=== PATIENT | female | born 1960 | race Caucasian/White ===

== ENCOUNTER 2016-12-02 05:46 | Inpatient (IN) | payer BC ==
[2016-11-18 11:12] VITALS: BMI 23.0
--- NOTE | 2016-11-18 11:52 | PAT Medication Instructions ---
Service Date Nov 18, 2016. Current Home Medication List Clobetasol Propionate (Clobetasol Propionate), 1 APPLN TOP PRN Clonazepam (Klonopin), 1 MG PO HS Cyclobenzaprine Hcl (Flexeril), 5 MG PO TID Desonide 0.05% (Desowen 0.05%), 1 APPLN TOP PRN Fluoxetine (Prozac), 6 MG PO QAM Gabapentin (Neurontin), 100 MG PO TID Hydrocodone/Acetaminophen 5MG/325MG ([place] 5MG/325MG), 1 TABLET PO Q4H PRN for N Multivitamin (Multivitamin), 1 TAB PO QAM Suvorexant (Belsomra), 20 MG PO HS Trazodone Hcl (Trazodone), 100 MG PO HS [Doterra Essential ], 1 DOSE PO QAM [Iron], 1 TAB PO QAM Medication Instructions For Your Scheduled Surgery - Hold the following medications 7 days prior to surgery: [Doterra Essential ], 1 DOSE PO QAM - Hold the following medications 24 hours prior to surgery: Desonide 0.05% (Desowen 0.05%), 1 APPLN TOP PRN Clobetasol Propionate (Clobetasol Propionate), 1 APPLN TOP PRN - Hold the following medications the morning of surgery: [Iron], 1 TAB PO QAM Multivitamin (Multivitamin), 1 TAB PO QAM Cyclobenzaprine Hcl (Flexeril), 5 MG PO TID - Take the following medications the morning of surgery with a sip of water OTHERWISE NOTHING TO EAT OR DRINK AFTER MIDNIGHT: Hydrocodone/Acetaminophen 5MG/325MG ([place] 5MG/325MG), 1 TABLET PO Q4H PRN (may take if needed up to 4 hours prior to surgery) Gabapentin (Neurontin), 100 MG PO TID Fluoxetine (Prozac), 6 MG PO QAM - Take the following medications as scheduled the night before surgery: Suvorexant (Belsomra), 20 MG PO HS Trazodone Hcl (Trazodone), 100 MG PO HS Cyclobenzaprine Hcl (Flexeril), 5 MG PO TID Clonazepam (Klonopin), 1 MG PO HS Hydrocodone/Acetaminophen 5MG/325MG ([place] 5MG/325MG), 1 TABLET PO Q4H PRN Gabapentin (Neurontin), 100 MG PO TID If you have any questions please call us at [phone] or [phone] or [phone]
[2016-11-18 12:41] LABS: BASO % 0.3 %; BASO ABS # 0.02 K/uL (0-0.2); COMPLETE YES; EOS % 1.2 %; HEMATOCRIT 36.7 % (37-47); IG% 0.3 %; LYMPH % 36.1 %; MEAN CELL VOLUME 93.6 fL (80-100); MEAN CORPUSCULAR HEMOGLOBIN 31.4 pg (25-34); MEAN CORPUSCULAR HGB CONC 33.5 g/dl (32-36); MEAN PLATELET VOLUME 10.3 fL (7.4-10.4); MONO % 9.2 %; NEUT % 52.9 %; PLATELET COUNT 250 K/uL (130-400); RED BLOOD COUNT 3.92 M/uL (4.2-5.4); WHITE BLOOD COUNT 6.93 K/uL (4.8-10.8)
[2016-11-18 12:50] LABS: URINE APPEARANCE CLEAR (CLEAR); URINE BILIRUBIN NEG (NEG); URINE COLOR YELLOW; URINE NITRITE NEG (NEG); URINE PH 5.5 (4.5-7.5); UROBILINOGEN NEG (NEG)
--- NOTE | 2016-11-18 12:52 | DIAGNOSTIC IMAGING REPORT ---
CHEST PREADMISSION(PA/LAT) CLINICAL HISTORY: Preoperative chest COMPARISON STUDY: No previous studies for comparison. FINDINGS: The cardiac and mediastinal contours are normal. There is no evidence of focal pulmonary consolidation. There is no evidence of failure. No pleural effusions are visualized.[ There is minor right basilar atelectasis/scarring IMPRESSION: No active disease in the chest. Electronically signed by: Bobby Chadwick M.D. 11/18/2016 12:50 PM Dictated Date/Time: 11/18/2016 12:50 PM
[2016-11-18 12:58] LABS: MANUAL MICROSCOPIC REQUIRED? NO; REVIEW REQ? NO
[2016-11-18 13:34] LABS: CALCIUM 8.7 mg/dl (8.5-10.1); POTASSIUM 4.8 mmol/L (3.5-5.1)
--- NOTE | 2016-12-01 22:09 | HISTORY & PHYSICAL EXAMINATION ---
DATE OF ADMISSION: 12/02/2016 CHIEF COMPLAINT: Neck pain, pain radiating to the right arm. HISTORY OF PRESENT ILLNESS: Ms. Barlow is a pleasant 56-year-old female who has been having a history of 3 months of pain in her neck, radiating down her right arm into her hand. The symptoms are worsening at this point and she is refractory to conservative measures. She is having difficulties using her right arm and hand for simple daily activities. She has failed conservative measures and at this point is considering possible surgical intervention. PAST MEDICAL HISTORY: Significant for osteoarthritis, lupus, insomnia, depression, and melanoma. She has had previous section and foot surgery as well. SOCIAL HISTORY: The patient is a former cigarette smoker, quit at age 53. Denies any alcohol or illicit drug use. REVIEW OF SYSTEMS: Recorded in patient's medical history. MEDICATIONS: Recorded in the patient's prehospital medication and history form. ALLERGIES: INCLUDE OXYCODONE, PENICILLIN, AND ACETAMINOPHEN. PHYSICAL EXAMINATION: GENERAL: The patient stands and moves easily about the exam room. She has well preserved range of motion of the cervical spine. EXTREMITIES: Her upper extremity motor exam reveals no focal atrophy. She is a bit hyperreflexive with 3+ bilateral brachioradialis, triceps and biceps, patellar and Achilles reflexes. She has positive Kirsten sign bilaterally. She has no Lhermitte phenomenon. Gait is stable. Calves are supple and nontender. Peripheral pulses are palpable. NEUROLOGIC: Visual alonso are grossly intact. The patient is alert and oriented. ABDOMEN: Soft and nontender. CARDIOVASCULAR: Reveals no gross abnormalities. RADIOGRAPHIC IMAGES: MRI performed recently reveals significant pathology at the C4-5 and C5-C6 levels. This also reveals bilateral neural foraminal disease at C6-C7. ASSESSMENT: Cervical pathology with compression of spinal cord and radiculopathy. PLAN: At this point, the patient has failed conservative measures, she is considering possible surgical intervention. Surgically would consider performing an anterior cervical corpectomy of C5 with an ACDF of C6-C7. This presents the potential for resolution of her neurologic symptoms. Risks of surgery include but are not limited to from anesthetic, stroke, blindness, paralysis, dysphonia, dysphagia, worsening of her symptoms. After thorough discussion with the patient, she has expressed the desire to proceed with surgery as outlined above. We will review the films with Dr. Kohler and make sure he agrees for the above-mentioned procedure and we will proceed with surgical intervention. If she has any further questions or concerns, she will contact our office.
[~2016-12-02] VITALS: Ht 160 cm; Wt 61.0 kg
[2016-12-02] VITALS (18 sets, daily range): BP systolic 105–133; BP diastolic 65–87; PULSE 65–92; TEMP 36.4–36.8; O2SAT 93–98; Ht 160 cm; Wt 61.0 kg
[~2016-12-02 05:46] MED LIST: CLBPO15 TOP; CLON1TAB3 PO; CYCL5TAB PO; DSWCR TOP; FLUO20CA35 PO; GABA-112 PO; HYDR-5688 PO; IRON PO; MULT-506 PO; SUVO1TAB4 PO; TRAZ100T29 PO; [UNRECOGNIZED DRUG - OTHER] PO
[2016-12-02] MEDS ORDERED: LACTATED RINGER'S 1000ML 1,000 ML IV SCH (06:00)
[2016-12-02] MEDS ORDERED: CEFAZOLIN 1000MG/55 ML D5W IV SCH (06:00)
[2016-12-02] MEDS ORDERED: MIDAZOLAM HCL 1 MG/ML 2ML VIAL ONE (06:39)
[2016-12-02] MEDS ORDERED: FENTANYL CITRATE INJ 50 MCG/1 ML 2 ML VIAL ONE ×4 (06:39→08:49)
[2016-12-02] MEDS ORDERED: BACITRACIN 50000 UNIT VIAL ONE (07:00)
--- NOTE | 2016-12-02 07:27 | History & Physical Bridge Note ---
H&P Re-Evaluation Bridge Note: I have examined the patient, reviewed the History & Physical and in the interval since the performance of the History & Physical I have noted the following changes of clinical significance: No changes noted
[2016-12-02] MEDS ORDERED: ONDANSETRON INJ 2 MG/ML 2 ML VIAL IV PRN ×2 (07:45→09:30)
[2016-12-02] MEDS ORDERED: ATROPINE SULFATE 0.1 MG/ML 5ML SYR IV PRN (07:45)
[2016-12-02] MEDS ORDERED: LABETALOL HCL IV 5 MG/ML 20ML IV PRN (07:45)
[2016-12-02] MEDS ORDERED: HYDROmorphone INJ 2 MG/ML SYR/VIAL ONE (08:06)
[2016-12-02] MEDS ORDERED: GLYCOPYRROLATE INJ 0.2 MG/ML VIAL ONE (08:20)
[2016-12-02] MEDS ORDERED: ONDANSETRON INJ 2 MG/ML 2 ML VIAL ONE (08:20)
[2016-12-02] MEDS ORDERED: PROPOFOL IV EMULSION 10 MG/ML 20 ML VIAL IV ONE (08:20)
[2016-12-02] MEDS ORDERED: NEOSTIGMINE METHYLSULFATE 1 MG/ML 10ML VIAL ONE (08:20)
[2016-12-02] MEDS ORDERED: ROCURONIUM BROMIDE 10 MG/ML 5 ML VIAL ONE (08:20)
[2016-12-02] MEDS ORDERED: DEXAMETHASONE SOD INJ 4 MG/ML VIAL ONE (08:20)
[2016-12-02] MEDS ORDERED: ESMOLOL HCL 10 MG/ML 10 ML VIAL ONE (08:20)
[2016-12-02] MEDS ORDERED: LIDOCAINE HCL 2% 2 ML VIAL (20MG/ML) ONE (08:20)
[2016-12-02] MEDS ORDERED: EpHEDrine SULFATE 50MG/5ML SYR ONE (09:02)
[2016-12-02] MEDS ORDERED: FLOSEAL HEMOSTATIC MATRIX 5ML TOP ONE (09:12)
--- NOTE | 2016-12-02 09:20 | [facility] Post Operative Brief Note ---
Immediate Operative Summary Operative Date Dec 02, 2016. Pre-Operative Diagnosis Cervical spinal stenosis Post-Operative Diagnosis Same as preoperative diagnosis Procedure(s) Performed C6-C7 Anterior Cervical Discectomy and Fusion; C5 Corpectomy, with [place] Surgeon Dr Kohler Check Inspector Surgeon(s) Max Hardin PA-C Estimated Blood Loss 50ML Findings stenosis Specimens None per surgeon
[2016-12-02] MEDS ORDERED: RACEPINEPHRINE 2.25% NEBU SOLN 0.5 ML VIAL INH PRN (09:30)
[2016-12-02] MEDS ORDERED: NALOXONE HCL 0.4 MG/1 ML VIAL/CARP IV PRN (09:30)
[2016-12-02] MEDS ORDERED: DO NOT ADMINISTER FLU VACCINE PRN ×3 (09:30)
[2016-12-02] MEDS ORDERED: DEXAMETHASONE INJ 8 MG in SYRINGE 0 ML IV PRN (09:30)
[2016-12-02] MEDS ORDERED: ACETAMINOPHEN IV 100 ML IV PRN (09:30)
[2016-12-02] MEDS ORDERED: MAGNESIUM HYDROXIDE SUSP 30 ML UDC PO PRN (09:30)
[2016-12-02] MEDS ORDERED: LORAZEPAM INJ 0.5 MG in SYRINGE 0.75 ML IV PRN (09:30)
[2016-12-02] MEDS ORDERED: DO NOT ADMINISTER PNEUMOCOCCAL VACCINE PRN ×2 (09:30)
[2016-12-02] MEDS ORDERED: DiphenhydrAMINE HCL 50 MG/ML VIAL IV PRN (09:30)
[2016-12-02] MEDS ORDERED: HYDROmorphone INJ 0.5 MG/0.5 ML SYR IV PRN (09:30)
--- NOTE | 2016-12-02 09:44 | DIAGNOSTIC IMAGING REPORT ---
Cervical SPINE, INTRAOPERATIVE FLUOROSCOPY HISTORY: C6-C7 ACDF. C5 corpectomy. FLUOROSCOPY TIME: 7 seconds. FINDINGS: Intraoperative fluoroscopy was provided for the cervical spine. 2 fluoroscopic spot images were obtained. Anterior cervical discectomy and fusion from C4 through T1. There is a corpectomy at C5 and C6. IMPRESSION: Fluoroscopy provided for a anterior cervical discectomy and fusion from C4 through T1.. Electronically signed by: Alon Hampton M.D. 12/02/2016 9:43 AM Dictated Date/Time: 12/02/2016 9:41 AM
[2016-12-02] MEDS: HYDROmorphone INJ 2 MG/ML SYR/VIAL IV PRN ×9 (09:46→10:25)
--- NOTE | 2016-12-02 10:01 | OPERATIVE REPORT ---
DATE OF OPERATION: 12/02/2016 PREOPERATIVE DIAGNOSIS: Cervical spondylosis, myeloradiculopathy. POSTOPERATIVE DIAGNOSIS: Same. PROCEDURE PERFORMED: 1. Anterior cervical corpectomy C5. 2. Anterior cervical discectomy C6-C7. 3. Anterior cervical arthrodesis C4-C6 and C6-C7. 4. Placement of PEEK cage 21 mm in height at C4-C6 and 7 mm at C6-C7. 5. Placement of Schafer plate and screws from C4-C7. SURGEON: Dr. Gerald Kohler. PEWTER FABRICATOR: Ray Hardin PA-C. Due to the complex nature of the procedure, the entire surgery was performed with the assistant kitchen manager of Ray Hardin PA-C. The assistant oceanographer, under direct supervision, was involved in the actual performance of all aspects of the surgical procedure including hemostasis, tissue retraction and incision, instrument management, patient positioning, and wound closure. ANESTHESIA: General. DISPOSITION: The patient awakened and taken to PACU in stable condition. HISTORY OF PATIENT'S PROBLEMS: This is a 56-year-old female that presents with above-mentioned diagnosis. After failing an extensive course of nonoperative care, elected to undergo the above-mentioned procedure. Risks, benefits, pros, cons, and alternatives were outlined in detail preoperatively. OPERATION AND FINDINGS: PROCEDURE: The patient was met with preoperatively, case discussed and all questions were addressed. At that point the patient was taken back to operative suite and after undergoing successful general endotracheal intubation via department of anesthesia was placed in prone position on Roger table atop Luther frame. All bony prominences were well padded and the eyes were inspected to insure there was no external pressure placed upon them. At this point the anterior cervical spine was prepped and draped in normal sterile fashion. With the assistance of fluoroscopy, we identified the C5-C6 disc space and transverse incision was placed overlying this region. Sharp dissection with the assistance of bipolar electrocautery was performed down to and exposing the anterior cervical spine from C4-C7. A self-retaining retractor was placed. We verified our position with fluoroscopy and a complete discectomy of C4-5 was performed out to the uncovertebral joints followed by C5-C6. [place] distracting pins were then placed in C4 and C6 to distract across the C5 vertebral body. A complete corpectomy was then performed including removal of all posterior annular fibers, longitudinal ligament and bilateral foraminotomies for complete decompression. Endplates were then burred to subcortical bleeding bone and a 21 mm PEEK cage filled with locally harvested morcellized autograft and Lashay bone grafting tapped in position. Distracting apparatus was removed and we proceeded to C6-C7 and again a complete discectomy was performed out to the uncovertebral joints bilaterally including removal of all posterior annular fibers, longitudinal ligament for bilateral foraminotomies. Again, endplates were burred to subcortical bleeding bone and a 7 mm PEEK cage filled with locally harvested morcellized autograft and Lashay bone grafting tapped into position. Distracting apparatus was removed. All anterior osteophytes burred to a smooth cortical surface and a Schafer plate and screws applied with the assistance of fluoroscopy. The incision was then copiously irrigated, explored to ensure there was no damage to surrounding structures or remaining bleeding. A 10 round MILLY drain inserted. It was then closed with 2-0 Vicryl in the fascia, 4-0 Monocryl for final skin closure. Steri-Strips and sterile dressing placed. The patient was awakened and taken to PACU in stable condition. I attest to the content of the Intraoperative Record and any orders documented therein. Any exceptio ns are noted below.
--- NOTE | 2016-12-02 11:02 | Anesthesiology Progress Note ---
Anesthesia Post Op Note Date & Time Dec 02, 2016 at 11:02 Vital Signs Vital Signs Past 12 Hours Date Time Temp Pulse Resp B/P Pulse Ox O2 Delivery O2 Flow Rate FiO2 12/02/16 10:55 36.6 79 16 132/83 97 Nasal Cannula 4.0 Humidified Oxygen 12/02/16 10:50 36.4 78 14 128/75 95 Nasal Cannula 4 12/02/16 10:40 77 14 128/72 98 Nasal Cannula 4 12/02/16 10:30 85 14 148/81 99 Nasal Cannula 4 12/02/16 10:20 36.4 79 14 128/84 99 Nasal Cannula 4 12/02/16 10:10 80 14 141/83 99 Nasal Cannula 4 12/02/16 10:00 85 14 151/89 100 Mask 10 12/02/16 09:51 85 14 131/84 100 Mask 10 12/02/16 09:42 36.3 88 14 118/81 100 Mask 10 12/02/16 06:30 36.4 83 18 119/76 96 Room Air Notes Mental Status: alert / awake / arousable, participated in evaluation Pt Amnestic to Procedure: Yes Nausea / Vomiting: adequately controlled Pain: adequately controlled Airway Patency, RR, SpO2: stable & adequate BP & HR: stable & adequate Hydration State: stable & adequate Anesthetic Complications: no major complications apparent
[2016-12-02] MEDS: HYDROCODONE/ACETAMOPHEN 5/325MG TAB PO PRN ×3 (11:23→21:50)
[2016-12-02] MEDS: LACTATED RINGER'S 1000ML 1,000 ML IV SCH ×2 (11:36→23:47)
[2016-12-02] MEDS ORDERED: SCOPOLAMINE 1.5 MG TDSY TD SCH (12:00)
[2016-12-02] MEDS: LORAZEPAM 0.5 MG TAB PO PRN ×2 (12:07→21:09)
[2016-12-02] MEDS: CYCLOBENZAPRINE HCL 5 MG TAB PO SCH ×2 (13:55→21:10)
[2016-12-02] MEDS: GABAPENTIN 100 MG CAP PO SCH ×2 (13:55→21:10)
[2016-12-02] MEDS ORDERED: HYDR-5688 PO (14:05)
--- NOTE | 2016-12-02 14:06 | Discharge Instructions ---
Discharge Instructions Admission Reason for Admission: Cervical Spinal Stenosis Discharge Discharge Diagnosis / Problem: stenosis Discharge Goals Goal(s): Improve function Activity Recommendations Activity Limitations: per Instructions/Follow-up section . Instructions / Follow-Up Instructions / Follow-Up ACTIVITY RECOMMENDATIONS: SELF CARE INSTRUCTIONS AFTER CERVICAL FUSIONS 1. No smoking. Smoking drastically decreases the chance of a solid fusion. 2. No bending, lifting more than 5 pounds, or twisting (roll like a log when turning in bed). 3. You may shower 3 days after surgery. Thoroughly dry wound. Do not soak in the tub. 4. Cervical collar: Must be worn at all times including sleeping. You may remove the brace only to bath, eat and if you are sitting in a recliner. 5. Please walk as much as you can for exercise. Gradually increase the distance that you walk as your endurance increases. SPECIAL CARE INSTRUCTIONS: VERY IMPORTANT TO READ AND REVIEW A. Do not take any anti-inflammatory medications (i.e. Indocin, Advil, Aspirin, Naprosyn, Aleve, Motrin, etc.) as these may inhibit the chance of a solid fusion. Tylenol is okay to take. B. Your surgical incision has been closed with a cosmetic suture under the skin that will dissolve in about 6 weeks. In 14 days, you can use a pair of clean scissors and cut the suture that is left outside of the skin at the ends of your incision. C. Complications are uncommon, but please contact us if you have any signs or symptoms of: 1. wound infection (fever higher than 102.5 degrees F, redness, separation of wound, drainage, or increasing pain from the incision) 2. blood clots in legs (pain, swelling, redness and warmth in legs) 3. urinary tract infection (fever higher than 102.5 degrees, burning upon urination or increased frequency of urination) 4. nerve problems (inability to walk on your toes or heels, numbness, loss of bowel or bladder control) 5. any other symptoms that concern you. D. Please call the office at if you have any concerns or questions about your operation or recovery. MANAGING PAIN AFTER SPINAL SURGERY 1. Narcotic medication is intended for short-term use and will be provided for surgical pain. Surgical pain usually lasts for a period of 4-6 weeks. Narcotic medication includes Percocet, Vicodin, Darvocet, Tylenol #3 or Lortab. 2. Longer-term pain is more appropriately treated with non-narcotic medication such as Tylenol ES. 3. Muscle spasm is not appropriately treated with narcotics. Muscle relaxers such as Soma, Flexeril or Skelaxin can be used along with Tylenol ES. 4. Remember that we all live with some "aches and pains". This is not unusual or uncommon after an injury or as we get older. 5. We will provide appropriate medication within the normal guidelines of their prescribed use. We will also be very cautious and aware of potential abuse and extended duration of patients' medication needs. 6. Please allow 2-3 days to process refills. Prescriptions will not be mailed but must be picked up at the office. FOLLOW UP VISIT: Keep your scheduled follow-up appointment. Any questions, please call the office at . Current Hospital Diet Patient's current hospital diet: Clear Liquid Diet Discharge Diet Recommended Diet: Regular Diet Procedures Procedures Performed: C6-C7 Anterior Cervical Discectomy and Fusion; C5 Corpectomy, with Lashay Pending Studies Studies pending at discharge: no Medical Emergencies . Who to Call and When: Medical Emergencies: If at any time you feel your situation is an emergency, please call 911 immediately. . Non-Emergent Contact Non-Emergency issues call your: Primary Care Provider . "Provider Documentation" section prepared by Gerald Kohler. VTE Core Measure Inpt VTE Proph given/why not?: Sadaf Lan, SCD's
[2016-12-02] MEDS: CLINDAMYCIN IV 600 MG in DEXTROSE 5% ADD-VANTAGE 50ML 50 ML IV SCH ×2 (16:11→23:48)
[2016-12-02] MEDS: DEXAMETHASONE INJ 6 MG in SYRINGE 0 ML IV SCH ×2 (16:11→23:48)
[2016-12-02] MEDS: CHECK SCOPOLAMINE PATCH PLACEMENT SCH ×2 (16:12→23:48)
[2016-12-02] MEDS: HYDROmorphone INJ 1 MG/ML SYR IV PRN ×2 (18:17→23:48)
[2016-12-02] MEDS ORDERED: CLONAZEPAM 1 MG TAB PO SCH (21:00)
[2016-12-02] MEDS ORDERED: TRAZODONE HCL 100 MG TAB PO SCH (21:00)
[2016-12-02] MEDS: DOCUSATE SODIUM 100 MG CAP PO SCH (21:09)
[2016-12-03] VITALS (7 sets, daily range): BP systolic 104–109; BP diastolic 66–68; PULSE 65–78; TEMP 36.5–37.1; O2SAT 94–96
[2016-12-03] MEDS: HYDROmorphone INJ 1 MG/ML SYR IV PRN (04:09)
[2016-12-03] MEDS: HYDROCODONE/ACETAMOPHEN 5/325MG TAB PO PRN ×2 (06:09→10:09)
[2016-12-03] MEDS: CLINDAMYCIN IV 600 MG in DEXTROSE 5% ADD-VANTAGE 50ML 50 ML IV SCH (07:40)
[2016-12-03] MEDS: DEXAMETHASONE INJ 6 MG in SYRINGE 0 ML IV SCH (07:40)
[2016-12-03] MEDS: CHECK SCOPOLAMINE PATCH PLACEMENT SCH (07:41)
[2016-12-03] MEDS: DOCUSATE SODIUM 100 MG CAP PO SCH (08:36)
[2016-12-03] MEDS: GABAPENTIN 100 MG CAP PO SCH (08:37)
[2016-12-03] MEDS: CYCLOBENZAPRINE HCL 5 MG TAB PO SCH (08:37)
[2016-12-03] MEDS ORDERED: FLUOXETINE HCL 20 MG CAP PO SCH (09:00)
--- NOTE | 2016-12-03 10:28 | DISCHARGE SUMMARY ---
DATE OF DISCHARGE: 12/03/2016. PRINCIPAL DIAGNOSIS: Cervical spondylosis. HOSPITAL COURSE FOLLOWS: On 12/02/2016 patient underwent anterior cervical discectomy and fusion, tolerated this well and taken to the orthopedic floor postoperatively. Postop day #1, she was up and ambulatory, swallowing well. No hoarseness. Pain was well controlled. Subsequently discharged home. Discharge orders and instructions can be found on the chart for further review.
[2016-12-04] MEDS ORDERED: BISACODYL 10 MG SUPP PR PRN (06:00)
[2016-12-04] MEDS ORDERED: BISACODYL 5 MG TABEC PO PRN (06:00)
[2016-12-04] MEDS ORDERED: POLYETHYLENE (MIRALAX) 17 GM PACK PO SCH (09:00)
== END 2016-12-03 13:42 | disposition home or self-care (01) | DRG 473 ==
LOC: ENRESERVTM → ENRESERVDT → C.ACU 05:46 → C.3E 07:50
PROVIDERS: ADMIT Orthopaedic Surgery Orthopaedic Surgery of the Spine; ATTEND Orthopaedic Surgery Orthopaedic Surgery of the Spine
PROC: 0RG20A0 Fusion of 2 or more Cervical Vertebral Joints with Interbody Fusion Device, Anterior Approach, Anterior Column, Open Approach (ICD-10-PCS; principal; 2016-12-02 07:45)
PROC: 0RT30ZZ Resection of Cervical Vertebral Disc, Open Approach (ICD-10-PCS; principal; 2016-12-02 07:45)
DX: M47.12 Other spondylosis with myelopathy, cervical region (principal); Z87.891 Personal history of nicotine dependence

== ENCOUNTER → 2017-01-02 | Outpatient (CLI) | payer BC ==
--- NOTE | 2017-01-03 13:36 | MAMMOGRAPHY REPORT ---
BILATERAL DIGITAL SCREENING MAMMOGRAM TOMOSYNTHESIS WITH CAD: 01/02/2017 CLINICAL HISTORY: Routine screening. Patient has no complaints. TECHNIQUE: Breast tomosynthesis in addition to standard 2D mammography was performed. Current study was also evaluated with a Computer Aided Detection (CAD) system. COMPARISON: Comparison is made to exams dated: 12/14/2015 mammogram, 12/09/2013 mammogram, 12/10/2014 martin mogram, 12/06/2012 mammogram, 12/05/2011 mammogram, and 12/03/2010 mammogram - [facility] nter. BREAST COMPOSITION: There are scattered areas of fibroglandular density in both breasts. FINDINGS: A linear scar marker overlies the upper outer middle one third of the left breast, denotin g an area of prior benign surgery. There is expected underlying architectural distortion in the lef t upper outer quadrant. There are scattered benign coarse calcifications bilaterally and a stable i ntramammary lymph node in the right upper outer quadrant. No suspicious mass, architectural distorti on or cluster of microcalcifications is seen. IMPRESSION: ACR BI-RADS CATEGORY 2: BENIGN There is no mammographic evidence of malignancy. A 1 year screening mammogram is recommended. The p atient will receive written notification of the results. Approximately 10% of breast cancers are not detected with mammography. A negative mammographic repor t should not delay biopsy if a clinically suggestive mass is present. Elizabeth Sanchez M.D. ay/:01/02/2017 16:20:47 Cardroom Supervisor: Jake QUINONES(Danica)(Jonah), [facility] letter sent: Normal 1/2 BI-RADS Code: ACR BI-RADS Category 2: Benign
== END | disposition home or self-care (01) ==
LOC: C.MAMM 12:59
PROVIDERS: ATTEND Physician Assistant
DX: Z12.31 Encounter for screening mammogram for malignant neoplasm of breast (principal)

== ENCOUNTER → 2017-02-02 | Outpatient (CLI) | payer BC | END | disposition home or self-care (01) | LOC: C.PAPS 09:50 | PROVIDERS: ATTEND Obstetrics & Gynecology | DX: Z01.419 Encounter for gynecological examination (general) (routine) without abnormal findings (principal) ==

== ENCOUNTER → 2018-01-04 | Outpatient (CLI) | payer BC ==
--- NOTE | 2018-01-05 07:22 | MAMMOGRAPHY REPORT ---
BILATERAL DIGITAL SCREENING MAMMOGRAM TOMOSYNTHESIS WITH CAD: 01/04/2018 CLINICAL HISTORY: Routine screening. Patient has no complaints. TECHNIQUE: Breast tomosynthesis in addition to standard 2D mammography was performed. Current study was also evaluated with a Computer Aided Detection (CAD) system. COMPARISON: Comparison is made to exams dated: 01/02/2017 mammogram, 12/14/2015 mammogram, 12/10/2014 martin mogram, 12/09/2013 mammogram, 12/06/2012 mammogram, and 12/05/2011 mammogram - [facility] er. BREAST COMPOSITION: There are scattered areas of fibroglandular density in both breasts. FINDINGS: No suspicious masses, calcifications, or areas of architectural distortion are noted in ei ther breast. There has been no significant interval change compared to prior exams. Scattered bilate ral benign-appearing calcifications are not significantly changed. A linear scar marker denotes a sc ar on the left upper outer breast; there is stable postsurgical architectural distortion within the l eft upper outer quadrant IMPRESSION: ACR BI-RADS CATEGORY 2: BENIGN There is no mammographic evidence of malignancy. A 1 year screening mammogram is recommended. The pa tient will receive written notification of the results. Approximately 10% of breast cancers are not detected with mammography. A negative mammographic report should not delay biopsy if a clinically suggestive mass is present. Bobbi Morrison M.D. ah/:01/04/2018 12:28:58 Experimental Machinist: Toya QUINONES(Danica)(Jonah)([place]), [facility] letter sent: Normal 1/2 BI-RADS Code: ACR BI-RADS Category 2: Benign
== END | disposition home or self-care (01) ==
LOC: C.MAMM 10:55
PROVIDERS: ATTEND Physician Assistant
DX: Z12.31 Encounter for screening mammogram for malignant neoplasm of breast (principal)

== ENCOUNTER → 2018-02-09 | Outpatient (CLI) | payer BC | END | disposition home or self-care (01) | LOC: C.PAPS 13:49 | PROVIDERS: ATTEND Obstetrics & Gynecology | DX: Z01.419 Encounter for gynecological examination (general) (routine) without abnormal findings (principal) ==

== ENCOUNTER 2021-08-19 14:21 | Observation (INO) ==
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
--- NOTE | 2021-08-19 19:45 | CT Scan Report ---
CT head/brain wo con CLINICAL HISTORY: confusion, mood changes, h/o breast CA COMPARISON STUDY: No previous studies for comparison. CT DOSE: 638.56 mGycm TECHNIQUE: Standard CT of the Brain was performed without IV contrast. A dose lowering technique was utilized adhering to the principles of ALARA. FINDINGS: Extraaxial space: There is no evidence for subdural hematoma. There are no extra-axial fluid collecti ons. Ventricles and cisterns: The ventricles are mildly dilated bilaterally. There is no evidence for mid line shift or mass effect. Parenchyma: There is no subarachnoid or intraparenchymal hemorrhage. There is evidence for small lac unar infarct involving the head and thalamus on the right. Its age cannot be determined by this study . There is no other evidence for an acute infarct or cerebral edema. There is homogeneous attenuation of the brain parenchyma. There are no gross mass lesions. Osseous structures: There is no evidence for an acute fracture. The visualized paranasal sinuses are clear. The mastoid air cells are clear bilaterally. Soft tissues: There is no evidence for focal soft tissue swelling. IMPRESSION: Small lacunar infarct involving the head of the thalamus of undetermined age. If indicate d clinically, follow-up MRI could be obtained for further evaluation. ACT 112: Positive. There are findings on this exam that require communication between the performing entity and the patient following Patient Test Result Information Act ([place] Act 112) guidelines. Electronically signed by: Emil Vences M.D. 08/19/2021 7:44 PM
[2021-08-19 20:04] LABS: Basophils # (auto) 0.01 K/uL (0-0.2); Basophils % (auto) 0.2 %; Eosinophils # (auto) 0.21 K/uL (0-0.5); Eosinophils % (auto) 4.3 %; Hemoglobin 11.4 g/dL (12.0-16.0); Immature Granulocytes # (auto) 0.01 K/uL (0.00-0.02); Immature Granulocytes % (auto) 0.2 %; Lymphocytes # (auto) 1.94 K/uL (1.2-3.4); Lymphocytes % (auto) 39.7 %; Mean Corpuscular Hemoglobin 32.2 pg (25-34); Mean Corpuscular Hgb Conc 32.6 g/dL (32-36); Mean Corpuscular Volume 98.9 fL (80-100); Mean Platelet Volume 9.5 fL (7.4-10.4); Monocytes # (auto) 0.82 K/uL (0.11-0.59); Monocytes % (auto) 16.8 %; Neutrophils % (auto) 38.8 %; Platelet Count 241 K/uL (130-400); RDW Standard Deviation 54.4 fL (36.4-46.3); Red Blood Count 3.54 M/uL (4.2-5.4); White Blood Count 4.89 K/uL (4.8-10.8)
[2021-08-19 20:24] LABS: Albumin Level 3.4 gm/dl (3.4-5.0); BUN Creatinine Ratio 15.7 (10-20); Calcium 8.8 mg/dl (8.5-10.1); Creatinine Clr Calc Pharmacy 50.9 ml/min; Est GFR (African American) 69.9 ml/min; Est GFR (Non-African American) 60.3 ml/min; Potassium 4.3 mmol/L (3.5-5.1)
[2021-08-19 20:34] LABS: Salicylate 1.7 mg/dl (2.8-20)
[2021-08-19 20:34] LABS: Albumin Globulin Ratio 1.1 (0.9-2); Bilirubin,Total 0.4 mg/dl (0.2-1); Globulin 3.1 gm/dl (2.5-4.0); Thyroid Stimulating Hormone 2.04 uIu/ml (0.300-4.500); Total Protein 6.5 gm/dl (6.4-8.2)
--- NOTE | 2021-08-20 01:10 | History and Physical Report ---
DATE OF ADMISSION: 08/19/2021. CHIEF COMPLAINT: Suicidal ideation, depression. HISTORY OF PRESENT ILLNESS: This is a 60-year-old female with past medical history significant for malignant neoplasm at central portion of breast estrogen receptor positive status post radiation, left partial mastectomy, history of anemia, history of SLE, history of depression, history of cocaine abuse, was brought in by her because of suicidal ideation at home. Patient is also having depression. She says she is mostly sleeping at home and also not eating much, tired, whenever she takes medication she feels weak and tired, tries to sleep, not doing much, right now she is not having any thoughts to hurt herself. Denies any fever or chills. No headache. Has some neck pain and chronic back pain. No chest pain, no abdominal pain, no shortness of breath, no cough. Sometimes she has difficulty swallowing pills and drinks lot of water.. Currently, no nausea, normal bowel and bladder movements. No swelling in the legs. ALLERGIES: BACTRIM, OXYCODONE, PENICILLIN. PAST MEDICAL HISTORY: As per admission. PAST SURGICAL HISTORY: Breast biopsy, carpal tunnel surgery, , lymph node biopsy, colonoscopy, dental surgery, back surgery, right foot bunionectomy, cervical surgery, left partial mastectomy. Treatment of extensive retinopathy photocoagulation. MEDICATIONS: The patient is on ascorbic acid 1000 mg p.o. daily, bupropion 300 mg p.o. a.m., calcium 600 mg p.o. daily, vitamin D 25 mcg p.o. daily, Klonopin 1-2 mg p.o. q. 6 hours p.r.n., duloxetine 60 mg p.o. b.i.d., folic acid 400 mcg p.o. daily, Megace 40 mg p.o. daily, magnesium oxide 250 mg p.o. daily, vitamin B12 2500 mcg p.o. daily, multivitamin one tablet p.o. daily, suvorexant 20 mg p.o. daily, trazodone 50-100 mg p.o. at bedtime. FAMILY HISTORY: Significant for father had arthritis, cancer, diabetes, heart disorder, hypertension. Mother has arthritis, blood disorder, eye problems, glaucoma. SOCIAL HISTORY: , quit smoking in 2014, smoked 0.25 packs a day. No alcohol use. No drug use. REVIEW OF SYSTEMS: As per HPI. Rest of review of systems is negative. PHYSICAL EXAMINATION: GENERAL: The patient is moderate build, not in acute distress. VITAL SIGNS: Temperature 36.2, pulse of 86, respiratory rate 16, blood pressure 132/92, oxygen 97% on room air. HEENT: Pupils equal, round and reactive to light. Atraumatic. Extraocular muscles intact. Oral mucosa moist. NECK: No JVD. No neck masses. CARDIOVASCULAR: S1 and S2 heard. Regular rate and rhythm. No murmur, no gallop. RESPIRATORY: Normal AP diameter. No accessory muscle use. No wheezing, no crackles. ABDOMEN: Soft, bowel sounds present, nontender, no distention. CENTRAL NERVOUS SYSTEM: Cranial nerves II-XII grossly intact. Power 5/5 in all extremities. co ordination of movements was normal. [id number] test normal. No pronator drift. Position sense intact. EXTREMITIES: No edema, no erythema. LABORATORY DATA: WBC 4.8, hemoglobin 11.4, hematocrit 35, platelets 241. Sodium 140, potassium 4.3, chloride 109, bicarbonate 26, BUN 13 Cr 0.95 glucose 84, calcium 8.8, total bilirubin 0.4, AST 18, ALT 21, alkaline phosphatase 59. TSH 2.04. acetaminophen 3, salicylates 1.7. Ethyl alcohol less than 3. IMAGING DATA: CT of the head showing small lacunar infarct involving the head of the thalamus of undetermined age. If indicated followup MRI could be obtained for further evaluation. ASSESSMENT AND PLAN: This is a 60-year-old female who presented with suicidal ideation. 1. Suicidal ideation and history of depression going on for some time and is also getting angry at home. Continue her home medications. One-on-one suicidal precautions . Consult Psychiatry in a.m. for further recommendation. 2. Questionable cerebrovascular accident on CAT scan of undetermined age. MRI ordered in the ER done, the results are not back. We will follow the results.Follow echo. Started on aspirin. Consult Neurology in a.m. for further recommendations. 3. History of breast cancer, status post partial mastectomy and radiation, follow with Oncology and Radiation Oncology. 4. History of cocaine abuse. 5. Deep venous thrombosis prophylaxis: Lovenox for now. DISPOSITION: Admit to med tele. PT, OT prior to discharge. Social service to help with discharge planning. Level 1, full code. Job ID: [id number]
[2021-08-20] MEDS ORDERED: clonazePAM 1 MG TAB PO PRN (04:27)
[2021-08-20] MEDS ORDERED: NITROGLYCERIN SL 0.4 MG/TAB TAB SL PRN (04:27)
[2021-08-20] MEDS ORDERED: POLYETHYLENE (MIRALAX) 17 GM PACK PO PRN (04:27)
[2021-08-20 05:41] LABS: Basophils # (auto) 0.02 K/uL (0-0.2); Basophils % (auto) 0.5 %; Eosinophils # (auto) 0.24 K/uL (0-0.5); Eosinophils % (auto) 6.1 %; Hematocrit (blood only) 34.2 % (37-47); Hemoglobin 11.1 g/dL (12.0-16.0); Immature Granulocytes # (auto) 0.02 K/uL (0.00-0.02); Immature Granulocytes % (auto) 0.5 %; Lymphocytes # (auto) 1.64 K/uL (1.2-3.4); Lymphocytes % (auto) 41.5 %; Mean Corpuscular Hemoglobin 31.8 pg (25-34); Mean Corpuscular Hgb Conc 32.5 g/dL (32-36); Mean Platelet Volume 9.3 fL (7.4-10.4); Monocytes # (auto) 0.71 K/uL (0.11-0.59); Neutrophils # (auto) 1.32 K/uL (1.4-6.5); Neutrophils % (auto) 33.4 %; Platelet Count 243 K/uL (130-400); RDW Coefficient of Variation 15.2 % (11.5-14.5); RDW Standard Deviation 54.1 fL (36.4-46.3); Red Blood Count 3.49 M/uL (4.2-5.4); White Blood Count 3.95 K/uL (4.8-10.8)
[2021-08-20 06:07] LABS: BUN Creatinine Ratio 14.1 (10-20); Calcium 8.8 mg/dl (8.5-10.1); Creatinine Clr Calc Pharmacy 53.4 ml/min; Est GFR (African American) 74.4 ml/min; Est GFR (Non-African American) 64.2 ml/min; Potassium 4.2 mmol/L (3.5-5.1)
--- NOTE | 2021-08-20 07:04 | Hospitalist Progress Note ---
Date of Service August 20, 2021 Assessment & Plan (1) Altered mental status: (2) Bipolar affect, depressed: Plan: This is a 60-year-old female who presented with suicidal ideation and confusion. 1. Suicidal ideation and history of depression going on for some time and is also getting angry at home. Continued her home medications on admission. Psychiatry was consulted and adjusting her medications, notably Cymbalta dose 60mBID seems too high and pt is also on klonapin which can make her more prone to falls. Also concern for poss. serotonin syndrome. One-on-one suicidal precautions . 2. Questionable cerebrovascular accident on CAT scan of undetermined age.Confusion. MRI brain ordered and unremarkable. Echo ordered. Started on aspirin on admission. Neurology consulted, appreciate their input. Obtain vit. B1, B12 levels, ammonia level 3. History of breast cancer, status post partial mastectomy and radiation, follow with Oncology and Radiation Oncology. 4. History of cocaine abuse. DVT prophylaxis: Lovenox for now. DISPOSITION: med tele. Pt can not leave AMA. PT, OT prior to discharge. Social service to help with discharge planning. Code: full code. Admission and Anticipated Discharge Date Admission Date: August 20, 2021 Subjective Pt seen in follow up of depression/ anxiety, confusion Currently laying in bed in NAD She is able to hold a conversation and is cooperative She seems to be answering questions appropriately - says she "had a fit again" and that's why she was brought into the hospital But she also seems somewhat confused, says she caicedo dto pay for food in ER Denies any chest pain, shortness of breath, abd. pain, n/v, or CAICEDO Review of Systems Review of Systems: All systems reviewed & are unremarkable except as noted in Subjective Physical Exam Physical Exam: GENERAL: The patient is moderate build, not in acute distress. HEENT: NC/AT, EOMI, PERRL. Oral mucosa moist. NECK: No JVD. No neck masses. CARDIOVASCULAR: S1 and S2 heard. Regular rate and rhythm. No murmur, no gallop. RESPIRATORY: Normal AP diameter. No accessory muscle use. No wheezing, no crackles. ABDOMEN: Soft, bowel sounds present, nontender, no distention. NEURO/PSYCH: Awake and alert, able to answer some questions appropriately, but also somewhat confused. Speech fluent, no facial asymmetry. Power 5/5 in all extremities. No sensory loss noted. EXTREMITIES: No edema, no erythema. Results & Data Results & Data ([facility]) Vital Signs (Past 12 Hours) Vital Signs Pulse Resp BP Pulse Ox 08/19/21 19:03 86 16 132/92 97 Laboratory Results 08/20/21 08/20/21 08/20/21 Range/Units 05:30 05:30 00:14 WBC 3.95 L (4.8-10.8) K/uL RBC 3.49 L (4.2-5.4) M/uL Hgb 11.1 L (12.0-16.0) g/dL Hct 34.2 L (37-47) % MCV 98.0 (80-100) fL MCH 31.8 (25-34) pg MCHC 32.5 (32-36) g/dL RDW Std Deviation 54.1 H (36.4-46.3) fL RDW Coeff of Lore 15.2 H (11.5-14.5) % Plt Count 243 (130-400) K/uL MPV 9.3 (7.4-10.4) fL Immature Gran % (Auto) 0.5 % Neut % (Auto) 33.4 % Lymph % (Auto) 41.5 % [place] % (Auto) 18.0 % Eos % (Auto) 6.1 % Baso % (Auto) 0.5 % Neut # (Auto) 1.32 L (1.4-6.5) K/uL Lymph # (Auto) 1.64 (1.2-3.4) K/uL [place] # (Auto) 0.71 H (0.11-0.59) K/uL Eos # (Auto) 0.24 (0-0.5) K/uL Baso # (Auto) 0.02 (0-0.2) K/uL Immature Gran # (Auto) 0.02 (0.00-0.02) K/uL Sodium 139 (136-145) mmol/L Potassium 4.2 (3.5-5.1) mmol/L Chloride 107 (98-107) mmol/L Carbon Dioxide 28 (21-32) mmol/L Anion Gap 4.0 (3-11) BUN 13 (7-18) mg/dl Creatinine 0.95 (0.6-1.2) mg/dl Est Cr Clr Drug Dosing 53.4 ml/min Est GFR ( Amer) 74.4 ml/min Est GFR (Non-Af Amer) 64.2 ml/min BUN/Creatinine Ratio 14.1 (10-20) Glucose 84 (70-99) mg/dl Calcium 8.8 (8.5-10.1) mg/dl Magnesium 2.0 (1.8-2.4) mg/dl Total Bilirubin (0.2-1) mg/dl AST (15-37) U/L ALT (12-78) U/L Alkaline Phosphatase (45-117) U/L Total Protein (6.4-8.2) gm/dl Albumin (3.4-5.0) gm/dl Globulin (2.5-4.0) gm/dl Albumin/Globulin Ratio (0.9-2) TSH (0.300-4.500) uIu/ml Salicylates (2.8-20) mg/dl Acetaminophen (10-30) ug/ml Ethyl Alcohol mg/dL (0-3) mg/dl COVID-19 Eval Order SARS-CoV-2 (PCR) NEGATIVE (Negative) 08/20/21 08/19/21 08/19/21 Range/Units 00:14 19:50 19:50 WBC (4.8-10.8) K/uL RBC (4.2-5.4) M/uL Hgb (12.0-16.0) g/dL Hct (37-47) % MCV (80-100) fL MCH (25-34) pg MCHC (32-36) g/dL RDW Std Deviation (36.4-46.3) fL RDW Coeff of Lore (11.5-14.5) % Plt Count (130-400) K/uL MPV (7.4-10.4) fL Immature Gran % (Auto) % Neut % (Auto) % Lymph % (Auto) % [place] % (Auto) % Eos % (Auto) % Baso % (Auto) % Neut # (Auto) (1.4-6.5) K/uL Lymph # (Auto) (1.2-3.4) K/uL [place] # (Auto) (0.11-0.59) K/uL Eos # (Auto) (0-0.5) K/uL Baso # (Auto) (0-0.2) K/uL Immature Gran # (Auto) (0.00-0.02) K/uL Sodium (136-145) mmol/L Potassium (3.5-5.1) mmol/L Chloride (98-107) mmol/L Carbon Dioxide (21-32) mmol/L Anion Gap (3-11) BUN (7-18) mg/dl Creatinine (0.6-1.2) mg/dl Est Cr Clr Drug Dosing ml/min Est GFR ( Amer) ml/min Est GFR (Non-Af Amer) ml/min BUN/Creatinine Ratio (10-20) Glucose (70-99) mg/dl Calcium (8.5-10.1) mg/dl Magnesium (1.8-2.4) mg/dl Total Bilirubin (0.2-1) mg/dl AST (15-37) U/L ALT (12-78) U/L Alkaline Phosphatase (45-117) U/L Total Protein (6.4-8.2) gm/dl Albumin (3.4-5.0) gm/dl Globulin (2.5-4.0) gm/dl Albumin/Globulin Ratio (0.9-2) TSH (0.300-4.500) uIu/ml Salicylates 1.7 L (2.8-20) mg/dl Acetaminophen 3 L (10-30) ug/ml Ethyl Alcohol mg/dL < 3.0 (0-3) mg/dl COVID-19 Eval Order Covid19 at [facility] SARS-CoV-2 (PCR) (Negative) 08/19/21 08/19/21 Range/Units 19:50 19:49 WBC 4.89 (4.8-10.8) K/uL RBC 3.54 L (4.2-5.4) M/uL Hgb 11.4 L (12.0-16.0) g/dL Hct 35.0 L (37-47) % MCV 98.9 (80-100) fL MCH 32.2 (25-34) pg MCHC 32.6 (32-36) g/dL RDW Std Deviation 54.4 H (36.4-46.3) fL RDW Coeff of Lore 15.0 H (11.5-14.5) % Plt Count 241 (130-400) K/uL MPV 9.5 (7.4-10.4) fL Immature Gran % (Auto) 0.2 % Neut % (Auto) 38.8 % Lymph % (Auto) 39.7 % [place] % (Auto) 16.8 % Eos % (Auto) 4.3 % Baso % (Auto) 0.2 % Neut # (Auto) 1.90 (1.4-6.5) K/uL Lymph # (Auto) 1.94 (1.2-3.4) K/uL [place] # (Auto) 0.82 H (0.11-0.59) K/uL Eos # (Auto) 0.21 (0-0.5) K/uL Baso # (Auto) 0.01 (0-0.2) K/uL Immature Gran # (Auto) 0.01 (0.00-0.02) K/uL Sodium 140 (136-145) mmol/L Potassium 4.3 (3.5-5.1) mmol/L Chloride 109 H (98-107) mmol/L Carbon Dioxide 26 (21-32) mmol/L Anion Gap 5.0 (3-11) BUN 16 (7-18) mg/dl Creatinine 1.00 (0.6-1.2) mg/dl Est Cr Clr Drug Dosing 50.9 ml/min Est GFR ( Amer) 69.9 ml/min Est GFR (Non-Af Amer) 60.3 ml/min BUN/Creatinine Ratio 15.7 (10-20) Glucose 78 (70-99) mg/dl Calcium 8.8 (8.5-10.1) mg/dl Magnesium (1.8-2.4) mg/dl Total Bilirubin 0.4 (0.2-1) mg/dl AST 18 (15-37) U/L ALT 21 (12-78) U/L Alkaline Phosphatase 59 (45-117) U/L Total Protein 6.5 (6.4-8.2) gm/dl Albumin 3.4 (3.4-5.0) gm/dl Globulin 3.1 (2.5-4.0) gm/dl Albumin/Globulin Ratio 1.1 (0.9-2) TSH 2.040 (0.300-4.500) uIu/ml Salicylates (2.8-20) mg/dl Acetaminophen (10-30) ug/ml Ethyl Alcohol mg/dL (0-3) mg/dl COVID-19 Eval Order SARS-CoV-2 (PCR) (Negative) Diagnostic Findings CT head IMPRESSION: Small lacunar infarct involving the head of the thalamus of undetermined age. If indicated clinically, follow-up MRI could be obtained for further evaluation. Medications Administered Current Inpatient Medications Acetaminophen (Acetaminophen 325 Mg Tab) 650 mg PO Q4H PRN PRN Reason: Pain or Fever Stop: 09/19/21 04:26 Ascorbic Acid (Ascorbic Acid 500 Mg Tab) 1,000 mg PO DAILY [place] Stop: 09/19/21 08:59 Bupropion HCl (Bupropion Xl 300 Mg Tabcr) 300 mg PO QAM [place] Stop: 09/19/21 08:59 Calcium Carbonate (Calcium Carbonate 1250mg Tab) 1,250 mg PO DAILY [place] Stop: 09/19/21 08:59 Clonazepam (Clonazepam 1 Mg Tab) 1 - 2 mg PO Q6H PRN PRN Reason: Anxiety Stop: 09/19/21 04:26 Last Admin: 08/20/21 05:29 Dose: 2 mg Documented by: Cyanocobalamin (Cyanocobalamin (Vitamin B-12) 2,500 Mcg Tab.Subl) 2,500 mcg SL DAILY [place] Stop: 09/19/21 08:59 Duloxetine HCl (Duloxetine Hcl 60 Mg Cap) 60 mg PO BID [place] Stop: 09/19/21 08:59 Enoxaparin Sodium (Enoxaparin Inj 40 Mg/0.4 Ml Syr) 40 mg SQ Q24H [place] Stop: 09/19/21 08:59 Folic Acid (Folic Acid 400 Mcg Tab) 400 mcg PO DAILY [place] Stop: 09/19/21 08:59 Magnesium Oxide (Magnesium Oxide 400 Mg Tab) 400 mg PO DAILY [place] Stop: 09/19/21 08:59 Miscellaneous (Vyvanse 40 Mg - Order Awaiting Action) 1 ea N/A QS [place] Stop: 09/19/21 07:59 Miscellaneous (Belsomra 20 Mg - Order Awaiting Action) 1 ea N/A QS [place] Stop: 09/19/21 07:59 Multivitamins (Multivitamin Tab) 1 tab PO DAILY [place] Stop: 09/19/21 08:59 Nitroglycerin (Nitroglycerin Sl 0.4 Mg/Tab Tab) 0.4 mg SL UD PRN PRN Reason: Chest Pain Stop: 09/19/21 04:26 Polyethylene Glycol (Polyethylene (Miralax) 17 Gm Pack) 17 gm PO DAILY PRN PRN Reason: Constipation Stop: 09/19/21 04:26 Trazodone HCl (Trazodone Hcl 50 Mg Tab) 50 mg PO HS PRN PRN Reason: Sleep Stop: 09/19/21 20:59 Vitamin D (Cholecalciferol 1,000 Units 25 Mcg Tab) 1,000 units PO DAILY [place] Stop: 09/19/21 08:59 (1) Altered mental status Altered mental status type: unspecified Qualified Code(s): R41.82 - Altered mental status, unspecified
--- NOTE | 2021-08-20 07:17 | Magnetic Resonance Report ---
MR brain wo con HISTORY: 60 years-old Female behavioral change, h/o breast CA patient presents with altered mental s tatus] impression. History of melanoma and breast cancer COMPARISON: Head CT of same day TECHNIQUE: Multiplanar multisequence MRI of the brain was obtained without the use of IV contrast. FINDINGS: There is no restricted diffusion to suggest acute or subacute infarct. Encephalomalacia related to ch ronic infarcts of the left cerebellar hemisphere measuring up to 2.2 cm. No acute intracranial hemorr kd, midline shift, abnormal extra axial collection, hydrocephalus or intracranial mass. Motion degr aded exam. No pathologic blooming artifact on the T2 star series. Age-related involutional changes. M ild scattered T2/FLAIR hyperintense foci noted within the periventricular white matter of the cerebra l hemispheres. Cerebral venous sinuses and major arterial flow voids appear patent. Mastoid air cells and paranasal sinuses are clear. The skull, orbits and soft tissues are unremarkable. Fluid surrounding the bilater al optic nerve tracts is favored to be physiologic. IMPRESSION: 1. No acute intracranial abnormality. No acute or subacute infarct. 2. 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 3. Age-related involutional changes with suggestion of mild chronic microvascular ischemic disease. ACT 112: Negative or not required by law. The above report was generated using voice recognition software. It may contain grammatical, syntax o r spelling errors. Electronically signed by: Jaison Mix M.D. 08/20/2021 7:15 AM
[2021-08-20] MEDS: CYANOCOBALAMIN (VITAMIN B-12) 2,500 MCG TAB.SUBL SL SCH (08:08)
[2021-08-20] MEDS: ASPIRIN 81 MG ECTAB PO SCH (08:08)
[2021-08-20] MEDS: ASCORBIC ACID 500 MG TAB PO SCH (08:09)
[2021-08-20] MEDS: FOLIC ACID 400 MCG TAB PO SCH (08:09)
[2021-08-20] MEDS: MAGNESIUM OXIDE 400 MG TAB PO SCH (08:09)
[2021-08-20] MEDS: ENOXAPARIN INJ 40 MG/0.4 ML SYR SQ SCH (08:10)
[2021-08-20] MEDS: MULTIVITAMIN TAB PO SCH (08:10)
[2021-08-20] MEDS: CHOLECALCIFEROL 1,000 UNITS 25 MCG TAB PO SCH (08:10)
[2021-08-20] MEDS: CALCIUM CARBONATE 1250MG TAB PO SCH (08:10)
[2021-08-20] MEDS ORDERED: [UNRECOGNIZED DRUG - OTHER] PO SCH (09:00)
[2021-08-20] MEDS ORDERED: buPROPion XL 300 MG TABCR PO SCH (09:00)
[2021-08-20] MEDS ORDERED: DULoxetine HCL 60 MG CAP PO SCH (09:00)
[2021-08-20] MEDS ORDERED: CALCIUM CARBONATE 1,250 MG/5 ML UDC PO SCH (09:00)
--- NOTE | 2021-08-20 14:30 | Neurology Consultation ---
Date of Consultation August 20, 2021 Assessment & Plan (1) Altered mental status: 1. MRI brain- no acute findings 2. EEG - ordered 3. psychiatry for depression issues 4. TTE - no ASD 5. PT/OT speech for discharge needs 6. if not contra indicated would start aspirin Supervising Physician Co-Signing Physician Notes I have seen and discussed above patient with Dr Radha Biggs, neurology History of Present Illness Reason for Consultation: cva? Requesting Physician: Peter Gay MD Attending Physician: Peter Gay MD History of Present Illness Silvia is a 60 year old female with PMH malignant neoplasm at central portion of breast estrogen receptor positive status post radiation, left partial mastectomy, anemia, SLE, depression, cocaine abuse, was brought to [facility] ED 08/19/21 by her because of suicidal ideation at home and depression. She is mostly sleeping at home and also not eating much, tired, whenever she takes medication she feels weak and tired, tries to sleep, not doing much, right now she is not having any thoughts to hurt herself.She complained of some neck pain and chronic back pain. She does have some issues with swallowing pills and drinks lot of water. She says she is really depressed and someone told her she has parkinson's. She feels she can take it any more but is not thinking about suicide. This year she had covid, lumber back surgery, diagnosed with CA breast and surgery, then radiation and chemotherapy. She does not do much at home and does not cook anymore because they would eat before coming home. She refuses to do it. She does house work but she is tired all the time and now just wants to be left alone so she can sleep. denies CP, SOB, abdominal pain, one side weakness, numbness tingling, new bowel or bladder issues. Allergies Allergy/AdvReac Type Severity Reaction Status Date / Time sulfamethoxazole Allergy Severe Anaphylaxis Verified 08/19/21 19:02 [From Bactrim] trimethoprim [From Bactrim] Allergy Severe Anaphylaxis Verified 08/19/21 19:02 oxycodone Allergy Intermediate ITCHING Verified 08/19/21 19:02 Penicillins AdvReac Unknown NOT Verified 08/19/21 19:02 EFFECTIVE Home Medications Medication Instructions Recorded Confirmed Type DOTERRA ESSENTIAL 2 dose PO QAM #0 08/25/20 08/19/21 History ascorbic acid (vitamin C) 500 mg 1,000 mg PO DAILY cap 01/27/21 08/19/21 History capsule calcium carbonate 600 mg calcium 600 mg PO DAILY 01/27/21 08/19/21 History (1,500 mg) tablet cholecalciferol (vitamin D3) 25 25 mcg PO DAILY 01/27/21 08/19/21 History mcg (1,000 unit) capsule folic acid 400 mcg tablet 0.4 mg PO DAILY 01/27/21 08/19/21 History magnesium oxide 250 mg PO DAILY 01/27/21 08/19/21 History mecobalamin (vitamin B12) 5,000 2,500 mcg PO DAILY tab 01/27/21 08/19/21 History mcg disintegrating tablet suvorexant 20 mg tablet (Belsomra) 20 mg PO HS 02/22/21 08/19/21 History duloxetine 60 mg capsule,delayed 60 mg PO BID cap 08/12/21 08/19/21 History release (Cymbalta) bupropion HCl 300 mg 24 hr tablet, 300 mg PO QAM 08/19/21 08/19/21 History extended release clonazepam 1 mg tablet 1 - 2 mg PO Q6H PRN 08/19/21 08/19/21 History lisdexamfetamine 40 mg capsule 40 mg PO DAILY 08/19/21 08/19/21 History (Vyvanse) multivitamin 1 tab PO DAILY 08/19/21 08/19/21 History trazodone 50 mg tablet 50 - 100 mg PO HS 08/19/21 08/19/21 History Patient History Medical History Anxiety Cervical stenosis of spinal canal Depression Diverticulosis Glaucoma History of chemotherapy 08/05/20-01/12/21 4 cycles Cyclophosphamide/Adriamycin/Taxol, 12 cycles Taxol Insomnia Melanoma Port-A-Cath in place Retinopathy Treated with laser photocoagulation Systemic lupus erythematosus Surgical History History of back surgery Laminectomy - L4/5 - spinal fusion May 2020 History of bunionectomy Right History of carpal tunnel surgery Right History of neck surgery Cervical spine surgery 2016 Hx of colonoscopy Previous section X 2 S/P LASIK surgery S/P tonsillectomy Status post left breast lumpectomy With SLN biopsy on 06/16/2020 Family History Mother Myocardial infarction Arthritis Father , at 74yo Myocardial infarction Hx of CABG Diabetes Prostate cancer Hypertension Brother Hypertension Son No problems noted. Son No problems noted. 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 Beliefs That Will Affect Care: None marital status: Current Living Situation: Spouse current occupational status: retired current occupation: [employer] How many Children do You have: 2 Other Information That Helps Us Care for You: No Feels Safe at Home: Yes Safety Concerns: Feels Safe At This Time caffeine: Yes (1 can diet coke/day) during the past year weight has: remained stable Assistive Devices: Cane and Walker Review of Systems Review of Systems: All systems reviewed & are unremarkable except as noted in HPI & below Physical Exam Physical Exam: Physical Exam: Constitutional: appearance over nourished, healthy and normal Ears, Nose, Mouth and Throat: mucous membranes moist, no injection and skin normal, eyes normal Cardiovascular: normal S-1 and S-2 and regular rate and rhythm Respiratory: clear to auscultation (CTA) and no rales Musculoskeletal: no peripheral edema and good distal pulses Skin: no stigmata of neurocutaneous disease noted and normal and intact, well healed incision lumbar spine Eyes: extraocular muscles intact (EOMI) and pupils equal, round and reactive to light (PERRL) NEUROLOGIC EXAMINATION: Mental status: Alert and interactive Oriented to full date and location Oriented to person Speech fluent with no evidence of aphasia Cranial Nerves smile eye brow raise symmetric Reflexes: Deep tendon reflexes were symmetrical and graded 2/5. toes neutral Sensory: intact to light cool Coordination: finger to nose Gait/Stance: Posture normal. Gait normal: with steady with steps, base, turning, and tandem gait. Motor: Negative for pronator drift of out stretched arms with eyes closed. Strength: biceps triceps hand laser specialist 5/5 bilaterally, hip flex, plantar flex ext Results & Data ([facility]) Vital Signs (Past 12 Hours) Vital Signs Temp Pulse Pulse Resp BP Pulse Ox 08/20/21 12:00 36.5 C 98 H 18 133/60 96 08/20/21 08:00 36.8 C 122 H 84 18 113/68 96 Laboratory Results Abnormal lab results 08/19/21 08/19/21 08/19/21 Range/Units 19:49 19:50 19:50 WBC (4.8-10.8) K/uL RBC 3.54 L (4.2-5.4) M/uL Hgb 11.4 L (12.0-16.0) g/dL Hct 35.0 L (37-47) % RDW Std Deviation 54.4 H (36.4-46.3) fL RDW Coeff of Lore 15.0 H (11.5-14.5) % Neut # (Auto) (1.4-6.5) K/uL [place] # (Auto) 0.82 H (0.11-0.59) K/uL Chloride 109 H (98-107) mmol/L Salicylates 1.7 L (2.8-20) mg/dl Acetaminophen 3 L (10-30) ug/ml 08/20/21 Range/Units 05:30 WBC 3.95 L (4.8-10.8) K/uL RBC 3.49 L (4.2-5.4) M/uL Hgb 11.1 L (12.0-16.0) g/dL Hct 34.2 L (37-47) % RDW Std Deviation 54.1 H (36.4-46.3) fL RDW Coeff of Lore 15.2 H (11.5-14.5) % Neut # (Auto) 1.32 L (1.4-6.5) K/uL [place] # (Auto) 0.71 H (0.11-0.59) K/uL Chloride (98-107) mmol/L Salicylates (2.8-20) mg/dl Acetaminophen (10-30) ug/ml Diagnostic Findings MRI brain-No acute intracranial abnormality. No acute or subacute infarct. 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 Age-related involutional changes with suggestion of mild chronic microvascular ischemic disease. TTE- 55-60% no ASD (1) Altered mental status Altered mental status type: unspecified Qualified Code(s): R41.82 - Altered mental status, unspecified
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
[2021-08-20] MEDS: clonazePAM 1 MG TAB PO PRN (15:46)
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
[2021-08-20] MEDS ORDERED: traZODone HCL 50 MG TAB PO PRN (21:00)
[2021-08-21 01:45] LABS: Appearance Urine Clear (Clear); Bilirubin Urine Negative (Negative); Blood Urine Negative (Negative); Color Urine Yellow; Glucose Urine UA Negative (Negative); Ketones Urine Negative (Negative); Leukocyte Esterase Urine Negative (Negative); Nitrite Urine Negative (Negative); Protein Urine Negative (Negative); Specific Gravity Urine 1.007 (1.000-1.030); Urobilinogen Urine Negative (Negative); pH Urine 5.5 (4.5-7.5)
[2021-08-21 02:21] LABS: Amphetamines+Metham, Urine Pos (Neg); Barbiturates, Urine Neg (Neg); Benzodiazepine, Urine Neg (Neg); Cocaine, Urine Neg (Neg); MDMA (Ecstacy), Urine Pos (Neg); Methadone, Urine Neg (Neg); Opiate, Urine Neg (Neg); Phencyclidine, Urine Neg (Neg)
[2021-08-21] MEDS: ACETAMINOPHEN 325 MG TAB PO PRN ×2 (05:03→22:42)
[2021-08-21] MEDS: CALCIUM CARBONATE 1250MG TAB PO SCH (09:15)
[2021-08-21] MEDS: ASCORBIC ACID 500 MG TAB PO SCH (09:15)
[2021-08-21] MEDS: ASPIRIN 81 MG ECTAB PO SCH (09:15)
[2021-08-21] MEDS: CHOLECALCIFEROL 1,000 UNITS 25 MCG TAB PO SCH (09:16)
[2021-08-21] MEDS: ENOXAPARIN INJ 40 MG/0.4 ML SYR SQ SCH (09:16)
[2021-08-21] MEDS: DULoxetine HCL 60 MG CAP PO SCH (09:16)
[2021-08-21] MEDS: CYANOCOBALAMIN (VITAMIN B-12) 2,500 MCG TAB.SUBL SL SCH (09:16)
[2021-08-21] MEDS: MAGNESIUM OXIDE 400 MG TAB PO SCH (09:17)
[2021-08-21] MEDS: FOLIC ACID 400 MCG TAB PO SCH (09:17)
[2021-08-21] MEDS: MULTIVITAMIN TAB PO SCH (09:17)
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
--- NOTE | 2021-08-21 11:34 | Psychiatric Progress Note ---
Date of Service August 21, 2021 Impression / Recommendations Impression 60 yo female with hx of bipolar disorder presents with AMS and significant lability/tearfulness now showing some improvement with reduction of polypharmacy. Differential remains broad for AMS but brain MRI showed no acute changes and she has responded well to reduction in cymbalta dose and discontinuation of Wellbutrin. Could represent delirium d/t polypharmacy versus mixed episode versus other medical cause. Encouragingly showing improvement in memory, fully oriented today and no signs of paranoia. She is not deemed to be at acute risk of harm to self given denial of SI and strong reasons for living though chronic risk is elevated given history of possible BPAD and her report of strained relationship with her . Once other potential medical causes are ruled out, if this is felt to be consistent with mixed episode of BPAD with irritability and erratic behavior could consider psychiatric hospitalization versus additional outpatient support since the medication adjustments seem to be helping. (1) Bipolar affect, depressed: (2) Altered mental status: -Klonopin 1 mg Bid prn for now -Cymbalta 60 mg qd -Will need to clarify and address if mood stabilizer is needed as AMS clears; remains unclear if she has experienced robby in the past -If acute need for agitation would suggest Zyprexa 5 mg IM, if felt to be consistent with delirium then may want to start zyprexa 2.5mg BID. -Liaison to obtain collateral from mother if she allows, currently refusing BG for d/t strained relationship . Interval History Identifying Information 60 yo woman with a history of BPAD and breast cancer who was admitted medically after presenting with AMS and reports of erratic behavior since receiving chemotherapy and radiation treatment. Psychiatry was consulted for recommendations. Chief Complaint "I'm feeling much clearer today". Review of Systems Notes Slept overnight, eating well. Subjective Subjective Patient was seen & assessed and interval progress reviewed. Today reports feeling clearer mentally. States her mood is "pretty good" though acknowledges how she has periods of lower mood when she thinks about past upsetting events such as when one of her dog's . She also discusses her strained relationship with her and recent stressor of having treatment for her cancer and the sequelae of having vision changes and more difficulty with her memory. States she feels like chemo and radiation "zapped my brain" in terms of making it harder to think and do things. She denies any current significant depressive symptoms. Unclear if BPAD is accurate given unclear history of robby. She acknowledges periods of SI, that have been occurring for many years, but denies SI today and states she would never act on these thoughts because she lives for her dogs and would never want to leave them. She thinks she may have been mixing up the amounts of her medication but can't be sure. Agrees with changes that were made. Physical Exam Psychiatric Orientation: alert and oriented x 3 Apperance: appropriately groomed Eye Contact: good eye contact Motor Behavior: no abnormal motor movements Speech: normal rate/rhythm/volume of speech Affect: + labile affect (tearful at times, endorses anger at other times ) Mood: no depressed mood and no anxious mood Thought Process: goal directed thought process Thought Content: reality based without delusions Suicidal Thoughts: denies suicidal thoughts Homicidal Thoughts: denies homicidal thoughts Hallucinations: no auditory hallucinations and no visual hallucinations Cognition: recent memory grossly intact, remote memory grossly intact, attention grossly intact and language grossly intact Estimated Intelligence: consistent with education level Insight: + fair insight Judgement: + fair judgement Vital Signs (Past 24 Hours) Last Vital Signs Temp 37.3 C 08/20/21 20:00 Pulse 80 08/21/21 03:23 Resp 14 08/21/21 03:23 BP 114/66 08/21/21 03:23 Pulse Ox 92 08/21/21 03:23 Results & Data ([facility]) Laboratory Results Laboratory Results - last 24 hr 08/21/21 08/21/21 08/21/21 01:35 01:35 01:35 Sodium Potassium Chloride Carbon Dioxide Anion Gap BUN Creatinine Est Cr Clr Drug Dosing Est GFR ( Amer) Est GFR (Non-Af Amer) BUN/Creatinine Ratio Glucose Calcium Phosphorus Magnesium Ammonia Vitamin B1 Vitamin B12 Urine Color Yellow Urine Appearance Clear Urine pH 5.5 Ur Specific [place] 1.007 Urine Protein Negative Urine Glucose (UA) Negative Urine Ketones Negative Urine Blood Negative Urine Nitrite Negative Urine Bilirubin Negative Urine Urobilinogen Negative Ur Leukocyte Esterase Negative Urine Opiates Screen Neg Ur Methadone, Qual Neg Urine Barbiturates Neg Ur Phencyclidine (PCP) Neg U Amphetamines Confirm Pending U Amphetamin/Meth Scrn Pos H U Methamphetamin Confrm Pending Urine MDEA Pending MDMA (Ecstasy) Screen Pos H MDMA Pending Urine MDMA Pending U Benzodiazepines Scrn Neg Ur Cocaine Metabolite Neg U Marijuana (THC) Screen Pos H U Marijuana THC Carboxy Pending Drug Screen Comment Pending 08/21/21 08/21/21 08/21/21 11:09 11:09 11:09 Sodium Pending Potassium Pending Chloride Pending Carbon Dioxide Pending Anion Gap Pending BUN Pending Creatinine Pending Est Cr Clr Drug Dosing Pending Est GFR ( Amer) Pending Est GFR (Non-Af Amer) Pending BUN/Creatinine Ratio Pending Glucose Pending Calcium Pending Phosphorus Pending Magnesium Pending Ammonia Vitamin B1 Pending Vitamin B12 Pending Urine Color Urine Appearance Urine pH Ur Specific [place] Urine Protein Urine Glucose (UA) Urine Ketones Urine Blood Urine Nitrite Urine Bilirubin Urine Urobilinogen Ur Leukocyte Esterase Urine Opiates Screen Ur Methadone, Qual Urine Barbiturates Ur Phencyclidine (PCP) U Amphetamines Confirm U Amphetamin/Meth Scrn U Methamphetamin Confrm Urine MDEA MDMA (Ecstasy) Screen MDMA Urine MDMA U Benzodiazepines Scrn Ur Cocaine Metabolite U Marijuana (THC) Screen U Marijuana THC Carboxy Drug Screen Comment 08/21/21 11:12 Sodium Potassium Chloride Carbon Dioxide Anion Gap BUN Creatinine Est Cr Clr Drug Dosing Est GFR ( Amer) Est GFR (Non-Af Amer) BUN/Creatinine Ratio Glucose Calcium Phosphorus Magnesium Ammonia Pending Vitamin B1 Vitamin B12 Urine Color Urine Appearance Urine pH Ur Specific [place] Urine Protein Urine Glucose (UA) Urine Ketones Urine Blood Urine Nitrite Urine Bilirubin Urine Urobilinogen Ur Leukocyte Esterase Urine Opiates Screen Ur Methadone, Qual Urine Barbiturates Ur Phencyclidine (PCP) U Amphetamines Confirm U Amphetamin/Meth Scrn U Methamphetamin Confrm Urine MDEA MDMA (Ecstasy) Screen MDMA Urine MDMA U Benzodiazepines Scrn Ur Cocaine Metabolite U Marijuana (THC) Screen U Marijuana THC Carboxy Drug Screen Comment Current Inpatient Medications Current Inpatient Medications: Current Inpatient Medications Acetaminophen (Acetaminophen 325 Mg Tab) 650 mg PO Q4H PRN PRN Reason: Pain or Fever Stop: 09/19/21 04:26 Last Admin: 08/21/21 05:03 Dose: 650 mg Documented by: Artificial Tears (Artificial Tears) 1 drops OP TID [facility] Stop: 09/20/21 13:59 Ascorbic Acid (Ascorbic Acid 500 Mg Tab) 1,000 mg PO DAILY [facility] Stop: 09/19/21 08:59 Last Admin: 08/21/21 09:15 Dose: 1,000 mg Documented by: Aspirin (Aspirin 81 Mg Ectab) 81 mg PO QAM [facility] Stop: 09/19/21 08:59 Last Admin: 08/21/21 09:15 Dose: 81 mg Documented by: Calcium Carbonate (Calcium Carbonate 1250mg Tab) 1,250 mg PO DAILY [facility] Stop: 09/19/21 08:59 Last Admin: 08/21/21 09:15 Dose: 1,250 mg Documented by: Clonazepam (Clonazepam 1 Mg Tab) 1 mg PO Q12H PRN PRN Reason: Anxiety Stop: 09/19/21 14:31 Last Admin: 08/20/21 15:46 Dose: 1 mg Documented by: Cyanocobalamin (Cyanocobalamin (Vitamin B-12) 2,500 Mcg Tab.Subl) 2,500 mcg SL DAILY [facility] Stop: 09/19/21 08:59 Last Admin: 08/21/21 09:16 Dose: 2,500 mcg Documented by: Duloxetine HCl (Duloxetine Hcl 60 Mg Cap) 60 mg PO QAM [facility] Stop: 09/20/21 08:59 Last Admin: 08/21/21 09:16 Dose: 60 mg Documented by: Enoxaparin Sodium (Enoxaparin Inj 40 Mg/0.4 Ml Syr) 40 mg SQ Q24H [facility] Stop: 09/19/21 08:59 Last Admin: 08/21/21 09:16 Dose: 40 mg Documented by: Folic Acid (Folic Acid 400 Mcg Tab) 400 mcg PO DAILY [facility] Stop: 09/19/21 08:59 Last Admin: 08/21/21 09:17 Dose: 400 mcg Documented by: Magnesium Oxide (Magnesium Oxide 400 Mg Tab) 400 mg PO DAILY [facility] Stop: 09/19/21 08:59 Last Admin: 08/21/21 09:17 Dose: 400 mg Documented by: Miscellaneous (Vyvanse 40 Mg - Order Awaiting Action) 1 ea N/A QS [facility] Stop: 09/19/21 07:59 Last Admin: 08/21/21 09:12 Dose: Not Given Documented by: Miscellaneous (Belsomra 20 Mg - Order Awaiting Action) 1 ea N/A QS [facility] Stop: 09/19/21 07:59 Last Admin: 08/21/21 09:12 Dose: Not Given Documented by: Multivitamins (Multivitamin Tab) 1 tab PO DAILY [facility] Stop: 09/19/21 08:59 Last Admin: 08/21/21 09:17 Dose: 1 tab Documented by: Nitroglycerin (Nitroglycerin Sl 0.4 Mg/Tab Tab) 0.4 mg SL UD PRN PRN Reason: Chest Pain Stop: 09/19/21 04:26 Polyethylene Glycol (Polyethylene (Miralax) 17 Gm Pack) 17 gm PO DAILY PRN PRN Reason: Constipation Stop: 09/19/21 04:26 Trazodone HCl (Trazodone Hcl 50 Mg Tab) 50 mg PO HS PRN PRN Reason: Sleep Stop: 09/19/21 20:59 Last Admin: 08/20/21 19:21 Dose: 50 mg Documented by: Vitamin D (Cholecalciferol 1,000 Units 25 Mcg Tab) 1,000 units PO DAILY [facility] Stop: 09/19/21 08:59 Last Admin: 08/21/21 09:16 Dose: 1,000 units Documented by: (1) Altered mental status Altered mental status type: unspecified Qualified Code(s): R41.82 - Altered mental status, unspecified
[2021-08-21 11:47] LABS: BUN Creatinine Ratio 12.8 (10-20); Creatinine Clr Calc Pharmacy 51.2 ml/min; Est GFR (African American) 70.8 ml/min; Est GFR (Non-African American) 61.1 ml/min; Magnesium 2.2 mg/dl (1.8-2.4)
[2021-08-21 11:48] LABS: Phosphorus 3.2 mg/dl (2.5-4.9)
[2021-08-21] MEDS: ARTIFICIAL TEARS OP SCH ×2 (13:01→19:51)
[2021-08-21] MEDS: clonazePAM 1 MG TAB PO PRN (14:34)
[2021-08-21 15:59] LABS: Thyroid Stimulating Hormone 0.927 uIu/ml (0.300-4.500)
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
[2021-08-21] MEDS: THIAMINE HCL 100 MG TAB PO SCH (16:51)
[2021-08-21] MEDS ORDERED: GADOBUTROL 30ML VIAL IV ONE (17:03)
[2021-08-21] MEDS ORDERED: traZODone HCL 50 MG TAB PO ONE (18:00)
[2021-08-21] MEDS ORDERED: ACETAMINOPHEN 500 MG TAB PO ONE (18:01)
--- NOTE | 2021-08-21 18:35 | Magnetic Resonance Report ---
MR brain wo/w con CLINICAL HISTORY: History of breast cancer status post chemoradiation therapy. Memory loss. Balance issues. Evaluate for metastatic disease. History of previous stroke COMPARISON STUDY: MRI brain without contrast on 08/19/2021 TECHNIQUE: Multiplanar multisequence images of the brain were performed before and after Gadavist, 7 mL of IV contrast. Diffusion weighted imaging and ADC mapping was also performed. FINDINGS: Extra-axial space: There is no evidence for a subdural hematoma, There are no extra-axial fluid minnie ections. Ventricles and cisterns: The ventricles are mildly dilated bilaterally. There is no evidence for mid line shift or mass effect. Parenchyma: On noncontrast images, there is no evidence for an acute hemorrhage or infarct. No acute diffusion abnormalities are noted on diffusion weighted imaging or ADC mapping. Old left occipital in farct is again seen. There is normal martinez-white differentiation. There is minimal bright signal seen on FLAIR weighted sequences within the centrum semiovale and periventricular white matter characteris tic of remote small vessel disease. The sulci and gyri appear normal without effacement. The midline structures are unremarkable. The posterior fossa structures appear normal. On postcontrast images, there is no evidence for enhancing mass lesion. Osseous structures: The paranasal sinuses are well aerated. The mastoid air cells are well aerated. Soft tissues: No focal soft tissue abnormalities are identified. IMPRESSION: No acute intracranial abnormalities. No evidence for enhancing metastatic disease or sig nificant interval change from the noncontrast study of 2 days ago. ACT 112: Negative or not required by law. Electronically signed by: Emil Vences M.D. 08/21/2021 6:33 PM
[2021-08-22] MEDS: clonazePAM 1 MG TAB PO PRN ×2 (02:43→20:01)
[2021-08-22] MEDS: ACETAMINOPHEN 325 MG TAB PO PRN ×2 (02:43→17:46)
[2021-08-22] MEDS ORDERED: HEPARIN 100 UNIT/ML 5ML FLUSH FLUSH PRN (03:14)
[2021-08-22 06:32] LABS: BUN Creatinine Ratio 11.1 (10-20); Creatinine Clr Calc Pharmacy 51.7 ml/min; Est GFR (African American) 71.7 ml/min; Est GFR (Non-African American) 61.8 ml/min; Magnesium 2.2 mg/dl (1.8-2.4); Potassium 4.1 mmol/L (3.5-5.1)
[2021-08-22 06:34] LABS: Phosphorus 3.8 mg/dl (2.5-4.9)
--- NOTE | 2021-08-22 08:18 | Hospitalist Progress Note ---
Date of Service August 22, 2021 Assessment & Plan (1) Bipolar affect, depressed: Plan: Continued her home medications on admission. Psychiatry was consulted and adjusting her medications, notably Cymbalta dose 60mBID seems too high - was changed to 60 mg daily and pt is also on klonapin which can make her more prone to falls. Also concern for poss. serotonin syndrome. One-on-one suicidal precautions initially When I saw the patient earlier on admission, she was already calm and able to answer most questions appropriately 08/22 - This morning, however patient very agitated, and psychiatry team called to bedside as well to evaluate and help with management She would not take any morning medications Currently patient again is calm and able to answer appropriately, cooperative. Questionable cerebrovascular accident on CAT scan of undetermined ag e.Confusion. MRI brain w/o contrast ordered and unremarkable. Echo ordered. -EF 55 to 60%. Mild to moderate aortic regurg. Trivial loculated anterior and right lateral pericardial effusion with mild organization. Grade 1 diastolic dysfunction. Started on aspirin on admission. Discussed with neurology, given a small vessel cerebrovascular disease on imaging, recommend antiplatelet therapy with aspirin 81 mg daily MRI brain w/ contrast obtained to rule out possible metastases, unremarkable Neurology consulted, appreciate their input. Obtain vit. B1, B12 levels, ammonia level TSH normal, B12 level normal, ammonia level normal, B1 pending EEG ordered and pending (2) Breast CA: Plan: Status post partial mastectomy and radiation per notes, continue to follow with local oncologist. (3) Substance abuse: Plan: History of cocaine abuse. Urine tox screen reveals amphetamines, MDMA (which may be a false positive related to other mood stabilizing drugs she takes), and marijuana. (4) DVT prophylaxis: Plan: Lovenox Full code Disposition- [place], DC after plan discussed w/ psychiatry (pt may possibly need inpt psych) Admission and Anticipated Discharge Date Admission Date: August 19, 2021 Subjective Patient seen in follow-up of agitation, depression, SI, confusion Reportedly this morning patient quite agitated, and would not take her medications Psychiatry team contacted and saw the patient Currently she is lying in bed, in no acute distress, and she is able and willing to talk to me Discussed her medications on her list She is concerned about some medications however even though after be went over the whole list she would repeat certain things Otherwise denies chest pain shortness of breath headache palpitations abdominal pain nausea vomiting Currently she reports feeling well and safe and understands her care team that includes me, psychiatry and neurology, and is willing to take medications Review of Systems Review of Systems: All systems reviewed & are unremarkable except as noted in Subjective Physical Exam Physical Exam: GENERAL: The patient is moderate build, not in acute distress. HEENT: NC/AT, EOMI, PERRL. Oral mucosa moist. NECK: No JVD. No neck masses. CARDIOVASCULAR: S1 and S2 heard. Regular rate and rhythm. No murmur, no gallop. RESPIRATORY: Normal AP diameter. No accessory muscle use. No wheezing, no crackles. ABDOMEN: Soft, bowel sounds present, nontender, no distention. NEURO/PSYCH: Awake and alert, able to answer some questions appropriately, but also somewhat confused (repeats certain things over). Speech fluent, no facial asymmetry. Power 5/5 in all extremities. No sensory loss noted. EXTREMITIES: No edema, no erythema. Results & Data Results & Data ([facility]) Vital Signs (Past 12 Hours) Vital Signs Temp Pulse Pulse Resp BP Pulse Ox 08/22/21 07:43 36.5 C 77 20 121/76 95 08/21/21 22:16 83 Laboratory Results 08/22/21 08/21/21 08/21/21 Range/Units 05:47 11:12 11:09 Sodium 137 (136-145) mmol/L Potassium 4.1 (3.5-5.1) mmol/L Chloride 105 (98-107) mmol/L Carbon Dioxide 27 (21-32) mmol/L Anion Gap 5.0 (3-11) BUN 11 (7-18) mg/dl Creatinine 0.98 (0.6-1.2) mg/dl Est Cr Clr Drug Dosing 51.7 ml/min Est GFR ( Amer) 71.7 ml/min Est GFR (Non-Af Amer) 61.8 ml/min BUN/Creatinine Ratio 11.1 (10-20) Glucose 99 (70-99) mg/dl Calcium 9.0 (8.5-10.1) mg/dl Phosphorus 3.8 (2.5-4.9) mg/dl Magnesium 2.2 (1.8-2.4) mg/dl Ammonia 17.0 (11-32) umol/L Vitamin B1 Pending Vitamin B12 (193-986) pg/ml TSH (0.300-4.500) uIu/ml 08/21/21 08/21/21 Range/Units 11:09 11:09 Sodium 140 (136-145) mmol/L Potassium 4.0 (3.5-5.1) mmol/L Chloride 106 (98-107) mmol/L Carbon Dioxide 30 (21-32) mmol/L Anion Gap 4.0 (3-11) BUN 13 (7-18) mg/dl Creatinine 0.99 (0.6-1.2) mg/dl Est Cr Clr Drug Dosing 51.2 ml/min Est GFR ( Amer) 70.8 ml/min Est GFR (Non-Af Amer) 61.1 ml/min BUN/Creatinine Ratio 12.8 (10-20) Glucose 114 H (70-99) mg/dl Calcium 9.0 (8.5-10.1) mg/dl Phosphorus 3.2 (2.5-4.9) mg/dl Magnesium 2.2 (1.8-2.4) mg/dl Ammonia (11-32) umol/L Vitamin B1 Vitamin B12 1303 H (193-986) pg/ml TSH 0.927 (0.300-4.500) uIu/ml Medications Administered Current Inpatient Medications Acetaminophen (Acetaminophen 325 Mg Tab) 650 mg PO Q4H PRN PRN Reason: Pain or Fever Stop: 09/19/21 04:26 Last Admin: 08/22/21 02:43 Dose: 650 mg Documented by: Artificial Tears (Artificial Tears) 1 drops OP TID [facility] Stop: 09/20/21 13:59 Last Admin: 08/21/21 19:51 Dose: Not Given Documented by: Ascorbic Acid (Ascorbic Acid 500 Mg Tab) 1,000 mg PO DAILY [facility] Stop: 09/19/21 08:59 Last Admin: 08/21/21 09:15 Dose: 1,000 mg Documented by: Aspirin (Aspirin 81 Mg Ectab) 81 mg PO QAM [facility] Stop: 09/19/21 08:59 Last Admin: 08/21/21 09:15 Dose: 81 mg Documented by: Calcium Carbonate (Calcium Carbonate 1250mg Tab) 1,250 mg PO DAILY [facility] Stop: 09/19/21 08:59 Last Admin: 08/21/21 09:15 Dose: 1,250 mg Documented by: Clonazepam (Clonazepam 1 Mg Tab) 1 mg PO Q12H PRN PRN Reason: Anxiety Stop: 09/19/21 14:31 Last Admin: 08/22/21 02:43 Dose: 1 mg Documented by: Cyanocobalamin (Cyanocobalamin (Vitamin B-12) 2,500 Mcg Tab.Subl) 2,500 mcg SL DAILY [facility] Stop: 09/19/21 08:59 Last Admin: 08/21/21 09:16 Dose: 2,500 mcg Documented by: Duloxetine HCl (Duloxetine Hcl 60 Mg Cap) 60 mg PO QAM [facility] Stop: 09/20/21 08:59 Last Admin: 08/21/21 09:16 Dose: 60 mg Documented by: Enoxaparin Sodium (Enoxaparin Inj 40 Mg/0.4 Ml Syr) 40 mg SQ Q24H [facility] Stop: 09/19/21 08:59 Last Admin: 08/21/21 09:16 Dose: 40 mg Documented by: Folic Acid (Folic Acid 400 Mcg Tab) 400 mcg PO DAILY [facility] Stop: 09/19/21 08:59 Last Admin: 08/21/21 09:17 Dose: 400 mcg Documented by: Heparin Sodium (Porcine) (Heparin 100 Unit/Ml 5ml Flush) 5 ml FLUSH PRN PRN PRN Reason: Flush Stop: 09/21/21 03:13 Magnesium Oxide (Magnesium Oxide 400 Mg Tab) 400 mg PO DAILY [facility] Stop: 09/19/21 08:59 Last Admin: 08/21/21 09:17 Dose: 400 mg Documented by: Miscellaneous (Vyvanse 40 Mg - Order Awaiting Action) 1 ea N/A QS [facility] Stop: 09/19/21 07:59 Last Admin: 08/22/21 00:57 Dose: Not Given Documented by: Miscellaneous (Belsomra 20 Mg - Order Awaiting Action) 1 ea N/A QS [facility] Stop: 09/19/21 07:59 Last Admin: 08/22/21 00:57 Dose: Not Given Documented by: Multivitamins (Multivitamin Tab) 1 tab PO DAILY [facility] Stop: 09/19/21 08:59 Last Admin: 08/21/21 09:17 Dose: 1 tab Documented by: Nitroglycerin (Nitroglycerin Sl 0.4 Mg/Tab Tab) 0.4 mg SL UD PRN PRN Reason: Chest Pain Stop: 09/19/21 04:26 Polyethylene Glycol (Polyethylene (Miralax) 17 Gm Pack) 17 gm PO DAILY PRN PRN Reason: Constipation Stop: 09/19/21 04:26 Thiamine HCl (Thiamine Hcl 100 Mg Tab) 100 mg PO QAM [facility] Stop: 09/20/21 15:44 Last Admin: 08/21/21 16:51 Dose: 100 mg Documented by: Vitamin D (Cholecalciferol 1,000 Units 25 Mcg Tab) 1,000 units PO DAILY [facility] Stop: 09/19/21 08:59 Last Admin: 08/21/21 09:16 Dose: 1,000 units Documented by: (1) Breast CA Breast location: unspecified site of breast Estrogen receptor status: unspecified Laterality: unspecified laterality Patient sex: female Qualified Code(s): C50.919 - Malignant neoplasm of unspecified site of unspecified female breast
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
[2021-08-22] MEDS ORDERED: OLANZapine 10 MG/2.1 ML SDV IM PRN (11:21)
[2021-08-22] MEDS: MAGNESIUM OXIDE 400 MG TAB PO SCH (12:28)
[2021-08-22] MEDS: FOLIC ACID 400 MCG TAB PO SCH (12:47)
[2021-08-22] MEDS: ASCORBIC ACID 500 MG TAB PO SCH (12:48)
[2021-08-22] MEDS: ASPIRIN 81 MG ECTAB PO SCH (12:48)
[2021-08-22] MEDS: MULTIVITAMIN TAB PO SCH (12:48)
[2021-08-22] MEDS: OLANZAPINE 2.5 MG TAB PO SCH ×2 (12:48→20:01)
[2021-08-22] MEDS: CALCIUM CARBONATE 1250MG TAB PO SCH (12:48)
[2021-08-22] MEDS: THIAMINE HCL 100 MG TAB PO SCH (12:48)
[2021-08-22] MEDS: CYANOCOBALAMIN (VITAMIN B-12) 2,500 MCG TAB.SUBL SL SCH (12:48)
[2021-08-22] MEDS: CHOLECALCIFEROL 1,000 UNITS 25 MCG TAB PO SCH (12:48)
[2021-08-22] MEDS: DULoxetine HCL 60 MG CAP PO SCH (12:48)
[2021-08-22] MEDS: ENOXAPARIN INJ 40 MG/0.4 ML SYR SQ SCH (12:54)
--- NOTE | 2021-08-22 13:02 | Psychiatric Progress Note ---
Date of Service August 22, 2021 Impression / Recommendations Impression 60 yo female with hx of possible bipolar disorder and recent treatment for breast cancer presents with AMS and significant lability with concern for significant polypharmacy prior to admission. Differential remains broad for AMS including agitated delirium with waxing and waning vs primary mood disorder vs substance-induced/substance-withdrawal. Delirium may have been triggered by extensive polypharmacy prior to admission with patient taking pain medications, benzodiazepines, OTC sleep medications and psychiatric medications including high dose Cymbalta, Wellbutrin, buspar, and Vyvanse. And UDS showed positive amph (likely from Vyanse), pos ectasy (likely from Wellbutrin) and pos THC. Acute flora or mixed episode of mood disorder is seeming less likely as she been managed on unopposed antidepressant medications and stimulants prior to admission and collateral from her mother significant for no prior history of acute flora or psychiatric hospitalization. Flora can sometimes occur late in age, post menopause though this is quite rare. Waxing and waning today most consistent with delirium-recommend starting olanzapine which will also help if this is flora. (1) Bipolar affect, depressed: (2) Altered mental status: -ok to continue Klonopin 1 mg Bid prn for now but caution that this could worsen delirium; if she starts to show any signs of potential benzo withdrawal (vitals stable currently) then could restart -Cymbalta 60 mg qd -start zyprexa 2.5 mg BID -If acute need for agitation would suggest Zyprexa 5 mg po or IM, do not exceed 20mg total daily dose of zyprexa per 24 hours -continue medical workup to rule out potential causes of delirium -no need for 1:1 given no SI Interval History Identifying Information 60 yo woman with a history of BPAD and breast cancer who was admitted medically after presenting with AMS and reports of erratic behavior since receiving chemotherapy and radiation treatment. Psychiatry was consulted for recommendations. Chief Complaint "I'm homeless now, my and kids won't bring me any clothes!". Review of Systems Notes Unable to see how much she slept from nursing notes, she endorses good sleep, unable to assess appetite or pain due to her irritability and tangential thought process Subjective Subjective Patient was seen & assessed and interval progress reviewed. She was irritable with nursing this morning and initially refused her medications. On our assess ment she presented with marked irritability and delusions stating that we were trying to poison her, frustration about her medications (but unable to tolerate any type of conversation about what she was getting and what medications we had recommended be stopped), made statements about believing her oncologist was trying to kill her and paranoia about her and medical treatments. Became tearful at one point discussing how challenging her treatment for breast cancer was but then quickly became irritable again. At one point was singing a children's song. Psych liason able to get collateral from patient's mother who reported no prior hx of similar episodes of behavior, no hx manic episodes, recent extensive polypharmacy use, and noting that patient has been calling family and friends with significant change in personality and being very irritable with everyone. Physical Exam Psychiatric Orientation: alert, oriented to person and oriented to place Apperance: + disheveled Eye Contact: good eye contact (intense) Motor Behavior: no abnormal motor movements Speech: + pressured speech and + loud speech Affect: + labile affect, + irritable affect and + angry affect Mood: + irritable mood and + angry mood Thought Process: + tangential thought process Thought Content: + paranoid, + delusions and + persecution Suicidal Thoughts: denies suicidal thoughts Homicidal Thoughts: denies homicidal thoughts Hallucinations: no auditory hallucinations and no visual hallucinations Cognition: remote memory grossly intact and language grossly intact; + recent memory not intact and + attention not intact Estimated Intelligence: consistent with education level Insight: + severely impaired insight Judgement: + impaired judgement Vital Signs (Past 24 Hours) Last Vital Signs Temp 36.5 C 08/22/21 07:43 Pulse 77 08/22/21 07:43 Resp 20 08/22/21 07:43 BP 121/76 08/22/21 07:43 Pulse Ox 95 08/22/21 07:43 Results & Data ([facility]) Laboratory Results Laboratory Results - last 24 hr 08/21/21 08/21/21 08/22/21 11:09 11:09 05:47 Sodium 137 Potassium 4.1 Chloride 105 Carbon Dioxide 27 Anion Gap 5.0 BUN 11 Creatinine 0.98 Est Cr Clr Drug Dosing 51.7 Est GFR ( Amer) 71.7 Est GFR (Non-Af Amer) 61.8 BUN/Creatinine Ratio 11.1 Glucose 99 Calcium 9.0 Phosphorus 3.8 Magnesium 2.2 Vitamin B12 1303 H TSH 0.927 Current Inpatient Medications Current Inpatient Medications: Current Inpatient Medications Acetaminophen (Acetaminophen 325 Mg Tab) 650 mg PO Q4H PRN PRN Reason: Pain or Fever Stop: 09/19/21 04:26 Last Admin: 08/22/21 02:43 Dose: 650 mg Documented by: Artificial Tears (Artificial Tears) 1 drops OP TID [facility] Stop: 09/20/21 13:59 Last Admin: 08/21/21 19:51 Dose: Not Given Documented by: Ascorbic Acid (Ascorbic Acid 500 Mg Tab) 1,000 mg PO DAILY [facility] Stop: 09/19/21 08:59 Last Admin: 08/21/21 09:15 Dose: 1,000 mg Documented by: Aspirin (Aspirin 81 Mg Ectab) 81 mg PO QAM [facility] Stop: 09/19/21 08:59 Last Admin: 08/21/21 09:15 Dose: 81 mg Documented by: Calcium Carbonate (Calcium Carbonate 1250mg Tab) 1,250 mg PO DAILY [facility] Stop: 09/19/21 08:59 Last Admin: 08/21/21 09:15 Dose: 1,250 mg Documented by: Clonazepam (Clonazepam 1 Mg Tab) 1 mg PO Q12H PRN PRN Reason: Anxiety Stop: 09/19/21 14:31 Last Admin: 08/22/21 02:43 Dose: 1 mg Documented by: Cyanocobalamin (Cyanocobalamin (Vitamin B-12) 2,500 Mcg Tab.Subl) 2,500 mcg SL DAILY [facility] Stop: 09/19/21 08:59 Last Admin: 08/21/21 09:16 Dose: 2,500 mcg Documented by: Duloxetine HCl (Duloxetine Hcl 60 Mg Cap) 60 mg PO QAM [facility] Stop: 09/20/21 08:59 Last Admin: 08/21/21 09:16 Dose: 60 mg Documented by: Enoxaparin Sodium (Enoxaparin Inj 40 Mg/0.4 Ml Syr) 40 mg SQ Q24H [facility] Stop: 09/19/21 08:59 Last Admin: 08/21/21 09:16 Dose: 40 mg Documented by: Folic Acid (Folic Acid 400 Mcg Tab) 400 mcg PO DAILY [facility] Stop: 09/19/21 08:59 Last Admin: 08/21/21 09:17 Dose: 400 mcg Documented by: Heparin Sodium (Porcine) (Heparin 100 Unit/Ml 5ml Flush) 5 ml FLUSH PRN PRN PRN Reason: Flush Stop: 09/21/21 03:13 Magnesium Oxide (Magnesium Oxide 400 Mg Tab) 400 mg PO DAILY [facility] Stop: 09/19/21 08:59 Last Admin: 08/21/21 09:17 Dose: 400 mg Documented by: Miscellaneous (Vyvanse 40 Mg - Order Awaiting Action) 1 ea N/A QS [facility] Stop: 09/19/21 07:59 Last Admin: 08/22/21 00:57 Dose: Not Given Documented by: Miscellaneous (Belsomra 20 Mg - Order Awaiting Action) 1 ea N/A QS [facility] Stop: 09/19/21 07:59 Last Admin: 08/22/21 00:57 Dose: Not Given Documented by: Multivitamins (Multivitamin Tab) 1 tab PO DAILY [facility] Stop: 09/19/21 08:59 Last Admin: 08/21/21 09:17 Dose: 1 tab Documented by: Nitroglycerin (Nitroglycerin Sl 0.4 Mg/Tab Tab) 0.4 mg SL UD PRN PRN Reason: Chest Pain Stop: 09/19/21 04:26 Olanzapine (Olanzapine 2.5 Mg Tab) 2.5 mg PO BID [facility] Stop: 09/21/21 11:14 Olanzapine (Olanzapine 10 Mg/2.1 Ml Sdv) 5 mg IM Q8H PRN PRN Reason: agitation Stop: 09/21/21 11:29 Polyethylene Glycol (Polyethylene (Miralax) 17 Gm Pack) 17 gm PO DAILY PRN PRN Reason: Constipation Stop: 09/19/21 04:26 Thiamine HCl (Thiamine Hcl 100 Mg Tab) 100 mg PO QAM [facility] Stop: 09/20/21 15:44 Last Admin: 08/21/21 16:51 Dose: 100 mg Documented by: Vitamin D (Cholecalciferol 1,000 Units 25 Mcg Tab) 1,000 units PO DAILY [facility] Stop: 09/19/21 08:59 Last Admin: 08/21/21 09:16 Dose: 1,000 units Documented by: (1) Altered mental status Altered mental status type: unspecified Qualified Code(s): R41.82 - Altered mental status, unspecified
[2021-08-22] MEDS: ARTIFICIAL TEARS OP SCH ×3 (13:36→20:01)
[2021-08-23] MEDS: ACETAMINOPHEN 325 MG TAB PO PRN ×4 (04:34→21:19)
[2021-08-23 07:18] LABS: BUN Creatinine Ratio 16.2 (10-20); Calcium 9.3 mg/dl (8.5-10.1); Creatinine Clr Calc Pharmacy 41.9 ml/min; Est GFR (African American) 55.5 ml/min; Est GFR (Non-African American) 47.9 ml/min; Magnesium 2.2 mg/dl (1.8-2.4); Phosphorus 4.2 mg/dl (2.5-4.9); Potassium 4.8 mmol/L (3.5-5.1)
[2021-08-23] MEDS: ARTIFICIAL TEARS OP SCH ×3 (08:25→20:16)
[2021-08-23] MEDS: ASCORBIC ACID 500 MG TAB PO SCH (08:27)
[2021-08-23] MEDS: ASPIRIN 81 MG ECTAB PO SCH (08:28)
[2021-08-23] MEDS: THIAMINE HCL 100 MG TAB PO SCH (08:28)
[2021-08-23] MEDS: CALCIUM CARBONATE 1250MG TAB PO SCH (08:28)
[2021-08-23] MEDS: OLANZAPINE 2.5 MG TAB PO SCH ×2 (08:29→20:17)
[2021-08-23] MEDS: DULoxetine HCL 60 MG CAP PO SCH (08:29)
[2021-08-23] MEDS: FOLIC ACID 400 MCG TAB PO SCH (08:29)
[2021-08-23] MEDS: ENOXAPARIN INJ 40 MG/0.4 ML SYR SQ SCH (08:29)
[2021-08-23] MEDS: CHOLECALCIFEROL 1,000 UNITS 25 MCG TAB PO SCH (08:29)
[2021-08-23] MEDS: CYANOCOBALAMIN (VITAMIN B-12) 2,500 MCG TAB.SUBL SL SCH (08:29)
[2021-08-23] MEDS: MULTIVITAMIN TAB PO SCH (08:29)
[2021-08-23] MEDS ORDERED: Nursing to Pharmacy Communication SCH (08:30)
[2021-08-23] MEDS: MAGNESIUM OXIDE 400 MG TAB PO SCH ×2 (08:30→20:16)
--- NOTE | 2021-08-23 13:06 | Hospitalist Progress Note ---
Date of Service August 23, 2021 Assessment & Plan (1) Bipolar affect, depressed: Plan: Continued her home medications on admission. Psychiatry was consulted and adjusting her medications, notably Cymbalta dose 60mBID seems too high - was changed to 60 mg daily and pt is also on klonapin which can make her more prone to falls. Also concern for poss. serotonin syndrome. One-on-one suicidal precautions initially Patient with intermittent agitation, specifically on 08/22 Medications adjusted Vyvanse and bupropion discontinued, Zyprexa started She feels some improvement with Zyprexa Confusion questionable cerebrovascular accident on CAT scan of undetermined age.Confusion. MRI brain w/o contrast ordered and unremarkable. Echo ordered. -EF 55 to 60%. Mild to moderate aortic regurg. Trivial loculated anterior and right lateral pericardial effusion with mild organization. Grade 1 diastolic dysfunction. Started on aspirin on admission. Discussed with neurology, given a small vessel cerebrovascular disease on imaging, recommend antiplatelet therapy with aspirin 81 mg daily MRI brain w/ contrast obtained to rule out possible metastases, unremarkable Neurology consulted, appreciate their input. -Feel confusion like related to polypharmacy and is now resolved TSH normal, B12 level normal, ammonia level normal, B1 pending EEG ordered and pending If EEG normal patient will be medically cleared and will recommend formal psychiatric admission if psych feels warranted (2) Breast CA: Plan: Status post partial mastectomy and radiation per notes, continue to follow with local oncologist (3) Substance abuse: Plan: History of cocaine abuse. Urine tox screen reveals amphetamines, MDMA (which may be a false positive related to other mood stabilizing drugs she takes), and marijuana (4) DVT prophylaxis: Plan: Lovenox Full code Disposition- med surg, pt medically stable, will need to await psych input to determine plan of care or possible psych admission for further medication adjustments Admission and Anticipated Discharge Date Admission Date: August 19, 2021 Supervising Physician Co-Signing Physician Notes Patient seen and examined by me, care coordinated with Brea Matthew PA-C, please refer to note above for further detail. Currently patient seen ambulating in hallway with PT, feeling happy and energetic. Says that she realizes that "she was causing trouble" yesterday. Now she says that she feels much better. Says she was talking to her as well and reconciled some issues. She is awake alert oriented answering questions appropriately. Lung sounds clear to auscultation w/o any wheezing rhonchi crackles. Heart sounds regular. Abdomen soft nontender nondistended. Patient moves all extremities, speech is fluent. Medications adjusted by psychiatry, following closely. Now on Zyprexa p.o. 2.5 twice daily. Elin Gay MD Subjective Patient was seen and examined in room [facility]. Follow-up bipolar disorder. Currently she is lying in bed in no acute distress. Discussed with IMER [place]. No acute events today. She states, "I know I was in trouble yesterday." She states she feels her issues are secondary to her medications. She has narrowed it down to 3 of her medications 1 being Vyvanse which was discontinued yesterday. She also discusses about Cymbalta being decreased and Wellbutrin discontinued. She noted improvement with Zyprexa, but did not last. She cu rrently does not feel any manic symptoms today. She denies fever, chills, sweats, lightheadedness, dizziness, chest pain, shortness with, cough, nausea, vomiting, abdominal pain. Review of Systems Review of Systems: All systems reviewed & are unremarkable except as noted in HPI & below Physical Exam Physical Exam: Gen: WD/WN, NAD, A&O x3 HEENT: Normocephalic, atraumatic, conjunctivae moist, sclerae anicteric, mucous membranes moist. Lung: Clear to Auscultation bilaterally, no wheezes/rales/rhonchi Heart: Regular rate, regular rhythm, no murmurs, rubs, or gallops Chest: Port in right anterior chest wall Abdomen: Soft, NT, ND +BS x 4 Extremities: No edema Skin: Warm, no rash, negative turgor. Results & Data Results & Data ([facility]) Vital Signs (Past 12 Hours) Vital Signs Temp Pulse Resp BP Pulse Ox 08/23/21 10:15 37.0 C 110 H 16 107/66 95 08/23/21 08:17 36.9 C 90 16 98/66 L 92 Laboratory Results [facility] 08/23/21 06:05 Sodium 142 Potassium 4.8 D Chloride 108 H Carbon Dioxide 26 BUN 20 H D Creatinine 1.21 H Glucose 89 Calcium 9.3 Medications Administered Current Inpatient Medications Acetaminophen (Acetaminophen 325 Mg Tab) 650 mg PO Q4H PRN PRN Reason: Pain or Fever Stop: 09/19/21 04:26 Last Admin: 08/23/21 09:39 Dose: 650 mg Documented by: Artificial Tears (Artificial Tears) 1 drops OP TID [place] Stop: 09/20/21 13:59 Last Admin: 08/23/21 08:25 Dose: 1 drops Documented by: Ascorbic Acid (Ascorbic Acid 500 Mg Tab) 1,000 mg PO DAILY [place] Stop: 09/19/21 08:59 Last Admin: 08/23/21 08:27 Dose: 1,000 mg Documented by: Aspirin (Aspirin 81 Mg Ectab) 81 mg PO QAM [facility] Stop: 09/19/21 08:59 Last Admin: 08/23/21 08:28 Dose: 81 mg Documented by: Calcium Carbonate (Calcium Carbonate 1250mg Tab) 1,250 mg PO DAILY [place] Stop: 09/19/21 08:59 Last Admin: 08/23/21 08:28 Dose: 1,250 mg Documented by: Clonazepam (Clonazepam 1 Mg Tab) 1 mg PO Q12H PRN PRN Reason: Anxiety Stop: 09/19/21 14:31 Last Admin: 08/22/21 20:01 Dose: 1 mg Documented by: Cyanocobalamin (Cyanocobalamin (Vitamin B-12) 2,500 Mcg Tab.Subl) 2,500 mcg SL DAILY [place] Stop: 09/19/21 08:59 Last Admin: 08/23/21 08:29 Dose: 2,500 mcg Documented by: Duloxetine HCl (Duloxetine Hcl 60 Mg Cap) 60 mg PO QAM [place] Stop: 09/20/21 08:59 Last Admin: 08/23/21 08:29 Dose: 60 mg Documented by: Enoxaparin Sodium (Enoxaparin Inj 40 Mg/0.4 Ml Syr) 40 mg SQ Q24H [place] Stop: 09/19/21 08:59 Last Admin: 08/23/21 08:29 Dose: 40 mg Documented by: Folic Acid (Folic Acid 400 Mcg Tab) 400 mcg PO DAILY [place] Stop: 09/19/21 08:59 Last Admin: 08/23/21 08:29 Dose: 400 mcg Documented by: Heparin Sodium (Porcine) (Heparin 100 Unit/Ml 5ml Flush) 5 ml FLUSH PRN PRN PRN Reason: Flush Stop: 09/21/21 03:13 Magnesium Oxide (Magnesium Oxide 400 Mg Tab) 400 mg PO HS [facility] Stop: 09/19/21 08:59 Miscellaneous (Vyvanse 40 Mg - Order Awaiting Action) 1 ea N/A QS [place] Stop: 09/19/21 07:59 Last Admin: 08/23/21 08:25 Dose: Not Given Documented by: Miscellaneous (Belsomra 20 Mg - Order Awaiting Action) 1 ea N/A QS [place] Stop: 09/19/21 07:59 Last Admin: 08/23/21 08:25 Dose: Not Given Documented by: Multivitamins (Multivitamin Tab) 1 tab PO DAILY [place] Stop: 09/19/21 08:59 Last Admin: 08/23/21 08:29 Dose: 1 tab Documented by: Nitroglycerin (Nitroglycerin Sl 0.4 Mg/Tab Tab) 0.4 mg SL UD PRN PRN Reason: Chest Pain Stop: 09/19/21 04:26 Olanzapine (Olanzapine 2.5 Mg Tab) 2.5 mg PO BID [place] Stop: 09/21/21 11:14 Last Admin: 08/23/21 08:29 Dose: 2.5 mg Documented by: Olanzapine (Olanzapine 10 Mg/2.1 Ml Sdv) 5 mg IM Q8H PRN PRN Reason: agitation Stop: 09/21/21 11:29 Polyethylene Glycol (Polyethylene (Miralax) 17 Gm Pack) 17 gm PO DAILY PRN PRN Reason: Constipation Stop: 09/19/21 04:26 Thiamine HCl (Thiamine Hcl 100 Mg Tab) 100 mg PO QAM [place] Stop: 09/20/21 15:44 Last Admin: 08/23/21 08:28 Dose: 100 mg Documented by: Vitamin D (Cholecalciferol 1,000 Units 25 Mcg Tab) 1,000 units PO DAILY [place] Stop: 09/19/21 08:59 Last Admin: 08/23/21 08:29 Dose: 1,000 units Documented by: (1) Breast CA Breast location: unspecified site of breast Estrogen receptor status: unspecified Laterality: unspecified laterality Patient sex: female Qualified Code(s): C50.919 - Malignant neoplasm of unspecified site of unspecified female breast
--- NOTE | 2021-08-23 14:00 | Electroencephalogram ---
EEG Procedure Note Date of Service August 23, 2021 Start / End Times Start Time: 1017 End Time: 1037 Referring Physician Radha Cervantes PA-C History Question encephalopathy/confusion Home Medication List Medication Instructions Recorded Confirmed Type DOTERRA ESSENTIAL 2 dose PO QAM #0 08/25/20 08/19/21 History ascorbic acid (vitamin C) 500 mg 1,000 mg PO DAILY cap 01/27/21 08/19/21 History capsule calcium carbonate 600 mg calcium 600 mg PO DAILY 01/27/21 08/19/21 History (1,500 mg) tablet cholecalciferol (vitamin D3) 25 25 mcg PO DAILY 01/27/21 08/19/21 History mcg (1,000 unit) capsule folic acid 400 mcg tablet 0.4 mg PO DAILY 01/27/21 08/19/21 History magnesium oxide 250 mg PO DAILY 01/27/21 08/19/21 History mecobalamin (vitamin B12) 5,000 2,500 mcg PO DAILY tab 01/27/21 08/19/21 History mcg disintegrating tablet suvorexant 20 mg tablet (Belsomra) 20 mg PO HS 02/22/21 08/19/21 History duloxetine 60 mg capsule,delayed 60 mg PO BID cap 08/12/21 08/19/21 History release (Cymbalta) bupropion HCl 300 mg 24 hr tablet, 300 mg PO QAM 08/19/21 08/19/21 History extended release clonazepam 1 mg tablet 1 - 2 mg PO Q6H PRN 08/19/21 08/19/21 History lisdexamfetamine 40 mg capsule 40 mg PO DAILY 08/19/21 08/19/21 History (Vyvanse) multivitamin 1 tab PO DAILY 08/19/21 08/19/21 History trazodone 50 mg tablet 50 - 100 mg PO HS 08/19/21 08/19/21 History Inpatient Medication List Acetaminophen (Acetaminophen 325 Mg Tab) 650 mg PO Q4H PRN PRN Reason: Pain or Fever Stop: 09/19/21 04:26 Last Admin: 08/23/21 09:39 Dose: 650 mg Documented by: [id number] Admin: 08/23/21 04:34 Dose: 650 mg Documented by: [id number] Admin: 08/22/21 17:46 Dose: 650 mg Documented by: [id number] Admin: 08/22/21 02:43 Dose: 650 mg Documented by: [id number] Admin: 08/21/21 22:42 Dose: 650 mg Documented by: [id number] Admin: 08/21/21 05:03 Dose: 650 mg Documented by: [id number] Artificial Tears (Artificial Tears) 1 drops OP TID [place] Stop: 09/20/21 13:59 Last Admin: 08/23/21 08:25 Dose: 1 drops Documented by: [id number] Admin: 08/22/21 20:01 Dose: 1 drops Documented by: [id number] Admin: 08/22/21 14:26 Dose: 1 drops Documented by: [id number] Admin: 08/22/21 13:36 Dose: 1 drops Documented by: [id number] Admin: 08/21/21 19:51 Dose: Not Given Documented by: [id number] Admin: 08/21/21 13:01 Dose: 1 drops Documented by: [id number] Ascorbic Acid (Ascorbic Acid 500 Mg Tab) 1,000 mg PO DAILY [place] Stop: 09/19/21 08:59 Last Admin: 08/23/21 08:27 Dose: 1,000 mg Documented by: [id number] Admin: 08/22/21 12:48 Dose: 1,000 mg Documented by: [id number] Admin: 08/21/21 09:15 Dose: 1,000 mg Documented by: [id number] Admin: 08/20/21 08:09 Dose: 1,000 mg Documented by: [id number] Aspirin (Aspirin 81 Mg Ectab) 81 mg PO QAM [place] Stop: 09/19/21 08:59 Last Admin: 08/23/21 08:28 Dose: 81 mg Documented by: [id number] Admin: 08/22/21 12:48 Dose: 81 mg Documented by: [id number] Admin: 08/21/21 09:15 Dose: 81 mg Documented by: [id number] Admin: 08/20/21 08:08 Dose: 81 mg Documented by: [id number] Calcium Carbonate (Calcium Carbonate 1250mg Tab) 1,250 mg PO DAILY [place] Stop: 09/19/21 08:59 Last Admin: 08/23/21 08:28 Dose: 1,250 mg Documented by: [id number] Admin: 08/22/21 12:48 Dose: 1,250 mg Documented by: [id number] Admin: 08/21/21 09:15 Dose: 1,250 mg Documented by: [id number] Admin: 08/20/21 08:10 Dose: 1,250 mg Documented by: [id number] Clonazepam (Clonazepam 1 Mg Tab) 1 mg PO Q12H PRN PRN Reason: Anxiety Stop: 09/19/21 14:31 Last Admin: 08/22/21 20:01 Dose: 1 mg Documented by: [id number] Admin: 08/22/21 02:43 Dose: 1 mg Documented by: [id number] Admin: 08/21/21 14:34 Dose: 1 mg Documented by: [id number] Admin: 08/20/21 15:46 Dose: 1 mg Documented by: [id number] Cyanocobalamin (Cyanocobalamin (Vitamin B-12) 2,500 Mcg Tab.Subl) 2,500 mcg SL DAILY [place] Stop: 09/19/21 08:59 Last Admin: 08/23/21 08:29 Dose: 2,500 mcg Documented by: [id number] Admin: 08/22/21 12:48 Dose: 2,500 mcg Documented by: [id number] Admin: 08/21/21 09:16 Dose: 2,500 mcg Documented by: [id number] Admin: 08/20/21 08:08 Dose: 2,500 mcg Documented by: [id number] Duloxetine HCl (Duloxetine Hcl 60 Mg Cap) 60 mg PO QAM [place] Stop: 09/20/21 08:59 Last Admin: 08/23/21 08:29 Dose: 60 mg Documented by: [id number] Admin: 08/22/21 12:48 Dose: 60 mg Documented by: [id number] Admin: 08/21/21 09:16 Dose: 60 mg Documented by: [id number] Enoxaparin Sodium (Enoxaparin Inj 40 Mg/0.4 Ml Syr) 40 mg SQ Q24H [place] Stop: 09/19/21 08:59 Last Admin: 08/23/21 08:29 Dose: 40 mg Documented by: [id number] Admin: 08/22/21 12:54 Dose: 40 mg Documented by: [id number] Admin: 08/21/21 09:16 Dose: 40 mg Documented by: [id number] Admin: 08/20/21 08:10 Dose: 40 mg Documented by: [id number] Folic Acid (Folic Acid 400 Mcg Tab) 400 mcg PO DAILY [place] Stop: 09/19/21 08:59 Last Admin: 08/23/21 08:29 Dose: 400 mcg Documented by: [id number] Admin: 08/22/21 12:47 Dose: 400 mcg Documented by: [id number] Admin: 08/21/21 09:17 Dose: 400 mcg Documented by: [id number] Admin: 08/20/21 08:09 Dose: 400 mcg Documented by: [id number] Miscellaneous (Vyvanse 40 Mg - Order Awaiting Action) 1 ea N/A QS [place] Stop: 09/19/21 07:59 Last Admin: 08/23/21 08:25 Dose: Not Given Documented by: [id number] Admin: 08/22/21 23:18 Dose: Not Given Documented by: [id number] Admin: 08/22/21 14:27 Dose: Not Given Documented by: [id number] Admin: 08/22/21 12:49 Dose: Not Given Documented by: [id number] Admin: 08/22/21 00:57 Dose: Not Given Documented by: [id number] Admin: 08/21/21 13:02 Dose: Not Given Documented by: [id number] Admin: 08/21/21 09:12 Dose: Not Given Documented by: [id number] Admin: 08/21/21 00:35 Dose: Not Given Documented by: [id number] Admin: 08/20/21 17:05 Dose: Not Given Documented by: [id number] Admin: 08/20/21 11:35 Dose: Not Given Documented by: [id number] Miscellaneous (Belsomra 20 Mg - Order Awaiting Action) 1 ea N/A QS [place] Stop: 09/19/21 07:59 Last Admin: 08/23/21 08:25 Dose: Not Given Documented by: [id number] Admin: 08/22/21 23:18 Dose: Not Given Documented by: [id number] Admin: 08/22/21 14:27 Dose: Not Given Documented by: [id number] Admin: 08/22/21 12:49 Dose: Not Given Documented by: [id number] Admin: 08/22/21 00:57 Dose: Not Given Documented by: [id number] Admin: 08/21/21 13:02 Dose: Not Given Documented by: [id number] Admin: 08/21/21 09:12 Dose: Not Given Documented by: [id number] Admin: 08/21/21 00:33 Dose: Not Given Documented by: [id number] Admin: 08/20/21 17:05 Dose: Not Given Documented by: [id number] Admin: 08/20/21 11:35 Dose: Not Given Documented by: [id number] Multivitamins (Multivitamin Tab) 1 tab PO DAILY [place] Stop: 09/19/21 08:59 Last Admin: 08/23/21 08:29 Dose: 1 tab Documented by: [id number] Admin: 08/22/21 12:48 Dose: 1 tab Documented by: [id number] Admin: 08/21/21 09:17 Dose: 1 tab Documented by: [id number] Admin: 08/20/21 08:10 Dose: 1 tab Documented by: [id number] Olanzapine (Olanzapine 2.5 Mg Tab) 2.5 mg PO BID [place] Stop: 09/21/21 11:14 Last Admin: 08/23/21 08:29 Dose: 2.5 mg Documented by: [id number] Admin: 08/22/21 20:01 Dose: 2.5 mg Documented by: [id number] Admin: 08/22/21 12:48 Dose: 2.5 mg Documented by: [id number] Thiamine HCl (Thiamine Hcl 100 Mg Tab) 100 mg PO QAM [place] Stop: 09/20/21 15:44 Last Admin: 08/23/21 08:28 Dose: 100 mg Documented by: [id number] Admin: 08/22/21 12:48 Dose: 100 mg Documented by: [id number] Admin: 08/21/21 16:51 Dose: 100 mg Documented by: [id number] Vitamin D (Cholecalciferol 1,000 Units 25 Mcg Tab) 1,000 units PO DAILY [place] Stop: 09/19/21 08:59 Last Admin: 08/23/21 08:29 Dose: 1,000 units Documented by: [id number] Admin: 08/22/21 12:48 Dose: 1,000 units Documented by: [id number] Admin: 08/21/21 09:16 Dose: 1,000 units Documented by: [id number] Admin: 08/20/21 08:10 Dose: 1,000 units Documented by: [id number] Discontinued Medications Acetaminophen (Acetaminophen 500 Mg Tab) 1,000 mg PO ONE ONE Stop: 08/21/21 18:02 Last Admin: 08/21/21 19:46 Dose: 1,000 mg Documented by: [id number] Bupropion HCl (Bupropion Xl 300 Mg Tabcr) 300 mg PO QAM [place] Stop: 09/19/21 08:59 Last Admin: 08/20/21 08:09 Dose: 300 mg Documented by: [id number] Clonazepam (Clonazepam 1 Mg Tab) 1 - 2 mg PO Q6H PRN PRN Reason: Anxiety Stop: 09/19/21 04:26 Last Admin: 08/20/21 05:29 Dose: 2 mg Documented by: [id number] Duloxetine HCl (Duloxetine Hcl 60 Mg Cap) 60 mg PO BID [place] Stop: 09/19/21 08:59 Last Admin: 08/20/21 08:08 Dose: 60 mg Documented by: [id number] Gadobutrol (Gadobutrol 30ml Vial) 7 ml IV ONCE ONE Stop: 08/21/21 17:04 Last Admin: 08/21/21 16:59 Dose: 7 ml Documented by: [id number] Magnesium Oxide (Magnesium Oxide 400 Mg Tab) 400 mg PO DAILY [place] Stop: 09/19/21 08:59 Last Admin: 08/23/21 08:30 Dose: Not Given Documented by: [id number] Admin: 08/22/21 12:28 Dose: Not Given Documented by: [id number] Admin: 08/21/21 09:17 Dose: 400 mg Documented by: [id number] Admin: 08/20/21 08:09 Dose: 400 mg Documented by: [id number] Trazodone HCl (Trazodone Hcl 50 Mg Tab) 50 mg PO HS PRN PRN Reason: Sleep Stop: 09/19/21 20:59 Last Admin: 08/20/21 19:21 Dose: 50 mg Documented by: [id number] Trazodone HCl (Trazodone Hcl 50 Mg Tab) 50 mg PO NOW ONE Stop: 08/21/21 18:01 Last Admin: 08/21/21 19:46 Dose: 50 mg Documented by: [id number] Description This is a 21 electrode EEG with a single channel dedicated to limited EKG. The electrodes were placed in accordance with the International 10-20 system The current EEG was performed as a bedside recording on a woman who by video analysis appears to be nearly continuously speaking but despite this there were long intervals of time during which the tracing was interpretable and was not impaired by head movement and jaw movement artifact Photic stimulation was performed Drowsiness light sleep not recorded Wakefulness there is evidence for normal-appearing background rhythm in the alpha range of up to 9 to 10 Hz maximal frequency of 30 V maximal amplitude. This maximum posterior head regions bilaterally symmetrical. mid to upper frequency modest voltage theta activity seen in symmetrical fashion primarily over the central regions. Beta activity seen bifrontally Photic stimulation provokes a minimal evidence No epileptiform patterns are seen Interpretation This EEG is normal during wakefulness without evidence for focal or generalized encephalopathy and without evidence for potentially epileptogenic patterns Clinical Correlation This is a normal EEG failing to reveal any evidence for a focal generalized encephalopathy potentially if any discharges or any other form of paroxysmal neurologic disturbance Yadiel Feliz MD
--- NOTE | 2021-08-23 15:26 | Psychiatric Progress Note ---
Date of Service August 23, 2021 Impression / Recommendations Impression 60 yo female with hx of possible bipolar disorder and recent treatment for breast cancer presents with AMS and significant lability with concern for significant polypharmacy prior to admission. Differential remains broad for AMS including agitated delirium with waxing and waning vs primary mood disorder vs substance-induced/substance-withdrawal. Delirium may have been triggered by extensive polypharmacy prior to admission with patient taking pain medications, benzodiazepines, OTC sleep medications and psychiatric medications including high dose Cymbalta, Wellbutrin, buspar, and Vyvanse. And UDS showed positive amph (likely from Vyanse), pos ectasy (likely from Wellbutrin) and pos THC. Acute flora or mixed episode of mood disorder is seeming less likely as she been managed on unopposed antidepressant medications and stimulants prior to admission and collateral from her mother significant for no prior history of acute flora or psychiatric hospitalization. Flora can sometimes occur late in age, post menopause though this is quite rare. 08/23/21-Showing improvement today which further suggest agitated delirium given waxing and waning presentation. Responded well to low dose olanzapine, will cont inue this and continue to re-evaluate. Medical workup so far has been reassuring for no acute neurologic conditions. Suspect polypharmacy led to delirium in setting of more fragile brain s/p chemotherapy, radiation, age and multiple medications including pain meds and benzodiazepines. (1) Bipolar affect, depressed: (2) Altered mental status: -holding home Klonopin 1 mg Bid prn given that this can worsen delirium -c/w zyprexa 2.5 mg BID -If acute need for agitation would suggest Zyprexa 5 mg po or IM, do not exceed 20mg total daily dose of zyprexa per 24 hours -continue medical workup to rule out potential causes of delirium -no need for 1:1 given no SI Interval History Identifying Information 60 yo woman with a history of BPAD and breast cancer who was admitted medically after presenting with AMS and reports of erratic behavior since receiving chemotherapy and radiation treatment. Psychiatry was consulted for recommendations. Chief Complaint "I feel good, I almost feel normal again". Review of Systems Notes Endorses good sleep and appetite, no pain Subjective Subjective Patient was seen & assessed and interval progress reviewed. Today she presents as calmer and more pleasant though remains somewhat labile. She reports she sl ept well and that she feels like "my thoughts aren't as fuzzy", "my brain is starting to feel normal again". She is taking her medications and finding the changes helpful. Discussed that we started olanzapine to help with suspected delirium and she is finding this helpful so far. Had a CAICEDO and some mild dizziness this morning that she reports resolved quickly. Continues to adamantly deny SI. Reviewed psych history with her and endorses periods of irritable "all my life" but denies any history of treatment with mood stabilizers and no history of psychiatric hospitalizations or legal involvement during periods of acutely irritable mood. Notes she cannot recall some of her memories from Monday but that she does recall getting frustrated with her family and making the statement of being homeless yesterday due to her frustration that she wanted to leave the hospital and her wouldn't bring her clothes or her wallet. Today states she recognizes that she needs to be in the hospital and is starting to feel better and is relieved about this. Physical Exam Psychiatric Orientation: alert and oriented x 3 Apperance: appropriately dressed and appropriately groomed Eye Contact: good eye contact Motor Behavior: no abnormal motor movements Speech: normal rate/rhythm/volume of speech Affect: + labile affect (tearful at times but mostly euthymic) Mood: no depressed mood and no anxious mood Thought Process: + circumstantial thought process Thought Content: reality based without delusions Suicidal Thoughts: denies suicidal thoughts Homicidal Thoughts: denies homicidal thoughts Hallucinations: no auditory hallucinations and no visual hallucinations Cognition: attention grossly intact and language grossly intact Insight: + fair insight Judgement: + fair judgement Vital Signs (Past 24 Hours) Last Vital Signs Temp 37.0 C 08/23/21 10:15 Pulse 110 H 08/23/21 10:15 Resp 16 08/23/21 10:15 BP 107/66 08/23/21 10:15 Pulse Ox 95 08/23/21 10:15 Results & Data ([facility]) Laboratory Results Laboratory Results - last 24 hr 08/23/21 06:05 Sodium 142 Potassium 4.8 D Chloride 108 H Carbon Dioxide 26 Anion Gap 8.0 BUN 20 H D Creatinine 1.21 H Est Cr Clr Drug Dosing 41.9 Est GFR ( Amer) 55.5 Est GFR (Non-Af Amer) 47.9 BUN/Creatinine Ratio 16.2 Glucose 89 Calcium 9.3 Phosphorus 4.2 Magnesium 2.2 Current Inpatient Medications Current Inpatient Medications: Current Inpatient Medications Acetaminophen (Acetaminophen 325 Mg Tab) 650 mg PO Q4H PRN PRN Reason: Pain or Fever Stop: 09/19/21 04:26 Last Admin: 08/23/21 09:39 Dose: 650 mg Documented by: Artificial Tears (Artificial Tears) 1 drops OP TID [facility] Stop: 09/20/21 13:59 Last Admin: 08/23/21 08:25 Dose: 1 drops Documented by: Ascorbic Acid (Ascorbic Acid 500 Mg Tab) 1,000 mg PO DAILY [facility] Stop: 09/19/21 08:59 Last Admin: 08/23/21 08:27 Dose: 1,000 mg Documented by: Aspirin (Aspirin 81 Mg Ectab) 81 mg PO QAM [facility] Stop: 09/19/21 08:59 Last Admin: 08/23/21 08:28 Dose: 81 mg Documented by: Calcium Carbonate (Calcium Carbonate 1250mg Tab) 1,250 mg PO DAILY [facility] Stop: 09/19/21 08:59 Last Admin: 08/23/21 08:28 Dose: 1,250 mg Documented by: Clonazepam (Clonazepam 1 Mg Tab) 1 mg PO Q12H PRN PRN Reason: Anxiety Stop: 09/19/21 14:31 Last Admin: 08/22/21 20:01 Dose: 1 mg Documented by: Cyanocobalamin (Cyanocobalamin (Vitamin B-12) 2,500 Mcg Tab.Subl) 2,500 mcg SL DAILY [facility] Stop: 09/19/21 08:59 Last Admin: 08/23/21 08:29 Dose: 2,500 mcg Documented by: Duloxetine HCl (Duloxetine Hcl 60 Mg Cap) 60 mg PO QAM [facility] Stop: 09/20/21 08:59 Last Admin: 08/23/21 08:29 Dose: 60 mg Documented by: Enoxaparin Sodium (Enoxaparin Inj 40 Mg/0.4 Ml Syr) 40 mg SQ Q24H [facility] Stop: 09/19/21 08:59 Last Admin: 08/23/21 08:29 Dose: 40 mg Documented by: Folic Acid (Folic Acid 400 Mcg Tab) 400 mcg PO DAILY [facility] Stop: 09/19/21 08:59 Last Admin: 08/23/21 08:29 Dose: 400 mcg Documented by: Heparin Sodium (Porcine) (Heparin 100 Unit/Ml 5ml Flush) 5 ml FLUSH PRN PRN PRN Reason: Flush Stop: 09/21/21 03:13 Magnesium Oxide (Magnesium Oxide 400 Mg Tab) 400 mg PO HS [facility] Stop: 09/19/21 08:59 Miscellaneous (Vyvanse 40 Mg - Order Awaiting Action) 1 ea N/A QS [facility] Stop: 09/19/21 07:59 Last Admin: 08/23/21 08:25 Dose: Not Given Documented by: Miscellaneous (Belsomra 20 Mg - Order Awaiting Action) 1 ea N/A QS [facility] Stop: 09/19/21 07:59 Last Admin: 08/23/21 08:25 Dose: Not Given Documented by: Multivitamins (Multivitamin Tab) 1 tab PO DAILY [facility] Stop: 09/19/21 08:59 Last Admin: 08/23/21 08:29 Dose: 1 tab Documented by: Nitroglycerin (Nitroglycerin Sl 0.4 Mg/Tab Tab) 0.4 mg SL UD PRN PRN Reason: Chest Pain Stop: 09/19/21 04:26 Olanzapine (Olanzapine 2.5 Mg Tab) 2.5 mg PO BID [facility] Stop: 09/21/21 11:14 Last Admin: 08/23/21 08:29 Dose: 2.5 mg Documented by: Olanzapine (Olanzapine 10 Mg/2.1 Ml Sdv) 5 mg IM Q8H PRN PRN Reason: agitation Stop: 09/21/21 11:29 Polyethylene Glycol (Polyethylene (Miralax) 17 Gm Pack) 17 gm PO DAILY PRN PRN Reason: Constipation Stop: 09/19/21 04:26 Thiamine HCl (Thiamine Hcl 100 Mg Tab) 100 mg PO QAM [facility] Stop: 09/20/21 15:44 Last Admin: 08/23/21 08:28 Dose: 100 mg Documented by: Vitamin D (Cholecalciferol 1,000 Units 25 Mcg Tab) 1,000 units PO DAILY [facility] Stop: 09/19/21 08:59 Last Admin: 08/23/21 08:29 Dose: 1,000 units Documented by: (1) Altered mental status Altered mental status type: unspecified Qualified Code(s): R41.82 - Altered mental status, unspecified
--- NOTE | 2021-08-24 07:49 | Communication Note ---
Date of Service: August 24, 2021 EEG was reviewed and following results. This is a normal EEG failing to reveal any evidence for a focal generalized encephalopathy potentially if any discharges or any other form of paroxysmal neurologic disturbance no evidence of seizure activity or focus. no further neurologist testing needed at this time. I have discussed above patient with Dr Radha Biggs, neurology
[2021-08-24] MEDS: ARTIFICIAL TEARS OP SCH ×3 (07:52→20:41)
[2021-08-24] MEDS: OLANZAPINE 2.5 MG TAB PO SCH (07:52)
[2021-08-24] MEDS: DULoxetine HCL 60 MG CAP PO SCH (07:52)
[2021-08-24] MEDS: MULTIVITAMIN TAB PO SCH (07:53)
[2021-08-24] MEDS: ASPIRIN 81 MG ECTAB PO SCH (07:53)
[2021-08-24] MEDS: CHOLECALCIFEROL 1,000 UNITS 25 MCG TAB PO SCH (07:53)
[2021-08-24] MEDS: THIAMINE HCL 100 MG TAB PO SCH (07:54)
[2021-08-24] MEDS: CALCIUM CARBONATE 1250MG TAB PO SCH (07:54)
[2021-08-24] MEDS: CYANOCOBALAMIN (VITAMIN B-12) 2,500 MCG TAB.SUBL SL SCH (07:55)
[2021-08-24] MEDS: ASCORBIC ACID 500 MG TAB PO SCH (07:55)
[2021-08-24] MEDS: FOLIC ACID 400 MCG TAB PO SCH (07:55)
[2021-08-24] MEDS: ENOXAPARIN INJ 40 MG/0.4 ML SYR SQ SCH (07:56)
[2021-08-24 08:01] LABS: Hematocrit (blood only) 40.7 % (37-47); Hemoglobin 13.7 g/dL (12.0-16.0); Mean Corpuscular Hemoglobin 32.6 pg (25-34); Mean Corpuscular Hgb Conc 33.7 g/dL (32-36); Mean Corpuscular Volume 96.9 fL (80-100); Mean Platelet Volume 10.2 fL (7.4-10.4); Platelet Count 288 K/uL (130-400); RDW Coefficient of Variation 14.9 % (11.5-14.5); RDW Standard Deviation 52.6 fL (36.4-46.3)
[2021-08-24 08:24] LABS: BUN Creatinine Ratio 21.1 (10-20); Calcium 8.8 mg/dl (8.5-10.1); Creatinine Clr Calc Pharmacy 39.6 ml/min; Est GFR (African American) 51.9 ml/min; Est GFR (Non-African American) 44.8 ml/min; Magnesium 2.2 mg/dl (1.8-2.4); Potassium 4.2 mmol/L (3.5-5.1)
[2021-08-24 08:25] LABS: Phosphorus 3.7 mg/dl (2.5-4.9)
[2021-08-24] MEDS: ACETAMINOPHEN 325 MG TAB PO PRN ×2 (09:28→17:59)
--- NOTE | 2021-08-24 11:27 | Psychiatric Progress Note ---
Date of Service August 24, 2021 Impression / Recommendations Impression 60 yo female with hx of possible bipolar disorder vs depression and recent treatment for breast cancer presents with AMS and significant lability with concern for significant polypharmacy prior to admission. Differential remains broad for AMS including agitated delirium with waxing and waning vs primary mood disorder vs substance-induced/substance-withdrawal. Delirium may have been triggered by extensive polypharmacy prior to admission with patient taking pain medications, benzodiazepines, OTC sleep medications and psychiatric medications including high dose Cymbalta, Wellbutrin, buspar, and Vyvanse. And UDS showed positive amph (likely from Vyanse), pos ectasy (likely from Wellbutrin) and pos THC. Acute flora or mixed episode of mood disorder is seeming less likely as she been managed on unopposed antidepressant medications and stimulants prior to admission and collateral from her mother and from patient significant for no prior history of acute flora or psychiatric hospitalization. Flora can sometimes occur late in age, post menopause, though this is quite rare and she is not showing the classical symptoms of flora other than irritability and excessive talkativeness. 08/24/21-Given ongoing intermittent agitation recommend increasing zyprexa which she consents to. Medical workup so far has been reassuring for no acute neurologic conditions. Suspect polypharmacy led to delirium in setting of more fragile brain s/p chemotherapy, radiation, age and multiple medications including pain meds and benzodiazepines. (1) Bipolar affect, depressed: (2) Altered mental status: -holding home Klonopin 1 mg Bid prn given that this can worsen delirium -increase zyprexa to 5 mg BID -If acute need for agitation would suggest Zyprexa 5 mg po or IM, do not exceed 20mg total daily dose of zyprexa per 24 hours ; monitor for QTc prolongation if more than one dose is given -continue medical workup to rule out potential causes of delirium -no need for 1:1 given no SI Interval History Identifying Information 60 yo woman with a history of depression and breast cancer who was admitted medically after presenting with AMS and reports of erratic behavior since receiving chemotherapy and radiation treatment. Psychiatry was consulted for recommendations. Chief Complaint "I wanted my medication at 4am and no one would give it to me". Review of Systems Notes Slept until 4am. Good appetite. Subjective Subjective Patient was seen & assessed and interval progress reviewed. Today she became agitated at about 4am demanding her morning medications and then required zyprexa 5 mg (unclear if this was IM or one time po) due to worsening agitation. Later this morning she presents as calmer but continues to endorse feeling like her brain is "foggy". Agrees to take the medication and consents to trying a higher dose of zyprexa to treat suspected delirium. Continues to talk a lot but speech is not rapid nor pressured, she is interruptible, there is no grandiosity or hyperreligious themes or overt paranoia. Remains irritable. Asking appropriate questions about reduction in dose of Cymbalta and her desire to go home but understanding that she needs more help given that she continues to not feel like herself. Physical Exam Psychiatric Orientation: alert, oriented to person, oriented to place and oriented to time Apperance: appropriately dressed and appropriately groomed Eye Contact: good eye contact Motor Behavior: no abnormal motor movements Speech: normal rate/rhythm/volume of speech Affect: + labile affect and + irritable affect Mood: + irritable mood Thought Process: + circumstantial thought process Thought Content: reality based without delusions Suicidal Thoughts: denies suicidal thoughts Homicidal Thoughts: denies homicidal thoughts Hallucinations: no auditory hallucinations and no visual hallucinations Cognition: recent memory grossly intact, remote memory grossly intact and attention grossly intact Insight: + impaired insight Judgement: + impaired judgement Vital Signs (Past 24 Hours) Last Vital Signs Temp 36.3 C L 08/24/21 07:26 Pulse 115 H 08/24/21 07:26 Resp 16 08/24/21 07:26 BP 134/83 08/24/21 07:26 Pulse Ox 95 08/24/21 07:26 Results & Data ([facility]) Laboratory Results Laboratory Results - last 24 hr 08/24/21 08/24/21 07:31 07:31 WBC 4.50 L RBC 4.20 Hgb 13.7 Hct 40.7 MCV 96.9 MCH 32.6 MCHC 33.7 RDW Std Deviation 52.6 H RDW Coeff of Lore 14.9 H Plt Count 288 MPV 10.2 Sodium 141 Potassium 4.2 Chloride 108 H Carbon Dioxide 23 Anion Gap 10.0 BUN 27 H Creatinine 1.28 H Est Cr Clr Drug Dosing 39.6 Est GFR ( Amer) 51.9 Est GFR (Non-Af Amer) 44.8 BUN/Creatinine Ratio 21.1 H Glucose 119 H Calcium 8.8 Phosphorus 3.7 Magnesium 2.2 Current Inpatient Medications Current Inpatient Medications: Current Inpatient Medications Acetaminophen (Acetaminophen 325 Mg Tab) 650 mg PO Q4H PRN PRN Reason: Pain or Fever Stop: 09/19/21 04:26 Last Admin: 08/24/21 09:28 Dose: 650 mg Documented by: Artificial Tears (Artificial Tears) 1 drops OP TID [facility] Stop: 09/20/21 13:59 Last Admin: 08/24/21 07:52 Dose: 1 drops Documented by: Ascorbic Acid (Ascorbic Acid 500 Mg Tab) 1,000 mg PO DAILY [facility] Stop: 09/19/21 08:59 Last Admin: 08/24/21 07:55 Dose: 1,000 mg Documented by: Aspirin (Aspirin 81 Mg Ectab) 81 mg PO QAM [facility] Stop: 09/19/21 08:59 Last Admin: 08/24/21 07:53 Dose: 81 mg Documented by: Calcium Carbonate (Calcium Carbonate 1250mg Tab) 1,250 mg PO DAILY [facility] Stop: 09/19/21 08:59 Last Admin: 08/24/21 07:54 Dose: 1,250 mg Documented by: Cyanocobalamin (Cyanocobalamin (Vitamin B-12) 2,500 Mcg Tab.Subl) 2,500 mcg SL DAILY [facility] Stop: 09/19/21 08:59 Last Admin: 08/24/21 07:55 Dose: 2,500 mcg Documented by: Duloxetine HCl (Duloxetine Hcl 60 Mg Cap) 60 mg PO QAM [facility] Stop: 09/20/21 08:59 Last Admin: 08/24/21 07:52 Dose: 60 mg Documented by: Enoxaparin Sodium (Enoxaparin Inj 40 Mg/0.4 Ml Syr) 40 mg SQ Q24H [facility] Stop: 09/19/21 08:59 Last Admin: 08/24/21 07:56 Dose: 40 mg Documented by: Folic Acid (Folic Acid 400 Mcg Tab) 400 mcg PO DAILY [facility] Stop: 09/19/21 08:59 Last Admin: 08/24/21 07:55 Dose: 400 mcg Documented by: Heparin Sodium (Porcine) (Heparin 100 Unit/Ml 5ml Flush) 5 ml FLUSH PRN PRN PRN Reason: Flush Stop: 09/21/21 03:13 Magnesium Oxide (Magnesium Oxide 400 Mg Tab) 400 mg PO HS [facility] Stop: 09/19/21 08:59 Last Admin: 08/23/21 20:16 Dose: 400 mg Documented by: Miscellaneous (Vyvanse 40 Mg - Order Awaiting Action) 1 ea N/A QS [facility] Stop: 09/19/21 07:59 Last Admin: 08/24/21 07:52 Dose: Not Given Documented by: Miscellaneous (Belsomra 20 Mg - Order Awaiting Action) 1 ea N/A QS [facility] Stop: 09/19/21 07:59 Last Admin: 08/24/21 07:51 Dose: Not Given Documented by: Multivitamins (Multivitamin Tab) 1 tab PO DAILY [facility] Stop: 09/19/21 08:59 Last Admin: 08/24/21 07:53 Dose: 1 tab Documented by: Nitroglycerin (Nitroglycerin Sl 0.4 Mg/Tab Tab) 0.4 mg SL UD PRN PRN Reason: Chest Pain Stop: 09/19/21 04:26 Olanzapine (Olanzapine 2.5 Mg Tab) 2.5 mg PO BID [facility] Stop: 09/21/21 11:14 Last Admin: 08/24/21 07:52 Dose: 2.5 mg Documented by: Olanzapine (Olanzapine 10 Mg/2.1 Ml Sdv) 5 mg IM Q8H PRN PRN Reason: agitation Stop: 09/21/21 11:29 Last Admin: 08/24/21 09:21 Dose: 5 mg Documented by: Polyethylene Glycol (Polyethylene (Miralax) 17 Gm Pack) 17 gm PO DAILY PRN PRN Reason: Constipation Stop: 09/19/21 04:26 Thiamine HCl (Thiamine Hcl 100 Mg Tab) 100 mg PO QAM [facility] Stop: 09/20/21 15:44 Last Admin: 08/24/21 07:54 Dose: 100 mg Documented by: Vitamin D (Cholecalciferol 1,000 Units 25 Mcg Tab) 1,000 units PO DAILY [facility] Stop: 09/19/21 08:59 Last Admin: 08/24/21 07:53 Dose: 1,000 units Documented by: (1) Altered mental status Altered mental status type: unspecified Qualified Code(s): R41.82 - Altered mental status, unspecified
--- NOTE | 2021-08-24 14:15 | Hospitalist Progress Note ---
Date of Service August 24, 2021 Assessment & Plan (1) Bipolar affect, depressed: Plan: Continued her home medications on admission. Psychiatry was consulted and adjusting her medications, notably Cymbalta dose 60mBID seems too high - was changed to 60 mg daily and pt is also on klonapin which can make her more prone to falls. Also concern for poss. serotonin syndrome. One-on-one suicidal precautions initially Patient with intermittent agitation, specifically on 08/22 Medications adjusted Vyvanse and bupropion discontinued, Zyprexa started She feels some improvement with Zyprexa Confusion questionable cerebrovascular accident on CAT scan of undetermined age .Confusion. MRI brain w/o contrast ordered and unremarkable. 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 -EF 55 to 60%. Mild to moderate aortic regurg. Trivial loculated anterior and right lateral pericardial effusion with mild organization. Grade 1 diastolic dysfunction. Started on aspirin on admission. Discussed with neurology, given a small vessel cerebrovascular disease on imaging, recommend antiplatelet therapy with aspirin 81 mg daily MRI brain w/ contrast obtained to rule out possible metastases, unremarkable Neurology consulted, appreciate their input. 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 UDS showed positive amphetemines likely secondary to Vyvanse, positive ecstasy likely from a wellbutrin and positive THC. Psych feels acute robby less likely and feels likely related to polysubstance use in setting of more fragile brain status post chemotherapy and radiation Recommend increasing zyprexa to 5mg twice daily with prn 5mg IM zyprexa for acute agitation with max dose of 20mg daily will need to obtain ecg to monitor qtc (2) Breast CA: Plan: Status post partial mastectomy and radiation per notes, continue to follow with local oncologist (3) Substance abuse: Plan: History of cocaine abuse. Urine tox screen reveals amphetamines, MDMA (which may be a false positive related to other mood stabilizing drugs she takes), and marijuana (4) DVT prophylaxis: Plan: Lovenox Full code Disposition- med surg, pt with waxing and waning agitation, not currently stable for d/c, will need to reassess with increased zyprexa Admission and Anticipated Discharge Date Admission Date: August 19, 2021 Supervising Physician Co-Signing Physician Notes Patient seen and examined by me, care coordinated with Brea Matthew PA-C, please refer to note above for further detail. This morning patient agitated, says that she was asking for medication at 4 AM and nobody would give it to her. Currently she is lying in bed, in no acute distress, she is awake alert oriented answer questions appropriately. She now realizes that she could have asked for medication differently. Psychiatry following closely, increase Zyprexa to 5 mg twice a day. Pt is awake alert oriented answering questions appropriately. Lung sounds clear to auscultation w/o any wheezing rhonchi crackles. Heart sounds regular. Abdomen soft nontender nondistended. Patient moves all extremities, speech is fluent. EEG obtained and negative. Medically cleared. Per psychiatry, concern for delirium, and no inpatient psychiatry warranted at this time, do not feel this is robby. Continue to follow closely, and monitor after readjusting her medications. Elin Gay MD Subjective Patient was seen and examined in room 385-2. Follow-up bipolar disorder. Pt is agitated this morning because at 4 a.m. nurses did not give her, "Klonopin." "If they just would of given me klonipin at 4 a.m. this wouldn't happen. I told them I was going to flip out and here I am." She feels she is the guinea pig and that she has good insurance so we are just using it to our advantage. She denies any f/c/s, chest pain, sob, n/v/d. She didn't eat breakfast this morning because, "I didn't feel like it." Review of Systems Review of Systems: All systems reviewed & are unremarkable except as noted in HPI & below Physical Exam Physical Exam: Gen: WD/WN, NAD, A&O x3, agitated, lack of eye contact HEENT: Normocephalic, atraumatic, conjunctivae moist, sclerae anicteric, mucous membranes moist. Lung: Clear to Auscultation bilaterally, no wheezes/rales/rhonchi Heart: Regular rate, regular rhythm, no murmurs, rubs, or gallops Chest: Port in right anterior chest wall, no erythema Abdomen: Soft, NT, ND +BS x 4 Extremities: No edema Skin: Warm, no rash, negative turgor. Results & Data Results & Data ([facility]) Vital Signs (Past 12 Hours) Vital Signs Temp Pulse Resp BP Pulse Ox 08/24/21 07:26 36.3 C L 115 H 16 134/83 95 Laboratory Results Short CBC 08/24/21 Range/Units 07:31 WBC 4.50 L (4.8-10.8) K/uL Hgb 13.7 (12.0-16.0) g/dL Hct 40.7 (37-47) % Plt Count 288 (130-400) K/uL BMP 08/24/21 07:31 Sodium 141 Potassium 4.2 Chloride 108 H Carbon Dioxide 23 BUN 27 H Creatinine 1.28 H Glucose 119 H Calcium 8.8 Medications Administered Current Inpatient Medications Acetaminophen (Acetaminophen 325 Mg Tab) 650 mg PO Q4H PRN PRN Reason: Pain or Fever Stop: 09/19/21 04:26 Last Admin: 08/24/21 09:28 Dose: 650 mg Documented by: Artificial Tears (Artificial Tears) 1 drops OP TID [place] Stop: 09/20/21 13:59 Last Admin: 08/24/21 07:52 Dose: 1 drops Documented by: Ascorbic Acid (Ascorbic Acid 500 Mg Tab) 1,000 mg PO DAILY [place] Stop: 09/19/21 08:59 Last Admin: 08/24/21 07:55 Dose: 1,000 mg Documented by: Aspirin (Aspirin 81 Mg Ectab) 81 mg PO QAM [place] Stop: 09/19/21 08:59 Last Admin: 08/24/21 07:53 Dose: 81 mg Documented by: Calcium Carbonate (Calcium Carbonate 1250mg Tab) 1,250 mg PO DAILY [place] Stop: 09/19/21 08:59 Last Admin: 08/24/21 07:54 Dose: 1,250 mg Documented by: Cyanocobalamin (Cyanocobalamin (Vitamin B-12) 2,500 Mcg Tab.Subl) 2,500 mcg SL DAILY [place] Stop: 09/19/21 08:59 Last Admin: 08/24/21 07:55 Dose: 2,500 mcg Documented by: Duloxetine HCl (Duloxetine Hcl 60 Mg Cap) 60 mg PO QAM [facility] Stop: 09/20/21 08:59 Last Admin: 08/24/21 07:52 Dose: 60 mg Documented by: Enoxaparin Sodium (Enoxaparin Inj 40 Mg/0.4 Ml Syr) 40 mg SQ Q24H [place] Stop: 09/19/21 08:59 Last Admin: 08/24/21 07:56 Dose: 40 mg Documented by: Folic Acid (Folic Acid 400 Mcg Tab) 400 mcg PO DAILY [place] Stop: 09/19/21 08:59 Last Admin: 08/24/21 07:55 Dose: 400 mcg Documented by: Heparin Sodium (Porcine) (Heparin 100 Unit/Ml 5ml Flush) 5 ml FLUSH PRN PRN PRN Reason: Flush Stop: 09/21/21 03:13 Magnesium Oxide (Magnesium Oxide 400 Mg Tab) 400 mg PO HS [place] Stop: 09/19/21 08:59 Last Admin: 08/23/21 20:16 Dose: 400 mg Documented by: Miscellaneous (Vyvanse 40 Mg - Order Awaiting Action) 1 ea N/A QS [place] Stop: 09/19/21 07:59 Last Admin: 08/24/21 07:52 Dose: Not Given Documented by: Miscellaneous (Belsomra 20 Mg - Order Awaiting Action) 1 ea N/A QS [place] Stop: 09/19/21 07:59 Last Admin: 08/24/21 07:51 Dose: Not Given Documented by: Multivitamins (Multivitamin Tab) 1 tab PO DAILY [place] Stop: 09/19/21 08:59 Last Admin: 08/24/21 07:53 Dose: 1 tab Documented by: Nitroglycerin (Nitroglycerin Sl 0.4 Mg/Tab Tab) 0.4 mg SL UD PRN PRN Reason: Chest Pain Stop: 09/19/21 04:26 Olanzapine (Olanzapine 2.5 Mg Tab) 2.5 mg PO BID [place] Stop: 09/21/21 11:14 Last Admin: 08/24/21 07:52 Dose: 2.5 mg Documented by: Olanzapine (Olanzapine 10 Mg/2.1 Ml Sdv) 5 mg IM Q8H PRN PRN Reason: agitation Stop: 09/21/21 11:29 Last Admin: 08/24/21 09:21 Dose: 5 mg Documented by: Polyethylene Glycol (Polyethylene (Miralax) 17 Gm Pack) 17 gm PO DAILY PRN PRN Reason: Constipation Stop: 09/19/21 04:26 Thiamine HCl (Thiamine Hcl 100 Mg Tab) 100 mg PO QAM [place] Stop: 09/20/21 15:44 Last Admin: 08/24/21 07:54 Dose: 100 mg Documented by: Vitamin D (Cholecalciferol 1,000 Units 25 Mcg Tab) 1,000 units PO DAILY [place] Stop: 09/19/21 08:59 Last Admin: 08/24/21 07:53 Dose: 1,000 units Documented by: (1) Breast CA Breast location: unspecified site of breast Estrogen receptor status: unspecified Laterality: unspecified laterality Patient sex: female Qualified Code(s): C50.919 - Malignant neoplasm of unspecified site of unspecified female breast
[2021-08-24] MEDS ORDERED: OLANZapine 5 MG TABLET PO PRN (16:33)
[2021-08-24] MEDS ORDERED: SODIUM CHLORIDE 0.9% 500 ML IV SCH (16:45)
[2021-08-24] MEDS: MAGNESIUM OXIDE 400 MG TAB PO SCH (20:39)
[2021-08-24] MEDS: OLANZapine 5 MG TABLET PO SCH (21:27)
[2021-08-25 07:43] LABS: BUN Creatinine Ratio 18.9 (10-20); Calcium 9.1 mg/dl (8.5-10.1); Creatinine Clr Calc Pharmacy 51.7 ml/min; Est GFR (African American) 71.7 ml/min; Est GFR (Non-African American) 61.8 ml/min; Magnesium 2.3 mg/dl (1.8-2.4); Phosphorus 3.1 mg/dl (2.5-4.9); Potassium 4.4 mmol/L (3.5-5.1)
--- NOTE | 2021-08-25 08:21 | Electrocardiogram Report ---
Test Reason : Blood Pressure : / mmHG Vent. 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
[2021-08-25 08:31] LABS: Amphetamine Urine, Confirm 652 ng/mL (<250); MDA negative; MDEA negative; MDMA (Ecstasy) Urine, Confirm negative; Marijuana Quant, GCMS Urine 527 ng/mL (<5); Methamphetamine, Ur Confirm NEGATIVE ng/mL (<250)
[2021-08-25] MEDS: ASCORBIC ACID 500 MG TAB PO SCH (09:05)
[2021-08-25] MEDS: ASPIRIN 81 MG ECTAB PO SCH (09:05)
[2021-08-25] MEDS: CALCIUM CARBONATE 1250MG TAB PO SCH (09:06)
[2021-08-25] MEDS: CYANOCOBALAMIN (VITAMIN B-12) 2,500 MCG TAB.SUBL SL SCH (09:06)
[2021-08-25] MEDS: CHOLECALCIFEROL 1,000 UNITS 25 MCG TAB PO SCH (09:07)
[2021-08-25] MEDS: ARTIFICIAL TEARS OP SCH ×3 (09:10→20:09)
[2021-08-25] MEDS: DULoxetine HCL 60 MG CAP PO SCH (09:11)
[2021-08-25] MEDS: FOLIC ACID 400 MCG TAB PO SCH (09:12)
[2021-08-25] MEDS: MULTIVITAMIN TAB PO SCH (09:12)
[2021-08-25] MEDS: OLANZapine 5 MG TABLET PO SCH ×2 (09:13→20:08)
[2021-08-25] MEDS: THIAMINE HCL 100 MG TAB PO SCH (09:13)
[2021-08-25] MEDS: ENOXAPARIN INJ 40 MG/0.4 ML SYR SQ SCH (11:23)
--- NOTE | 2021-08-25 12:27 | Psychiatric Progress Note ---
Date of Service August 25, 2021 Impression / Recommendations Impression 60 yo female with hx of possible bipolar disorder vs depression and recent treatment for breast cancer presents with AMS and significant lability with concern for significant polypharmacy prior to admission. Differential remains broad for AMS including agitated delirium with waxing and waning vs primary mood disorder vs substance-induced/substance-withdrawal. Delirium may have been triggered by extensive polypharmacy prior to admission with patient taking pain medications, benzodiazepines, OTC sleep medications and psychiatric medications including high dose Cymbalta, Wellbutrin, buspar, and Vyvanse. And UDS showed positive amph (likely from Vyanse), pos ectasy (likely from Wellbutrin) and pos THC. Acute flora or mixed episode of mood disorder is seeming less likely as she been managed on unopposed antidepressant medications and stimulants prior to admission and collateral from her mother and from patient significant for no prior history of acute flora or psychiatric hospitalization. Flora can sometimes occur late in age, post menopause, though this is quite rare and she is not showing the classical symptoms of flora other than irritability and excessive talkativeness. 08/25/21-Ongoing improvement today. Some orthostatic hypotension/lightheadedness with zyprexa. Will continue to monitor, if persists can reduce morning dose. (1) Bipolar affect, depressed: (2) Altered mental status: -zyprexa 5 mg BID, if ligtheadedness persists can change to 2.5 mg qAM & 5 mg qHS -psych liason to attempt to set up outpatient therapist for follow-up -discontinued Klonopin -If acute need for agitation would suggest Zyprexa 5 mg po or IM, do not exceed 20mg total daily dose of zyprexa per 24 hours ; monitor for QTc prolongation if more than one dose is given -continue medical workup to rule out potential causes of delirium -no need for 1:1 given no SI Interval History Identifying Information 60 yo woman with a history of depression and breast cancer who was admitted medically after presenting with AMS and reports of erratic behavior since receiving chemotherapy and radiation treatment. Psychiatry was consulted for recommendations. Chief Complaint "I feel better today". Review of Systems Notes Reports poor sleep, good appetite Subjective Subjective Patient was seen & assessed and interval progress reviewed. She states she slept poorly last night but endorses significant fatigue and plans to take a nap this morning. Fully oriented today and no longer expressing any irritability toward her . She notices some lightheadedness for about 30-45min in the morning after taking the zyprexa but finds this manageable, she just lies down and then it resolves. She continues to find the zyprexa helpful for "brain fogginess" and feels like "you're finally seeing the person I am, I promise I'm not usually like how I've been". She's agreeable to therapy referral. Discussed that plan is for zyprexa to be a short-term medication to treat delirium and to be discontinued in 1-2 months. Also re-discussed changes to her medication of only taking Cymbalta 60 mg qd. Physical Exam Psychiatric Orientation: alert and oriented x 3 Apperance: appropriately dressed and appropriately groomed Eye Contact: good eye contact Motor Behavior: no abnormal motor movements Speech: normal rate/rhythm/volume of speech Affect: euthymic affect Mood: no depressed mood, no anxious mood and no irritable mood Thought Process: goal directed thought process Thought Content: reality based without delusions Suicidal Thoughts: denies suicidal thoughts Homicidal Thoughts: denies homicidal thoughts Hallucinations: no auditory hallucinations and no visual hallucinations Cognition: attention grossly intact and language grossly intact Estimated Intelligence: consistent with education level Insight: + fair insight Judgement: + fair judgement Vital Signs (Past 24 Hours) Last Vital Signs Temp 37.0 C 08/25/21 07:21 Pulse 85 08/25/21 07:21 Resp 16 08/25/21 07:21 BP 116/70 08/25/21 07:21 Pulse Ox 95 08/25/21 07:21 Results & Data ([facility]) Laboratory Results Laboratory Results - last 24 hr 08/21/21 08/25/21 01:35 06:37 Sodium 140 Potassium 4.4 Chloride 109 H Carbon Dioxide 26 Anion Gap 5.0 BUN 19 H Creatinine 0.98 D Est Cr Clr Drug Dosing 51.7 Est GFR ( Amer) 71.7 Est GFR (Non-Af Amer) 61.8 BUN/Creatinine Ratio 18.9 Glucose 88 Calcium 9.1 Phosphorus 3.1 Magnesium 2.3 U Amphetamines Confirm 652 H U Methamphetamin Confrm NEGATIVE Urine MDEA negative MDMA negative Urine MDMA negative U Marijuana THC Carboxy 527 H Drug Screen Comment SEE NOTE Current Inpatient Medications Current Inpatient Medications: Current Inpatient Medications Acetaminophen (Acetaminophen 325 Mg Tab) 650 mg PO Q4H PRN PRN Reason: Pain or Fever Stop: 09/19/21 04:26 Last Admin: 08/24/21 17:59 Dose: 650 mg Documented by: Artificial Tears (Artificial Tears) 1 drops OP TID [place] Stop: 09/20/21 13:59 Last Admin: 08/25/21 09:10 Dose: 1 drops Documented by: Ascorbic Acid (Ascorbic Acid 500 Mg Tab) 1,000 mg PO DAILY [place] Stop: 09/19/21 08:59 Last Admin: 08/25/21 09:05 Dose: 1,000 mg Documented by: Aspirin (Aspirin 81 Mg Ectab) 81 mg PO QAM [place] Stop: 09/19/21 08:59 Last Admin: 08/25/21 09:05 Dose: 81 mg Documented by: Calcium Carbonate (Calcium Carbonate 1250mg Tab) 1,250 mg PO DAILY [place] Stop: 09/19/21 08:59 Last Admin: 08/25/21 09:06 Dose: 1,250 mg Documented by: Cyanocobalamin (Cyanocobalamin (Vitamin B-12) 2,500 Mcg Tab.Subl) 2,500 mcg SL DAILY [place] Stop: 09/19/21 08:59 Last Admin: 08/25/21 09:06 Dose: 2,500 mcg Documented by: Duloxetine HCl (Duloxetine Hcl 60 Mg Cap) 60 mg PO QAM [facility] Stop: 09/20/21 08:59 Last Admin: 08/25/21 09:11 Dose: 60 mg Documented by: Enoxaparin Sodium (Enoxaparin Inj 40 Mg/0.4 Ml Syr) 40 mg SQ Q24H [place] Stop: 09/19/21 08:59 Last Admin: 08/25/21 11:23 Dose: 40 mg Documented by: Folic Acid (Folic Acid 400 Mcg Tab) 400 mcg PO DAILY [place] Stop: 09/19/21 08:59 Last Admin: 08/25/21 09:12 Dose: 400 mcg Documented by: Heparin Sodium (Porcine) (Heparin 100 Unit/Ml 5ml Flush) 5 ml FLUSH PRN PRN PRN Reason: Flush Stop: 09/21/21 03:13 Magnesium Oxide (Magnesium Oxide 400 Mg Tab) 400 mg PO HS [place] Stop: 09/19/21 08:59 Last Admin: 08/24/21 20:39 Dose: 400 mg Documented by: Miscellaneous (Vyvanse 40 Mg - Order Awaiting Action) 1 ea N/A QS [place] Stop: 09/19/21 07:59 Last Admin: 08/25/21 11:25 Dose: Not Given Documented by: Miscellaneous (Belsomra 20 Mg - Order Awaiting Action) 1 ea N/A QS [place] Stop: 09/19/21 07:59 Last Admin: 08/25/21 11:25 Dose: Not Given Documented by: Multivitamins (Multivitamin Tab) 1 tab PO DAILY [place] Stop: 09/19/21 08:59 Last Admin: 08/25/21 09:12 Dose: 1 tab Documented by: Nitroglycerin (Nitroglycerin Sl 0.4 Mg/Tab Tab) 0.4 mg SL UD PRN PRN Reason: Chest Pain Stop: 09/19/21 04:26 Olanzapine (Olanzapine 10 Mg/2.1 Ml Sdv) 5 mg IM Q8H PRN PRN Reason: agitation Stop: 09/21/21 11:29 Last Admin: 08/24/21 09:21 Dose: 5 mg Documented by: Olanzapine (Olanzapine 5 Mg Tablet) 5 mg PO BID [place] Stop: 09/23/21 20:59 Last Admin: 08/25/21 09:13 Dose: 5 mg Documented by: Olanzapine (Olanzapine 5 Mg Tablet) 5 mg PO TID PRN PRN Reason: Agitation Stop: 09/23/21 20:59 Polyethylene Glycol (Polyethylene (Miralax) 17 Gm Pack) 17 gm PO DAILY PRN PRN Reason: Constipation Stop: 09/19/21 04:26 Thiamine HCl (Thiamine Hcl 100 Mg Tab) 100 mg PO QAM [place] Stop: 09/20/21 15:44 Last Admin: 08/25/21 09:13 Dose: 100 mg Documented by: Vitamin D (Cholecalciferol 1,000 Units 25 Mcg Tab) 1,000 units PO DAILY [place] Stop: 09/19/21 08:59 Last Admin: 08/25/21 09:07 Dose: 1,000 units Documented by: (1) Altered mental status Altered mental status type: unspecified Qualified Code(s): R41.82 - Altered mental status, unspecified
--- NOTE | 2021-08-25 15:14 | Hospitalist Progress Note ---
Date of Service August 25, 2021 Assessment & Plan (1) Bipolar affect, depressed: Plan: Continued her home medications on admission. Psychiatry was consulted and adjusting her medications, notably Cymbalta dose 60mBID seems too high - was changed to 60 mg daily and pt is also on klonapin which can make her more prone to falls. Also concern for poss. serotonin syndrome. One-on-one suicidal precautions initially, now removed Patient with intermittent agitation, specifically on 08/22 and again on morning of 08/24 Medications adjusted Vyvanse and bupropion discontinued, Zyprexa started She feels some improvement with Zyprexa 08/24 at 2100 and Zyprexa increased to 5 mg twice daily as well as as needed for breakthrough EKG done today revealed QTC 440ms Confusion questionable cerebrovascular accident on CAT scan of undetermined age.Confusion. MRI brain w/o contrast ordered and unremarkable. 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 -EF 55 to 60%. Mild to moderate aortic regurg. Trivial loculated anterior and right lateral pericardial effusion with mild organization. Grade 1 diastolic dysfunction. Started on aspirin on admission. Discussed with neurology, given a small vessel cerebrovascular disease on imaging, recommend antiplatelet therapy with aspirin 81 mg daily MRI brain w/ contrast obtained to rule out possible metastases, unremarkable Neurology consulted, appreciate their input. 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 UDS showed positive amphetemines likely secondary to Vyvanse, positive ecstasy likely from a wellbutrin and positive THC. Psych feels acute robby less likely and feels likely related to polysubstance use in setting of more fragile brain status post chemotherapy and radiation Recommend increasing zyprexa to 5mg twice daily with prn 5mg IM zyprexa for acute agitation with max dose of 20mg daily QTC stable Overall doing much better today. Per psychiatry notes complaining of orthostatic hypotension and lightheadedness. Will need to continue to evaluate. (2) Breast CA: Plan: Status post partial mastectomy and radiation per notes, continue to follow with local oncologist (3) Substance abuse: Plan: History of cocaine abuse. Urine tox screen reveals amphetamines, MDMA (which may be a false positive related to other mood stabilizing drugs she takes), and marijuana Patient states that she is prescribed medical marijuana (4) DVT prophylaxis: Plan: Lovenox Full code Disposition- med surg, pt with waxing and waning agitation, overall improving today, no further agitation may be able to reassess for discharge in the morning Admission and Anticipated Discharge Date Admission Date: August 19, 2021 Supervising Physician Co-Signing Physician Notes Patient is seen and examined at bedside. States doing much better today Also reports poor sleep. Patient states having transient nausea associated with dizziness earlier today which currently resolved Denies any chest pain, shortness breath, abdominal pain On exam patient is moderately built and nourished, no apparent distress, normocephalic atraumatic, lungs are clear to auscultation, S1-S2, no murmur, abdomen soft, nontender, normal bowel sounds, alert, awake, oriented, grossly no focal deficits Bipolar disorder Substance abuse disorder Appreciate psychiatry input Cymbalta dose decreased to 60 mg daily Vyvanse and bupropion discontinued Started on Zyprexa Patient improving on current medication Needs follow-up with psychiatry upon discharge I personally reviewed the record. Patient is interviewed and examined at bedside. Patient's care is coordinated with Leeann Matthew PA-C. Please refer to the documentation above for details of patient's presentation and for discussion of other issues. Subjective Patient was seen and examined in room 385-2. Follow-up bipolar disorder. She did not have any events overnight although she states that she did not sleep. She states she has not slept since yesterday at 6 AM. We discussed yesterday events and how she received IM Zyprexa and slept most of the afternoon yesterday. Overall mentally she is feeling better today. She starting to feel bad like herself as she is organizing her room. She denies fever, chills, sweats, lightheadedness, dizziness, chest pain, shortness breath, nausea, vomiting, abdominal pain. Her appetite is good. She already ambulated around the unit twice today. She does feel much better now that her bed alarm is off. Review of Systems Review of Systems: All systems reviewed & are unremarkable except as noted in HPI & below Physical Exam Physical Exam: Gen: WD/WN, NAD, A&O x3, improved affect, pleasant HEENT: Normocephalic, atraumatic, conjunctivae moist, sclerae anicteric, mucous membranes moist. Lung: Clear to Auscultation bilaterally, no wheezes/rales/rhonchi Heart: Regular rate, regular rhythm, no murmurs, rubs, or gallops Chest: Port in right anterior chest wall, no erythema Abdomen: Soft, NT, ND +BS x 4 Extremities: No edema Skin: Warm, no rash, negative turgor. Results & Data Results & Data ([facility]) Vital Signs (Past 12 Hours) Vital Signs Temp Pulse Resp BP Pulse Ox 08/25/21 07:21 37.0 C 85 16 116/70 95 Laboratory Results [facility] 08/25/21 06:37 Sodium 140 Potassium 4.4 Chloride 109 H Carbon Dioxide 26 BUN 19 H Creatinine 0.98 D Glucose 88 Calcium 9.1 (1) Breast CA Breast location: unspecified site of breast Estrogen receptor status: unspecified Laterality: unspecified laterality Patient sex: female Qualified Code(s): C50.919 - Malignant neoplasm of unspecified site of unspecified female breast
[2021-08-25] MEDS ORDERED: MELATONIN 3 MG TAB PO PRN (16:08)
[2021-08-25] MEDS: MAGNESIUM OXIDE 400 MG TAB PO SCH (20:09)
[2021-08-26 08:09] VITALS: BP 129/78; PULSE 100; TEMP 99; O2SAT 96
[2021-08-26 09:17] LABS: BUN Creatinine Ratio 18.5 (10-20); Calcium 8.8 mg/dl (8.5-10.1); Creatinine Clr Calc Pharmacy 50.7 ml/min; Est GFR (African American) 69.9 ml/min; Est GFR (Non-African American) 60.3 ml/min; Potassium 4.5 mmol/L (3.5-5.1)
[2021-08-26] MEDS: ASCORBIC ACID 500 MG TAB PO SCH (09:22)
[2021-08-26] MEDS: THIAMINE HCL 100 MG TAB PO SCH (09:22)
[2021-08-26] MEDS: FOLIC ACID 400 MCG TAB PO SCH (09:22)
[2021-08-26] MEDS: ASPIRIN 81 MG ECTAB PO SCH (09:22)
[2021-08-26] MEDS: MULTIVITAMIN TAB PO SCH (09:22)
[2021-08-26] MEDS: CALCIUM CARBONATE 1250MG TAB PO SCH (09:22)
[2021-08-26] MEDS: DULoxetine HCL 60 MG CAP PO SCH (09:22)
[2021-08-26] MEDS: CYANOCOBALAMIN (VITAMIN B-12) 2,500 MCG TAB.SUBL SL SCH (09:22)
[2021-08-26] MEDS: CHOLECALCIFEROL 1,000 UNITS 25 MCG TAB PO SCH (09:23)
[2021-08-26] MEDS: OLANZapine 5 MG TABLET PO SCH (09:23)
[2021-08-26] MEDS: ENOXAPARIN INJ 40 MG/0.4 ML SYR SQ SCH ×2 (09:23→10:11)
[2021-08-26] MEDS: ARTIFICIAL TEARS OP SCH ×2 (09:23→14:45)
--- NOTE | 2021-08-26 11:23 | Psychiatric Progress Note ---
Date of Service August 26, 2021 Impression / Recommendations Impression 60 yo female with hx of possible bipolar disorder vs depression and recent treatment for breast cancer presents with AMS and significant lability with concern for significant polypharmacy prior to admission. Presentation most consistent with hyperactive delirium, likely from polypharmacy, which has responded well to medication adjustments and low dose zyprexa. 08/26/21-Clinically improved and tolerating the zyprexa well. Agreeable to outpatient referral for therapy. (1) Bipolar affect, depressed: (2) Altered mental status: -zyprexa 5 mg BID, goal for 1-2 months of treatment and then discontinuation if mood remains stable -psych liason to attempt to set up outpatient therapist for follow-up -discontinued Klonopin -stable for discharge from a psychiatric standpoint Interval History Identifying Information 60 yo woman with a history of depression and breast cancer who was admitted medically after presenting with AMS and reports of erratic behavior since receiving chemotherapy and radiation treatment. Psychiatry was consulted for recommendations. Chief Complaint "I feel good and much better". Subjective Subjective Patient was seen & assessed and interval progress reviewed. She reports continuing to feel better and notes that her mom and talked with her on the phone and noted that she sounds like herself again. She also feels like h erself and noted that she's wanting to organize her stuff and keep things clean which is typical for her. No side effects this morning from the zyprexa and none last night. Continues to have somewhat shifted sleep schedule but it's improving. She's going to try not to nap today. Discussed option for outpatient therapy which she is agreeable to. Physical Exam Psychiatric Orientation: alert and oriented x 3 Apperance: appropriately dressed and appropriately groomed Eye Contact: good eye contact Motor Behavior: no abnormal motor movements Speech: normal rate/rhythm/volume of speech Affect: euthymic affect Mood: no depressed mood, no anxious mood and no irritable mood Thought Process: goal directed thought process Thought Content: reality based without delusions Suicidal Thoughts: denies suicidal thoughts Homicidal Thoughts: denies homicidal thoughts Hallucinations: no auditory hallucinations and no visual hallucinations Cognition: attention grossly intact and language grossly intact Estimated Intelligence: consistent with education level Insight: + fair insight Judgement: + fair judgement Vital Signs (Past 24 Hours) Last Vital Signs Temp 37.2 C 08/26/21 08:04 Pulse 100 H 08/26/21 08:04 Resp 17 08/26/21 08:04 BP 129/78 08/26/21 08:04 Pulse Ox 96 08/26/21 08:04 Results & Data ([facility]) Laboratory Results Laboratory Results - last 24 hr 08/21/21 08/26/21 11:09 08:00 Sodium 143 Potassium 4.5 Chloride 109 H Carbon Dioxide 25 Anion Gap 8.0 BUN 18 Creatinine 1.00 Est Cr Clr Drug Dosing 50.7 Est GFR ( Amer) 69.9 Est GFR (Non-Af Amer) 60.3 BUN/Creatinine Ratio 18.5 Glucose 98 Calcium 8.8 Vitamin B1 39 H Current Inpatient Medications Current Inpatient Medications: Current Inpatient Medications Acetaminophen (Acetaminophen 325 Mg Tab) 650 mg PO Q4H PRN PRN Reason: Pain or Fever Stop: 09/19/21 04:26 Last Admin: 08/24/21 17:59 Dose: 650 mg Documented by: Artificial Tears (Artificial Tears) 1 drops OP TID [facility] Stop: 09/20/21 13:59 Last Admin: 08/26/21 09:23 Dose: 1 drops Documented by: Ascorbic Acid (Ascorbic Acid 500 Mg Tab) 1,000 mg PO DAILY [facility] Stop: 09/19/21 08:59 Last Admin: 08/26/21 09:22 Dose: 1,000 mg Documented by: Aspirin (Aspirin 81 Mg Ectab) 81 mg PO QAM [facility] Stop: 09/19/21 08:59 Last Admin: 08/26/21 09:22 Dose: 81 mg Documented by: Calcium Carbonate (Calcium Carbonate 1250mg Tab) 1,250 mg PO DAILY [facility] Stop: 09/19/21 08:59 Last Admin: 08/26/21 09:22 Dose: 1,250 mg Documented by: Cyanocobalamin (Cyanocobalamin (Vitamin B-12) 2,500 Mcg Tab.Subl) 2,500 mcg SL DAILY [facility] Stop: 09/19/21 08:59 Last Admin: 08/26/21 09:22 Dose: 2,500 mcg Documented by: Duloxetine HCl (Duloxetine Hcl 60 Mg Cap) 60 mg PO QAM [facility] Stop: 09/20/21 08:59 Last Admin: 08/26/21 09:22 Dose: 60 mg Documented by: Enoxaparin Sodium (Enoxaparin Inj 40 Mg/0.4 Ml Syr) 40 mg SQ Q24H [facility] Stop: 09/19/21 08:59 Last Admin: 08/26/21 10:11 Dose: Not Given Documented by: Folic Acid (Folic Acid 400 Mcg Tab) 400 mcg PO DAILY [facility] Stop: 09/19/21 08:59 Last Admin: 08/26/21 09:22 Dose: 400 mcg Documented by: Heparin Sodium (Porcine) (Heparin 100 Unit/Ml 5ml Flush) 5 ml FLUSH PRN PRN PRN Reason: Flush Stop: 09/21/21 03:13 Magnesium Oxide (Magnesium Oxide 400 Mg Tab) 400 mg PO HS [facility] Stop: 09/19/21 08:59 Last Admin: 08/25/21 20:09 Dose: 400 mg Documented by: Melatonin (Melatonin 3 Mg Tab) 3 mg PO HS PRN PRN Reason: Sleep Stop: 09/24/21 16:07 Last Admin: 08/25/21 20:12 Dose: 3 mg Documented by: Miscellaneous (Vyvanse 40 Mg - Order Awaiting Action) 1 ea N/A QS [facility] Stop: 09/19/21 07:59 Last Admin: 08/26/21 08:51 Dose: Not Given Documented by: Miscellaneous (Belsomra 20 Mg - Order Awaiting Action) 1 ea N/A QS [facility] Stop: 09/19/21 07:59 Last Admin: 08/26/21 08:51 Dose: Not Given Documented by: Multivitamins (Multivitamin Tab) 1 tab PO DAILY [facility] Stop: 09/19/21 08:59 Last Admin: 08/26/21 09:22 Dose: 1 tab Documented by: Nitroglycerin (Nitroglycerin Sl 0.4 Mg/Tab Tab) 0.4 mg SL UD PRN PRN Reason: Chest Pain Stop: 09/19/21 04:26 Olanzapine (Olanzapine 10 Mg/2.1 Ml Sdv) 5 mg IM Q8H PRN PRN Reason: agitation Stop: 09/21/21 11:29 Last Admin: 08/24/21 09:21 Dose: 5 mg Documented by: Olanzapine (Olanzapine 5 Mg Tablet) 5 mg PO BID [facility] Stop: 09/23/21 20:59 Last Admin: 08/26/21 09:23 Dose: 5 mg Documented by: Olanzapine (Olanzapine 5 Mg Tablet) 5 mg PO TID PRN PRN Reason: Agitation Stop: 09/23/21 20:59 Last Admin: 08/25/21 13:46 Dose: 5 mg Documented by: Polyethylene Glycol (Polyethylene (Miralax) 17 Gm Pack) 17 gm PO DAILY PRN PRN Reason: Constipation Stop: 09/19/21 04:26 Thiamine HCl (Thiamine Hcl 100 Mg Tab) 100 mg PO QAM [facility] Stop: 09/20/21 15:44 Last Admin: 08/26/21 09:22 Dose: 100 mg Documented by: Vitamin D (Cholecalciferol 1,000 Units 25 Mcg Tab) 1,000 units PO DAILY [facility] Stop: 09/19/21 08:59 Last Admin: 08/26/21 09:23 Dose: 1,000 units Documented by: (1) Altered mental status Altered mental status type: unspecified Qualified Code(s): R41.82 - Altered mental status, unspecified
--- NOTE | 2021-08-26 12:31 | Discharge Summary ---
Date of Service August 26, 2021 Admission HPI Per Admitting Provider HISTORY OF PRESENT ILLNESS: This is a 60-year-old female with past medical history significant for malignant neoplasm at central portion of breast estrogen receptor positive status post radiation, left partial mastectomy, history of anemia, history of SLE, history of depression, history of cocaine abuse, was brought in by her because of suicidal ideation at home. Patient is also having depression. She says she is mostly sleeping at home and also not eating much, tired, whenever she takes medication she feels weak and tired, tries to sleep, not doing much, right now she is not having any thoughts to hurt herself. Denies any fever or chills. No headache. Has some neck pain and chronic back pain. No chest pain, no abdominal pain, no shortness of breath, no cough. Sometimes she has difficulty swallowing pills and drinks lot of water.. Currently, no nausea, normal bowel and bladder movements. No swelling in the legs. Admission Exam Per Admitting Provider PHYSICAL EXAMINATION: GENERAL: The patient is moderate build, not in acute distress. VITAL SIGNS: Temperature 36.2, pulse of 86, respiratory rate 16, blood pressure 132/92, oxygen 97% on room air. HEENT: Pupils equal, round and reactive to light. Atraumatic. Extraocular muscles intact. Oral mucosa moist. NECK: No JVD. No neck masses. CARDIOVASCULAR: S1 and S2 heard. Regular rate and rhythm. No murmur, no gallop. RESPIRATORY: Normal AP diameter. No accessory muscle use. No wheezing, no crackles. ABDOMEN: Soft, bowel sounds present, nontender, no distention. CENTRAL NERVOUS SYSTEM: Cranial nerves II-XII grossly intact. Power 5/5 in all extremities. co ordination of movements was normal. [id number] test normal. No pronator drift. Position sense intact. EXTREMITIES: No edema, no erythema. Principal Diagnosis Altered mental status Bipolar affect, depressed Substance use Discharge Exam Gen: WD/WN, NAD, A&O x3, improved affect, pleasant HEENT: Normocephalic, atraumatic, conjunctivae moist, sclerae anicteric, mucous membranes moist. Lung: Clear to Auscultation bilaterally, no wheezes/rales/rhonchi Heart: Regular rate, regular rhythm, no murmurs, rubs, or gallops Chest: Port in right anterior chest wall, no erythema Abdomen: Soft, NT, ND +BS x 4 Extremities: No edema Skin: Warm, no rash, negative turgor. Discharge Data Allergies Allergy/AdvReac Type Severity Reaction Status Date / Time sulfamethoxazole Allergy Severe Anaphylaxis Verified 08/19/21 19:02 [From Bactrim] trimethoprim [From Bactrim] Allergy Severe Anaphylaxis Verified 08/19/21 19:02 oxycodone Allergy Intermediate ITCHING Verified 08/19/21 19:02 Penicillins AdvReac Unknown NOT Verified 08/19/21 19:02 EFFECTIVE Consultations 08/19/21 20:50 ED Decision to Admit Stat 08/20/21 08:00 Consult Neurology Routine Consult Psychiatry Routine Ordered Studies Head CT 08/19/21 18:39 CT head/brain wo con CLINICAL HISTORY: confusion, mood changes, h/o breast CA COMPARISON STUDY: No previous studies for comparison. CT DOSE: 638.56 mGycm TECHNIQUE: Standard CT of the Brain was performed without IV contrast. A dose lowering technique was utilized adhering to the principles of ALARA. FINDINGS: Extraaxial space: There is no evidence for subdural hematoma. There are no extra-axial fluid collections. Ventricles and cisterns: The ventricles are mildly dilated bilaterally. There is no evidence for midline shift or mass effect. Parenchyma: There is no subarachnoid or intraparenchymal hemorrhage. There is evidence for small lacunar infarct involving the head and thalamus on the right. Its age cannot be determined by this study. There is no other evidence for an acute infarct or cerebral edema. There is homogeneous attenuation of the brain parenchyma. There are no gross mass lesions. Osseous structures: There is no evidence for an acute fracture. The visualized paranasal sinuses are clear. The mastoid air cells are clear bilaterally. Soft tissues: There is no evidence for focal soft tissue swelling. IMPRESSION: Small lacunar infarct involving the head of the thalamus of undetermined age. If indicated clinically, follow-up MRI could be obtained for further evaluation. ACT 112: Positive. There are findings on this exam that require communication between the performing entity and the patient following Patient Test Result Information Act ([place] Act 112) guidelines. Electronically signed by: Emil Vences M.D. 08/19/2021 7:44 PM Brain MRI 08/19/21 20:50 MR brain wo con HISTORY: 60 years-old Female behavioral change, h/o breast CA patient presents with altered mental status] impression. History of melanoma and breast cancer COMPARISON: Head CT of same day TECHNIQUE: Multiplanar multisequence MRI of the brain was obtained without the use of IV contrast. FINDINGS: There is no restricted diffusion to suggest acute or subacute infarct. Encephalomalacia related to chronic infarcts of the left cerebellar hemisphere measuring up to 2.2 cm. No acute intracranial hemorrhage, midline shift, abnormal extra axial collection, hydrocephalus or intracranial mass. Motion degraded exam. No pathologic blooming artifact on the T2 star series. Age- related involutional changes. Mild scattered T2/FLAIR hyperintense foci noted within the periventricular white matter of the cerebral hemispheres. Cerebral venous sinuses and major arterial flow voids appear patent. Mastoid air cells and paranasal sinuses are clear. The skull, orbits and soft tissues are unremarkable. Fluid surrounding the bilateral optic nerve tracts is favored to be physiologic. IMPRESSION: 1. No acute intracranial abnormality. No acute or subacute infarct. 2. 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 3. Age-related involutional changes with suggestion of mild chronic microvascular ischemic disease. ACT 112: Negative or not required by law. The above report was generated using voice recognition software. It may contain grammatical, syntax or spelling errors. Electronically signed by: Jaison Mix M.D. 08/20/2021 7:15 AM Brain MRI 08/21/21 15:25 MR brain wo/w con CLINICAL HISTORY: History of breast cancer status post chemoradiation therapy. Memory loss. Balance issues. Evaluate for metastatic disease. History of previous stroke COMPARISON STUDY: MRI brain without contrast on 08/19/2021 TECHNIQUE: Multiplanar multisequence images of the brain were performed before and after Gadavist, 7 mL of IV contrast. Diffusion weighted imaging and ADC mapping was also performed. FINDINGS: Extra-axial space: There is no evidence for a subdural hematoma, There are no extra-axial fluid collections. Ventricles and cisterns: The ventricles are mildly dilated bilaterally. There is no evidence for midline shift or mass effect. Parenchyma: On noncontrast images, there is no evidence for an acute hemorrhage or infarct. No acute diffusion abnormalities are noted on diffusion weighted imaging or ADC mapping. Old left occipital infarct is again seen. There is normal martinez-white differentiation. There is minimal bright signal seen on FLAIR weighted sequences within the centrum semiovale and periventricular white matter characteristic of remote small vessel disease. The sulci and gyri appear normal without effacement. The midline structures are unremarkable. The posterior fossa structures appear normal. On postcontrast images, there is no evidence for enhancing mass lesion. Osseous structures: The paranasal sinuses are well aerated. The mastoid air cells are well aerated. Soft tissues: No focal soft tissue abnormalities are identified. IMPRESSION: No acute intracranial abnormalities. No evidence for enhancing metastatic disease or significant interval change from the noncontrast study of 2 days ago. ACT 112: Negative or not required by law. Electronically signed by: Emil Vences M.D. 08/21/2021 6:33 PM EEG: Date of Service: August 24, 2021 EEG was reviewed and following results. This is a normal EEG failing to reveal any evidence for a focal generalized encephalopathy potentially if any discharges or any other form of paroxysmal neurologic disturbance no evidence of seizure activity or focus. no further neurologist testing needed at this time. I have discussed above patient with Dr Radha Biggs, neurology Hospital Course (1) Bipolar affect, depressed: This is a 60-year-old female with significant past medical history of malignant neoplasm of central portion of breast estrogen receptor positive status post radiation, left partial mastectomy and chemotherapy, history of lupus, anemia, history of depression and anxiety, history of cocaine abuse and medical marijuana use who was brought into ED by her due to suicidal ideation at home. She has been having waxing and waning altered mental status with increasing depression and anxiety. She was admitted to medical service due to concern for possible organic pathology. Initially a one-to-one was placed for suicide precautions. She underwent an MRI of the brain with and without contr ast to rule out acute CVA or metastases. This was negative for an acute event but did reveal chronic infarct of the left cerebellar hemisphere and mild chronic microvascular ischemic disease. Neurology was consulted who recommended daily baby aspirin given MRI findings. She did have a TSH, B12 level, ammonia level and B1 level which were unremarkable. Her B1 level was actually mildly elevated at 39. Psychiatry was involved and essentially washed patient out of her medications. She was on multiple psychiatric medications and there was also concern for serotonin syndrome. Her bupropion, clonazepam, Vyvanse, Belsomra and trazodone were discontinued. Her Cymbalta was decreased to once daily. She was started on oral Zyprexa and was titrated to 5 mg twice daily. She did occasionally need IM Zyprexa for intermittent agitation. Prior to discharge she remained pleasant and was not agitated for approximately 36 hours. She felt back to her baseline. She had daily psychiatry involvement as outpatient. She was also provided with instructions on tapering her Zyprexa. She will follow up with psychiatry as outpatient. At time of discharge she was in good spirits and ready to be discharged home. She was ambulating about the unit without difficulty and tolerating regular diet. Her EKG on day prior to discharge revealed normal sinus rhythm with a QTC 440 MS. (2) Breast CA: (3) Substance abuse: (4) DVT prophylaxis: Total Time Total Time Spent Total Time Spent (In Minutes): 60 min Total Time Includes: Examination of the Patient, Discharge Planning, Medication Reconciliation, Communication With Other Providers and Other Discharge Plan Discharge Items Patient Disposition: Home - Self-Care Reason For Visit: SI Discharge Diagnosis: Altered mental status Bipolar affect, depressed Substance use Condition on Discharge: Good Activity: Resume your previous activity Lifting: Wait until after follow-up appointment Bathing: No limitations Exercise/Sports: Wait until after follow-up appointment Driving/Machine Use: Resume 3 days after discharge Weightbearing: Full weightbearing Non-emergency contact: Primary Care Provider Call non-emergency contact if: you have any medication questions, your symptoms worsen, your pain is worsening, you have a fever and your temperature is above 101 Follow-up/Referrals: Jimbo Freeman [Primary Care Provider] - (Dr Freeman's office will call you with an appointment date for follow up. [address] [place] [address], [place] [address] ) Diet: Regular Addtl Attending Provider Instructions: MEDICATION CHANGES: New Medications Zyprexa 5mg by mouth twice daily Cymbalta 60 mg in the morning Aspirin 81 mg daily STOP TAKING Bupropion 300 mg daily Clonazepam 1 mg every 6 hours as needed Duloxetine 60 mg twice a day Vyvanse 40 mg daily Belsomra 20 mg at bedtime Trazodone 50 mg at bedtime SUMMARY OF TEST RESULTS: You are admitted to hospital due to confusion. You underwent extensive neurological work-up including MRI of brain and EEG of brain to rule out seizure. MRI was negative for any acute event or brain metastases of cancer. MRI did reveal a previous stroke on the left side of your brain. You were seen and evaluated by neurology who recommended you take a baby aspirin once daily indefinitely. It was felt that your confusion and agitation was likely related to multiple psychiatric medications, recent chemotherapy and use of marijuana. You had multiple psychiatric medications stopped including bupropion, clonazepam, duloxetine, Vyvanse, Belsomra and trazodone. You were started on Zyprexa 5 mg twice daily and your Cymbalta was decreased to once daily. This d id improve your symptoms; however, you will need close psychiatric follow-up and primary care follow-up as outpatient. You also underwent ultrasound of your heart which was normal. PENDING TEST RESULTS: None RECOMMENDATIONS FOR FOLLOW-UP: Please take all medications as prescribed. Avoid substance use including marijuana. Please follow-up with primary care doctor as scheduled. You will be called by Psychiatry for your follow up appointment. It is recommended you continue Zyprexa 5 mg daily x1 month. After 1 month reduc e Zyprexa to 5 mg at bedtime. If symptoms continue to remain stable after 2 to 4 weeks you may discontinue. Please discuss with your family doctor prior to discontinuing. Follow-up with primary care doctor for lab work including BMP, A1c, fasting lipid profile, weight and ekg monitoring while on Zyprexa. Follow up with oncologist as directed. OTHER INSTRUCTIONS: Seek medical attention if you have: * temperature above 101 * chest pain or trouble breathing * abdominal pain, nausea, vomiting * diarrhea, dark stools or bloody stools * any unanswered questions or concerns Call 911 if symptoms are severe. Please take good care of yourself. It has been a pleasure taking care of you. Please take care of yourself. If you have any questions regarding your recent hospitalization please contact [facility] and [facility] @ [phone]. Leeann Matthew PA-C Addtl [employer] Provider Instructions: Psychiatry: Recommend continuing zyprexa 5mg BID for one month, after that suggest reducing dose to zyprexa 5 mg QHS and then if symptoms remains stable discontinue after another 2-4 weeks. If zyprexa is continued for more than two months then recommend: labs of fasting glucose, HbA1c, fasting lipid profile, and weight. Recommend repeat weight in one month. Recommend repeat fasting glucose, HbA1c and fasting lipid profile every 12 weeks and then annually. If symptoms arise recommend checking BP, EKG, prolactin level as clinically indicated or relevant. Pending Studies at Discharge: No Stand-Alone Forms: My [facility], Smoking Cessation Medications and DC Order Prescriptions: New olanzapine 5 mg Tablet 5 mg PO BID Qty: 60 RF: 0 aspirin 81 mg Tablet,Delayed Release (Dr/Ec) 81 mg PO QAM 30 Days Qty: 30 RF: 0 Continued ascorbic acid (vitamin C) 500 mg capsule 1,000 mg PO DAILY RF: 0 cholecalciferol (vitamin D3) 25 mcg (1,000 unit) capsule 25 mcg PO DAILY RF: 0 mecobalamin (vitamin B12) 5,000 mcg tablet,disintegrating 2,500 mcg PO DAILY RF: 0 calcium carbonate 600 mg calcium (1,500 mg) tablet 600 mg PO DAILY RF: 0 folic acid 400 mcg tablet 0.4 mg PO DAILY RF: 0 magnesium oxide 250 mg magnesium tablet 250 mg PO DAILY RF: 0 DOTERRA ESSENTIAL 2 dose PO QAM Qty: 0 RF: 0 multivitamin Tablet 1 tab PO DAILY RF: 0 Changed duloxetine [Cymbalta] 60 mg capsule,delayed release(DR/EC) 60 mg PO DAILY Qty: 0 RF: 0 Discontinued Belsomra 20 mg tablet 20 mg PO HS RF: 0 trazodone 50 mg tablet 50 - 100 mg PO HS RF: 0 clonazepam 1 mg tablet 1 - 2 mg PO Q6H PRN (Reason: Anxiety) RF: 0 bupropion HCl 300 mg tablet extended release 24 hr 300 mg PO QAM RF: 0 Vyvanse 40 mg capsule 40 mg PO DAILY RF: 0 Discharge Orders: Discharge Order (Routine); Ordered 08/26/21 Ordered By: Leeann Jerry/Other Patient Handouts: Treating Insomnia Admission Data Admit Date/Time: 08/19/21 22:56 Attending Provider: Jaden Schofield Admit Provider: Hollis Cramer Primary Care Provider: Jimbo Freeman Other Providers: Hollis Cramer ; Jersey Bah ; Carolin Wheeler ; Berna Giraldo ; Kiah Robles ; Blu Baugh ; Dianna Gutierrez ; Leeann Matthew Other Interventions: Discharge Summary Assessment (RN) Last Done: 08/26/21 12:59 Supervising Physician Co-Signing Physician Notes Patient is seen and examined at bedside. No new complaints. Denies any chest pain, shortness breath, abdominal pain On exam patient is moderately built and nourished, no apparent distress, normocephalic atraumatic, lungs are clear to auscultation, S1-S2, no murmur, abdomen soft, nontender, normal bowel sounds, alert, awake, oriented, grossly no focal deficits Bipolar disorder Substance abuse disorder Appreciate psychiatry input Cymbalta dose decreased to 60 mg daily Vyvanse and bupropion discontinued Started on Zyprexa Needs follow-up with psychiatry upon discharge Advised to quit marijuana use I personally reviewed the record. Patient is interviewed and examined at bedside. Patient's care is coordinated with Leeann Matthew PA-C. Please refer to the documentation above for details of patient's presentation and for discussion of other issues.
== END 2021-08-26 15:30 | disposition home or self-care (01) ==
LOC: ED 14:21 → SUATTDRO 22:56 → INTOOBSV 22:56 → EDINP 08-20 → 2N 08-21 15:59 → 3N 08-22 18:43

== ENCOUNTER 2022-03-02 07:01 | Inpatient (IN) ==
[2022-03-02 07:51] LABS: Basophils # (auto) 0.02 K/uL (0-0.2); Basophils % (auto) 0.2 %; Eosinophils # (auto) 0.07 K/uL (0-0.5); Eosinophils % (auto) 0.9 %; Hematocrit (blood only) 39.6 % (37-47); Hemoglobin 13.3 g/dL (12.0-16.0); Immature Granulocytes # (auto) 0.01 K/uL (0.00-0.02); Immature Granulocytes % (auto) 0.1 %; Lymphocytes # (auto) 1.37 K/uL (1.2-3.4); Lymphocytes % (auto) 17.1 %; Mean Corpuscular Hemoglobin 32.8 pg (25-34); Mean Corpuscular Hgb Conc 33.6 g/dL (32-36); Mean Corpuscular Volume 97.5 fL (80-100); Mean Platelet Volume 9.8 fL (7.4-10.4); Monocytes # (auto) 0.73 K/uL (0.11-0.59); Monocytes % (auto) 9.1 %; Neutrophils # (auto) 5.81 K/uL (1.4-6.5); Neutrophils % (auto) 72.6 %; Platelet Count 288 K/uL (130-400); RDW Coefficient of Variation 14.9 % (11.5-14.5); RDW Standard Deviation 53.3 fL (36.4-46.3); Red Blood Count 4.06 M/uL (4.2-5.4); White Blood Count 8.01 K/uL (4.8-10.8)
[2022-03-02] MEDS ORDERED: LORazepam 1 MG TAB SL STA (07:52)
[2022-03-02] MEDS ORDERED: NICOTINE 14 MG/24 HR PATCH TD STA (07:57)
--- NOTE | 2022-03-02 07:57 | Emergency Department Note ---
Impression & Plan Suicidal ideation, Tremor, Tachycardia, Mood disorder, Anxiety ED Provider Note INFORMANT: Patient ED PROVIDER(S): Yadiel Perry MD CHIEF COMPLAINT: Suicidal PLAN: Disposition: Admitted Condition: Good Outpatient prescription management: none Referral: None MEDICAL DECISION MAKING: Patient presented to the emergency department because of suicidal ideation. She was previously seen and had a work-up for tremors. At that time diagnostic testing negative. Her vital signs showed a tachycardia but the patient was very anxious. She was given a dose of sublingual Ativan and a nicotine patch given her smoking status. ECG was performed and showed a sinus tachycardia. No acute ischemic change noted. The patient had blood work done and had an unremarkable CBC and chemistry panel. Toxicology screen was negative. Patient had a borderline D-dimer and given the tachycardia was sent for CT imaging of the chest. This was negative. Troponin negative. Patient had remainder of her labs are negative. Consultation was made with [address] [place] [address]. Patient was evaluated in the ER and admitted for further management. Triage Nursing notes reviewed and agree them. Vital Signs: reviewed and remarkable for tachycardia. Similar to prior. Differential diagnosis: Mood disorder, infection, hypoglycemia, electrolyte abnormalities, cardiac sources, intracerebral event, toxicologic, trauma, neurologic, as well as other pathologies. Diagnostics interpreted by me: EC Lead ECG performed and revealed sinus tachycardic rhythm at 124 bpm, normal [place], QRS normal. No elevation or depression. No PACs or PVCs Cardiac Monitoring: none Imaging studies: CT imaging of the chest is negative for pulmonary embolus or other acute pathology. HPI: The patient is a 61 year old female who presents to the Emergency Room with complaints of suicidal ideation. This started over the last few days and is worsening. Patient has a plan to take pills. The patient also notes the following associated symptoms, poor sleep and anxiety. Patient has been dealing with tremors for the last year or so. Work-up so far to date has been negative. Patient was seen in the ER at the end of last week and work-up negative. Patient referred to neurology. Patient has appointment pending March 22. The patient has tried Ativan unsuccessfully for relieving factors. Current pain is rated as 0/10. Pt denies LOC, headache, fevers, chills, diaphoresis, visual changes, neck pain, chest pain, breathing difficulties, nausea, vomiting, abdominal pain, back pain, melena, hematochezia, urinary symptoms, numbness, weakness, lymphadenopathy, rash, or other complaints. ROS: See above HPI for pertinent positives & negatives. A total of 10 systems reviewed and were otherwise negative. PAST MEDICAL HISTORY:See Below , tremor, breast cancer PAST SURGICAL HISTORY:See Below, FAMILY HISTORY:See Below SOCIAL HISTORY:See Below, smoker HOME MEDICATIONS:See Below ALLERGIES:See Below VITALS:See Below PHYSICAL EXAMINATION: GENERAL: Awake, alert, anxious-appearing, in no distress HENT: Normocephalic, atraumatic. Oropharynx unremarkable. EYES: Normal conjunctiva. Sclera non-icteric. NECK: Inspection normal. Non-tender. Supple. No nuchal rigidity. FROM. No masses. RESPIRATORY: Clear to auscultation. No wheezes. No rales. Normal respiratory effort. CARDIAC: Tachycardic rate. Normal rhythm. No murmurs. No rubs. Extremities warm and well perfused. Pulses equal. No JVD. GI: Soft, non-distended. No tenderness to palpation. No rebound or guarding. No masses. RECTAL: Deferred. MUSCULOSKELETAL: Atraumatic. Chest examination reveals no tenderness. The back is symmetrical on inspection without obvious abnormality. There is no CVA tenderness to palpation. No joint edema. LOWER EXTREMITIES: Calves are equal size bilaterally and non-tender. No edema. No discoloration. NEURO: Normal sensorium. No sensory or motor deficits noted. SKIN: No rash or jaundice noted. PSYCH: Anxious mood. Suicidal ideation with plan to overdose. No homicidal ideation. Yadiel Perry MD Past Med/Surg History Medical History (Updated 03/02/22 @ 07:57 by Yadiel Perry MD) Anxiety Cervical stenosis of spinal canal Depression Diverticulosis Glaucoma History of chemotherapy 08/05/20-01/12/21 4 cycles Cyclophosphamide/Adriamycin/Taxol, 12 cycles Taxol Insomnia Melanoma Port-A-Cath in place Retinopathy Treated with laser photocoagulation Systemic lupus erythematosus Surgical History History of back surgery Laminectomy - L4/5 - spinal fusion May 2020 History of bunionectomy Right History of carpal tunnel surgery Right History of neck surgery Cervical spine surgery 2016 Hx of colonoscopy Previous section X 2 S/P LASIK surgery S/P tonsillectomy Status post left breast lumpectomy With SLN biopsy on 06/16/2020 Family History Mother Myocardial infarction Arthritis Father , at 74yo Myocardial infarction Hx of CABG Diabetes Prostate cancer Hypertension Brother Hypertension Son No problems noted. Son No problems noted. 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 Beliefs That Will Affect Care: None marital status: Current Living Situation: Spouse current occupational status: retired current occupation: [employer] How many Children do You have: 2 Feels Safe at Home: Yes caffeine: Yes (1 can diet coke/day) during the past year weight has: remained stable Assistive Devices: None Allergies Allergies Allergy/AdvReac Type Severity Reaction Status Date / Time sulfamethoxazole Allergy Severe Anaphylaxis Verified 02/18/22 10:23 [From Bactrim] trimethoprim [From Bactrim] Allergy Severe Anaphylaxis Verified 02/18/22 10:23 oxycodone Allergy Intermediate ITCHING Verified 02/18/22 10:23 Penicillins AdvReac Unknown NOT Verified 02/18/22 10:23 EFFECTIVE Home Meds Home Medications Medication Instructions Recorded Confirmed DOTERRA ESSENTIAL 2 dose PO QAM #0 08/25/20 02/18/22 ascorbic acid (vitamin C) 500 mg 1,000 mg PO DAILY cap 01/27/21 02/18/22 capsule calcium carbonate 600 mg calcium 600 mg PO DAILY 01/27/21 02/18/22 (1,500 mg) tablet cholecalciferol (vitamin D3) 25 25 mcg PO DAILY 01/27/21 02/18/22 mcg (1,000 unit) capsule folic acid 400 mcg tablet 0.4 mg PO DAILY 01/27/21 02/18/22 magnesium oxide 250 mg PO DAILY 01/27/21 02/18/22 mecobalamin (vitamin B12) 5,000 2,500 mcg PO DAILY tab 01/27/21 02/18/22 mcg disintegrating tablet multivitamin 1 tab PO DAILY 08/19/21 02/18/22 aspirin 81 mg tablet,delayed 81 mg PO DAILY 02/18/22 02/18/22 release benztropine 1 mg tablet 1 mg PO DAILY 02/18/22 03/02/22 cariprazine 3 mg capsule 3 mg PO DAILY 02/18/22 02/18/22 letrozole 2.5 mg tablet 2.5 mg PO DAILY 02/18/22 02/18/22 rosuvastatin 10 mg tablet 10 mg PO DAILY 02/18/22 02/18/22 temazepam 30 mg capsule (Restoril) 30 mg PO .QHS cap 02/18/22 03/02/22 trazodone 100 mg tablet 100 mg PO DAILY 02/18/22 03/02/22 vilazodone 10 mg tablet (Viibryd) 10 mg PO DAILY 02/18/22 02/18/22 Ativan 1 tab PO BID 03/02/22 03/02/22 Results & Data (ED) Vital Signs Vital Signs - 24 hr 03/02/22 07:05 03/02/22 08:27 03/02/22 09:07 Temperature 36.7 C Temperature Source Oral Pulse Rate 142 H Pulse Rate [Finger] 122 H 98 H Respiratory Rate 18 20 Respiratory Effort / Characteristics Non-Labored Non-Labored Spontaneous Respiratory Depth Normal Normal Respiratory Pattern Regular Blood Pressure 162/98 H Blood Pressure [Left Arm] 136/91 Blood Pressure Mean 119 Blood Pressure Mean [Left Arm] 106 Pulse Oximetry 96 98 Oxygen Delivery Method Room Air Room Air Sepsis Recent Fever Within 48 Hours No Sepsis New/Unexplained Change in Mental Status No Sepsis Action Taken by Nursing No Action Required Laboratory Data Result diagrams: 03/02/22 07:38 03/02/22 07:38 Lab Results 03/02/22 03/02/22 03/02/22 Range/Units 07:35 07:38 07:38 WBC 8.01 (4.8-10.8) K/uL RBC 4.06 L (4.2-5.4) M/uL Hgb 13.3 (12.0-16.0) g/dL Hct 39.6 (37-47) % MCV 97.5 (80-100) fL MCH 32.8 (25-34) pg MCHC 33.6 (32-36) g/dL RDW Std Deviation 53.3 H (36.4-46.3) fL RDW Coeff of Lore 14.9 H (11.5-14.5) % Plt Count 288 (130-400) K/uL MPV 9.8 (7.4-10.4) fL Immature Gran % (Auto) 0.1 % Neut % (Auto) 72.6 % Lymph % (Auto) 17.1 % [place] % (Auto) 9.1 % Eos % (Auto) 0.9 % Baso % (Auto) 0.2 % Neut # (Auto) 5.81 (1.4-6.5) K/uL Lymph # (Auto) 1.37 (1.2-3.4) K/uL [place] # (Auto) 0.73 H (0.11-0.59) K/uL Eos # (Auto) 0.07 (0-0.5) K/uL Baso # (Auto) 0.02 (0-0.2) K/uL Immature Gran # (Auto) 0.01 (0.00-0.02) K/uL D-Dimer (0-500) ug/L FEU Sodium 140 (136-145) mmol/L Potassium 4.7 (3.5-5.1) mmol/L Chloride 106 (98-107) mmol/L Carbon Dioxide 27 (21-32) mmol/L Anion Gap 7 (3-11) BUN 12 (6-23) mg/dl Creatinine 1.12 (0.6-1.2) mg/dl Est Cr Clr Drug Dosing 42.7 ml/min Est GFR ( Amer) 60.5 ml/min Est GFR (Non-Af Amer) 52.2 ml/min BUN/Creatinine Ratio 10.7 (10-20) Glucose 134 H (70-99(Fasting)) mg/dl Calcium 9.6 (8.5-10.1) mg/dl Total Bilirubin 0.4 (0.2-1.0) mg/dl AST 20 (13-39) U/L ALT 15 (7-52) U/L Alkaline Phosphatase 74 (34-104) U/L Troponin I High Sens 5.7 (0-14) pg/ml Total Protein 7.3 (6.0-8.3) gm/dl Albumin 4.5 (3.4-5.0) gm/dl Globulin 2.8 (2.5-4.0) gm/dl Albumin/Globulin Ratio 1.6 (0.9-2) TSH (0.300-4.500) uIu/ml Salicylates (3.0-30) mg/dl Acetaminophen (10-30) ug/ml Ethyl Alcohol mg/dL (<10.0) mg/dl SARS-CoV-2, RNA, NAAT NEGATIVE (NEGATIVE) 03/02/22 03/02/22 03/02/22 Range/Units 07:38 07:38 07:38 WBC (4.8-10.8) K/uL RBC (4.2-5.4) M/uL Hgb (12.0-16.0) g/dL Hct (37-47) % MCV (80-100) fL MCH (25-34) pg MCHC (32-36) g/dL RDW Std Deviation (36.4-46.3) fL RDW Coeff of Lore (11.5-14.5) % Plt Count (130-400) K/uL MPV (7.4-10.4) fL Immature Gran % (Auto) % Neut % (Auto) % Lymph % (Auto) % [place] % (Auto) % Eos % (Auto) % Baso % (Auto) % Neut # (Auto) (1.4-6.5) K/uL Lymph # (Auto) (1.2-3.4) K/uL [place] # (Auto) (0.11-0.59) K/uL Eos # (Auto) (0-0.5) K/uL Baso # (Auto) (0-0.2) K/uL Immature Gran # (Auto) (0.00-0.02) K/uL D-Dimer (0-500) ug/L FEU Sodium (136-145) mmol/L Potassium (3.5-5.1) mmol/L Chloride (98-107) mmol/L Carbon Dioxide (21-32) mmol/L Anion Gap (3-11) BUN (6-23) mg/dl Creatinine (0.6-1.2) mg/dl Est Cr Clr Drug Dosing ml/min Est GFR ( Amer) ml/min Est GFR (Non-Af Amer) ml/min BUN/Creatinine Ratio (10-20) Glucose (70-99(Fasting)) mg/dl Calcium (8.5-10.1) mg/dl Total Bilirubin (0.2-1.0) mg/dl AST (13-39) U/L ALT (7-52) U/L Alkaline Phosphatase (34-104) U/L Troponin I High Sens (0-14) pg/ml Total Protein (6.0-8.3) gm/dl Albumin (3.4-5.0) gm/dl Globulin (2.5-4.0) gm/dl Albumin/Globulin Ratio (0.9-2) TSH 0.824 (0.300-4.500) uIu/ml Salicylates < 3.0 L (3.0-30) mg/dl Acetaminophen < 3 L (10-30) ug/ml Ethyl Alcohol mg/dL < 10.0 (<10.0) mg/dl SARS-CoV-2, RNA, NAAT (NEGATIVE) 03/02/22 Range/Units 07:38 WBC (4.8-10.8) K/uL RBC (4.2-5.4) M/uL Hgb (12.0-16.0) g/dL Hct (37-47) % MCV (80-100) fL MCH (25-34) pg MCHC (32-36) g/dL RDW Std Deviation (36.4-46.3) fL RDW Coeff of Lore (11.5-14.5) % Plt Count (130-400) K/uL MPV (7.4-10.4) fL Immature Gran % (Auto) % Neut % (Auto) % Lymph % (Auto) % [place] % (Auto) % Eos % (Auto) % Baso % (Auto) % Neut # (Auto) (1.4-6.5) K/uL Lymph # (Auto) (1.2-3.4) K/uL [place] # (Auto) (0.11-0.59) K/uL Eos # (Auto) (0-0.5) K/uL Baso # (Auto) (0-0.2) K/uL Immature Gran # (Auto) (0.00-0.02) K/uL D-Dimer 580 H* (0-500) ug/L FEU Sodium (136-145) mmol/L Potassium (3.5-5.1) mmol/L Chloride (98-107) mmol/L Carbon Dioxide (21-32) mmol/L Anion Gap (3-11) BUN (6-23) mg/dl Creatinine (0.6-1.2) mg/dl Est Cr Clr Drug Dosing ml/min Est GFR ( Amer) ml/min Est GFR (Non-Af Amer) ml/min BUN/Creatinine Ratio (10-20) Glucose (70-99(Fasting)) mg/dl Calcium (8.5-10.1) mg/dl Total Bilirubin (0.2-1.0) mg/dl AST (13-39) U/L ALT (7-52) U/L Alkaline Phosphatase (34-104) U/L Troponin I High Sens (0-14) pg/ml Total Protein (6.0-8.3) gm/dl Albumin (3.4-5.0) gm/dl Globulin (2.5-4.0) gm/dl Albumin/Globulin Ratio (0.9-2) TSH (0.300-4.500) uIu/ml Salicylates (3.0-30) mg/dl Acetaminophen (10-30) ug/ml Ethyl Alcohol mg/dL (<10.0) mg/dl SARS-CoV-2, RNA, NAAT (NEGATIVE) Administered Medications Discontinued Medications Sodium Chloride (Nss 1000ml) 1,000 mls @ 999 mls/hr IV .Q1H1M ONE Stop: 03/02/22 10:12 Last Infusion: 03/02/22 10:58 Dose: 0 mls/hr Documented by: [id number] Admin: 03/02/22 09:38 Dose: 999 mls/hr Documented by: [id number] Ioversol (Optiray 320 125ml) 120 ml IV ONCE ONE Stop: 03/02/22 09:36 Last Admin: 03/02/22 09:36 Dose: 120 ml Documented by: [id number] Lorazepam (Lorazepam 1 Mg Tab) 1 mg SL NOW STA Stop: 03/02/22 07:53 Last Admin: 03/02/22 07:56 Dose: 1 mg Documented by: [id number] Nicotine (Nicotine 14 Mg/24 Hr Patch) 14 mg TD NOW STA Stop: 03/02/22 07:58 Last Admin: 03/02/22 08:03 Dose: Not Given Documented by: [id number] Imaging Data Radiologist's Impression: Chest CTA 03/02/22 09:11 CT angio chest PE protocol CLINICAL HISTORY: tachycardia, +dimer, breast CA hx COMPARISON STUDY: Portable chest from 02/27/2022 CT DOSE: 381.50 mGycm TECHNIQUE: CT Angio of the chest was performed.followed by image post processing with coronal, and sagittal MIP reformats. Contrast Volume: Optiray 320, 120 ml FINDINGS: Vasculature: There is homogeneous perfusion of the pulmonary vasculature bilaterally. No intraluminal filling defects or evidence for pulmonary embolus is seen. Airway: The airway is clear. No endobronchial lesion is identified. Lungs: There is minimal atelectasis within the lateral lingular segment. The lungs are otherwise clear of acute alveolar opacities, air bronchograms or pulmonary nodules. Pleura: There is no evidence for pleural effusion. There is no evidence for pneumothorax. Mediastinum: There is no evidence for pathologic adenopathy. The heart size is within normal limits. The thoracic aorta is within normal limits. There is no evidence for pericardial effusion. Upper abdomen:The adrenal glands are normal bilaterally. Osseous structures: There is no acute osseous pathology. Impression: 1. No CTA evidence for pulmonary embolus. 2. No acute chest disease. 3. Minimal lingular atelectasis accounting for the density seen on the chest radiograph. ACT 112: Negative or not required by law. Electronically signed by: Emil Vences M.D. 03/02/2022 9:47 AM Discharge Plan Visit Data Chief Complaint: Mental Health Evaluation Stated Complaint: SUICIDAL THOUGHTS ED Provider: Yadiel Perry Discharge Problem: Suicidal ideation, Tremor, Tachycardia, Mood disorder, Anxiety Patient Disposition: Admitted As Inpatient Discharge Instructions Interventions: ED Discharge Assessment Last Done: 03/02/22 11:40
[2022-03-02 08:28] LABS: Albumin Globulin Ratio 1.6 (0.9-2); Albumin Level 4.5 gm/dl (3.4-5.0); BUN Creatinine Ratio 10.7 (10-20); Bilirubin,Total 0.4 mg/dl (0.2-1.0); Calcium 9.6 mg/dl (8.5-10.1); Creatinine Clr Calc Pharmacy 42.7 ml/min; Est GFR (African American) 60.5 ml/min; Est GFR (Non-African American) 52.2 ml/min; Globulin 2.8 gm/dl (2.5-4.0); Potassium 4.7 mmol/L (3.5-5.1); Total Protein 7.3 gm/dl (6.0-8.3)
[2022-03-02 08:32] LABS: Acetaminophen < 3 ug/ml (10-30); Salicylate < 3.0 mg/dl (3.0-30)
[2022-03-02 08:43] LABS: Appearance Urine Clear (Clear); Bacteria Urine Automated Negative (Negative); Bilirubin Urine Negative (Negative); Blood Urine Negative (Negative); Color Urine Yellow; Glucose Urine UA Negative (Negative); Ketones Urine Negative (Negative); Leukocyte Esterase Urine Trace (Negative); Nitrite Urine Negative (Negative); Protein Urine Negative (Negative); RBC Urine Automated 0-4 /hpf (0-4); Specific Gravity Urine 1.005 (1.000-1.030); Urobilinogen Urine Negative (Negative); pH Urine 6.5 (4.5-7.5)
[2022-03-02 09:07] LABS: D Dimer 580 ug/L FEU (0-500)
[2022-03-02 09:10] LABS: Amphetamines+Metham, Urine Neg (Neg); Barbiturates, Urine Neg (Neg); Benzodiazepine, Urine Neg (Neg); Cocaine, Urine Neg (Neg); MDMA (Ecstacy), Urine Neg (Neg); Methadone, Urine Neg (Neg); Opiate, Urine Neg (Neg); Phencyclidine, Urine Neg (Neg)
[2022-03-02] MEDS ORDERED: SODIUM CHLORIDE 0.9% 1000ML 1,000 ML IV ONE (09:12)
[2022-03-02] MEDS ORDERED: OPTIRAY 320 125ml IV ONE (09:35)
--- NOTE | 2022-03-02 09:48 | CT Scan Report ---
CT angio chest PE protocol CLINICAL HISTORY: tachycardia, +dimer, breast CA hx COMPARISON STUDY: Portable chest from 02/27/2022 CT DOSE: 381.50 mGycm TECHNIQUE: CT Angio of the chest was performed.followed by image post processing with coronal, and s agittal MIP reformats. Contrast Volume: Optiray 320, 120 ml FINDINGS: Vasculature: There is homogeneous perfusion of the pulmonary vasculature bilaterally. No intraluminal filling defects or evidence for pulmonary embolus is seen. Airway: The airway is clear. No endobronchial lesion is identified. Lungs: There is minimal atelectasis within the lateral lingular segment. The lungs are otherwise roger r of acute alveolar opacities, air bronchograms or pulmonary nodules. Pleura: There is no evidence for pleural effusion. There is no evidence for pneumothorax. Mediastinum: There is no evidence for pathologic adenopathy. The heart size is within normal limits. The thoracic aorta is within normal limits. There is no evidence for pericardial effusion. Upper abdomen:The adrenal glands are normal bilaterally. Osseous structures: There is no acute osseous pathology. Impression: 1. No CTA evidence for pulmonary embolus. 2. No acute chest disease. 3. Minimal lingular atelectasis accounting for the density seen on the chest radiograph. ACT 112: Negative or not required by law. Electronically signed by: Emil Vences M.D. 03/02/2022 9:47 AM
[2022-03-02 10:22] LABS: Troponin I High Sensitivity 5.7 pg/ml (0-14)
[2022-03-02] MEDS ORDERED: BISMUTH SUBSALICYLATE LIQD 236 ML PO PRN (11:10)
[2022-03-02] MEDS ORDERED: SODIUM CHLORIDE 0.65% NA SOLN 45 ML (OCEAN) PRN (11:10)
[2022-03-02] MEDS ORDERED: hydrOXYzine HCl 25 MG TAB PO PRN ×2 (11:10)
[2022-03-02] MEDS ORDERED: ACETAMINOPHEN 325 MG TAB PO PRN (11:10)
[2022-03-02] MEDS ORDERED: ALUMINUM/MAGNESIUM SUSP 30 ML UDC PO PRN (11:10)
[2022-03-02] MEDS ORDERED: MAGNESIUM HYDROXIDE SUSP 30 ML UDC PO PRN (11:10)
[2022-03-02] MEDS ORDERED: LORazepam 0.5 MG TAB PO PRN (12:07)
--- NOTE | 2022-03-02 14:06 | Electrocardiogram Report ---
Test Reason : Blood Pressure : / mmHG Vent. 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
--- NOTE | 2022-03-02 14:42 | History & Physical ---
Date of Service March 02, 2022 Impression / Recommendations Impression 61 yo female with a history of tremor and atypical depression with severe anxiety if not robby in 2019 following/during course of chemo for breast CA. Currently presents overwhelmed with inability to function at home despite multiple outpatient medication trials. She is expressing suicidal ideation with a plan to OD on her medications. MNPR due to severity of anxiety/inability to tolerate roommate. (1) Major depression, recurrent: The patient was admitted to the [facility] ([facility] mental health unit) on q15 min checks (behavioral with suicide precautions) for safety. The patient will participate in group, recreational, and milieu therapies and will be offered additional individual and family sessions as clinically appropriate. The patient's anxiety is quite high, will get records but she doesn't really describe periods of robby, will treat for depression with severe anxiety. Discussed with patient that lupus may be some contributing factor to non-respo nse/recurrent depression as an inflammatory condition. Risks/benefits/alternatives reviewed re: her current medications. Discussion included but was not limited to fall risk, combined sedation, intermediate dependence, need for metabolic and TD monitoring. She is agreeable to continue her current sleep meds, split dosing of Zyprexa (will try 5 mg BID initiallY) and Ativan 1 mg BID with meals (scheduled for now). Inventory Assets Strengths: help seeking, family support Needs: coping skills, decrease med focus Suicide Risk Level Suicide Risk Level: High (q15 min suicide checks) Suicide Risk Level Comments: active SI with plan, no intent on unit, no hx of attempts and able to express needs to staff. Risk Factors Assessment : Yes Mental Health Diagnoses: Yes Substance Use Disorders: No Protective Factors Assessment Employed: No Psychiatric History Identifying Data MARYELLEN CAPPS is a 61-year-old F who currently lives in [place], has a history of depression, possibly bipolar, and was admitted on 03/02/22 11:11 on a 201 voluntary commitment for SI with plan to OD on pills. Chief Complaint "I'm ready to just give up". History of Present Illness The patient is known to me from an inpatient consultation in Aug 2021 when she was being treated on the medical floor for AMS/stroke w/u. Her presentation is similar in that she is quite emotional and focussed on her medications not working and her tremor. [place] who she reports refused to drive her back here. She has relied on her elderly mother in the past for transportation to chemo. She has 2 adult children, 1 of whom lives in the home who "doesn't do much". Her anxiety and tremor are unchanged despite multiple medication trials (recently Abilify, Latuda, then back to Zyprexa last week). She was seen in the ED and reports coming here as prefers the care. She reports not doing much in the way of activity due to her depression, doesn't go out much (unclear if truly agoraphobia), and low energy. Her hygiene (showering) has decreased. She decided to come for assessment as dealing with "all this for so long that no one care anymore" and had thoughts to end her life by overdosing on medication. She feels that perhaps her tremor is related to her past chemo and worries frequently that she has Parkinson's though reportedly work up has been negative. 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 Her sleep is also fragmented by having 5 dogs that go out sometimes multiple times a night. She is hyperalert around the guamanian dill as he attacked 2 of her dogs and they had to be put down a few years ago. She states another things that creates anxiety for her is her appearance as she had to get dentures after chemo and has always been focussed on her appearance. She reports recently having a sleep study that rule out significant apnea and she slept well on trazodone 200 mg hs, Restoril 30 mg and Zyprexa but "there were no dogs." The best she has done was in Aug-Nov. At that time her psych med regimen was rather simple at 5 mg BID. She had an EKG in the ED for sinus tachy related to her anxiety. Past Psychiatric History Previous Psych History: saw Claudia Rascon in the past for therapy Current Psychiatric Diagnosis: Depression Outpatient Services: [facility] in Dr. Mcconnell's office Previous Psych Admissions: [facility] December 2018 History of Previous Suicide Attempt: No Past Medication Trials: anti anxiety: Klonopin, Buspar, temazepam, propranolol other: Sonata, trazodone, Ritalin, Vyvanse, Cogentin antidepressants: Wellbutrin, Remeron, Cymbalta, Viibryd, Prozac atypicals: Seroquel, Vraylar, Zyprexa, Latuda, Abilify Allergies Allergy/AdvReac Type Severity Reaction Status Date / Time sulfamethoxazole Allergy Severe Anaphylaxis Verified 02/18/22 10:23 [From Bactrim] trimethoprim [From Bactrim] Allergy Severe Anaphylaxis Verified 02/18/22 10:23 oxycodone Allergy Intermediate ITCHING Verified 02/18/22 10:23 Penicillins AdvReac Unknown NOT Verified 02/18/22 10:23 EFFECTIVE Home Medications Medication Instructions Recorded Confirmed Type DOTERRA ESSENTIAL 2 dose PO QAM #0 08/25/20 02/18/22 History ascorbic acid (vitamin C) 500 mg 1,000 mg PO DAILY cap 01/27/21 02/18/22 History capsule calcium carbonate 600 mg calcium 600 mg PO DAILY 01/27/21 02/18/22 History (1,500 mg) tablet cholecalciferol (vitamin D3) 25 25 mcg PO DAILY 01/27/21 02/18/22 History mcg (1,000 unit) capsule folic acid 400 mcg tablet 0.4 mg PO DAILY 01/27/21 02/18/22 History magnesium oxide 250 mg PO DAILY 01/27/21 02/18/22 History mecobalamin (vitamin B12) 5,000 2,500 mcg PO DAILY tab 01/27/21 02/18/22 History mcg disintegrating tablet multivitamin 1 tab PO DAILY 08/19/21 02/18/22 History aspirin 81 mg tablet,delayed 81 mg PO DAILY 02/18/22 02/18/22 History release benztropine 1 mg tablet 1 mg PO DAILY 02/18/22 03/02/22 History cariprazine 3 mg capsule 3 mg PO DAILY 02/18/22 02/18/22 History letrozole 2.5 mg tablet 2.5 mg PO DAILY 02/18/22 02/18/22 History rosuvastatin 10 mg tablet 10 mg PO DAILY 02/18/22 02/18/22 History temazepam 30 mg capsule (Restoril) 30 mg PO .QHS cap 02/18/22 03/02/22 History trazodone 100 mg tablet 100 mg PO DAILY 02/18/22 03/02/22 History vilazodone 10 mg tablet (Viibryd) 10 mg PO DAILY 02/18/22 02/18/22 History Ativan 1 tab PO BID 03/02/22 03/02/22 History Family History Family History of: None Alcohol History Hx of Alcohol Use Over the Past 12 Months: No AUDIT Total Score: 0 Smoking Use Have You Smoked or Used Tobacco Products in the Last 30 Days: Yes tobacco type: cigarettes Smoking Status: Current every day smoker Smoking packs per day: 0.5 Substance History Hx of Prescription Med Misuse Over the Past 12 Months: No Hx of Over the Counter Med Misuse Over the Past 12 Months: No Hx of Inhalent Misuse Over the Past 12 Months: No Hx of Organic Substance Use Over the Past 12 Months: No Hx of Illegal Substances/Street Drug Use Over Past 12 Months: No Problems as a Result of Past Substance Use: None Identified Personal History Living Arrangements: Home 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) Marital Status: Number Of Children: 2 Beliefs That Will Affect Care: None Hx Legal Problems: No Patient History Medical History Anxiety Cervical stenosis of spinal canal Depression Diverticulosis Glaucoma History of chemotherapy 08/05/20-01/12/21 4 cycles Cyclophosphamide/Adriamycin/Taxol, 12 cycles Taxol Insomnia Melanoma Port-A-Cath in place Retinopathy Treated with laser photocoagulation Systemic lupus erythematosus Surgical History History of back surgery Laminectomy - L4/5 - spinal fusion May 2020 History of bunionectomy Right History of carpal tunnel surgery Right History of neck surgery Cervical spine surgery 2016 Hx of colonoscopy Previous section X 2 S/P LASIK surgery S/P tonsillectomy Status post left breast lumpectomy With SLN biopsy on 06/16/2020 Family History Mother Myocardial infarction Arthritis Father , at 74yo Myocardial infarction Hx of CABG Diabetes Prostate cancer Hypertension Brother Hypertension Son No problems noted. Son No problems noted. 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 Beliefs That Will Affect Care: None marital status: Current Living Situation: Spouse current occupational status: retired current occupation: [employer] How many Children do You have: 2 Feels Safe at Home: Yes caffeine: Yes (1 can diet coke/day) during the past year weight has: remained stable Assistive Devices: None Review of Systems Review of Systems: All systems reviewed & are unremarkable except as noted in HPI & below Physical Exam Psychiatric: Orientation: alert and oriented x 3 Apperance: appropriately groomed Eye Contact: good eye contact Motor Behavior: + tremor Speech: normal rate/rhythm/volume of speech (though hyperverbal at times) Affect: + depressed affect and + anxious affect Mood: + depressed mood and + anxious mood Thought Process: + circumstantial thought process and + perseveration Thought Content: reality based without delusions Suicidal Thoughts: denies suicidal intent (on unit); + reports suicidal thoughts and + reports suicidal plan Homicidal Thoughts: denies homicidal thoughts Hallucinations: no auditory hallucinations and no visual hallucinations Cognition: attention grossly intact and language grossly intact Estimated Intelligence: consistent with education level Insight: + limited insight Judgement: + limited judgement Vital Signs (Past 24 Hours): Last Vital Signs Temp 37.2 C 03/02/22 12:06 Pulse 105 H 03/02/22 14:36 Resp 18 03/02/22 12:06 BP 126/85 03/02/22 12:06 Pulse Ox 98 03/02/22 12:06 Exam Statement: A physical exam was performed in the ED by Dr. Perry for the purposes of medical clearance. I accept that physical as correct and adequate for the purposes of the inpatient physical exam. Results & Data ([facility]) Laboratory Results Laboratory Results - last 24 hr 03/02/22 03/02/22 03/02/22 07:35 07:38 07:38 WBC 8.01 RBC 4.06 L Hgb 13.3 Hct 39.6 MCV 97.5 MCH 32.8 MCHC 33.6 RDW Std Deviation 53.3 H RDW Coeff of Lore 14.9 H Plt Count 288 MPV 9.8 Immature Gran % (Auto) 0.1 Neut % (Auto) 72.6 Lymph % (Auto) 17.1 [place] % (Auto) 9.1 Eos % (Auto) 0.9 Baso % (Auto) 0.2 Neut # (Auto) 5.81 Lymph # (Auto) 1.37 [place] # (Auto) 0.73 H Eos # (Auto) 0.07 Baso # (Auto) 0.02 Immature Gran # (Auto) 0.01 D-Dimer Sodium 140 Potassium 4.7 Chloride 106 Carbon Dioxide 27 Anion Gap 7 BUN 12 Creatinine 1.12 Est Cr Clr Drug Dosing 42.7 Est GFR ( Amer) 60.5 Est GFR (Non-Af Amer) 52.2 BUN/Creatinine Ratio 10.7 Glucose 134 H Calcium 9.6 Total Bilirubin 0.4 AST 20 ALT 15 Alkaline Phosphatase 74 Troponin I High Sens 5.7 Total Protein 7.3 Albumin 4.5 Globulin 2.8 Albumin/Globulin Ratio 1.6 TSH Urine Color Urine Appearance Urine pH Ur Specific [place] Urine Protein Urine Glucose (UA) Urine Ketones Urine Blood Urine Nitrite Urine Bilirubin Urine Urobilinogen Ur Leukocyte Esterase Urine WBC (Auto) Urine RBC (Auto) U Hyaline Cast (Auto) U Epithel Cells (Auto) Urine Bacteria (Auto) Salicylates Urine Opiates Screen Ur Methadone, Qual Acetaminophen Urine Barbiturates Ur Phencyclidine (PCP) U Amphetamin/Meth Scrn MDMA (Ecstasy) Screen U Benzodiazepines Scrn Ur Cocaine Metabolite U Marijuana (THC) Screen Ethyl Alcohol mg/dL SARS-CoV-2, RNA, NAAT NEGATIVE 03/02/22 03/02/22 03/02/22 07:38 07:38 07:38 WBC RBC Hgb Hct MCV MCH MCHC RDW Std Deviation RDW Coeff of Lore Plt Count MPV Immature Gran % (Auto) Neut % (Auto) Lymph % (Auto) [place] % (Auto) Eos % (Auto) Baso % (Auto) Neut # (Auto) Lymph # (Auto) [place] # (Auto) Eos # (Auto) Baso # (Auto) Immature Gran # (Auto) D-Dimer Sodium Potassium Chloride Carbon Dioxide Anion Gap BUN Creatinine Est Cr Clr Drug Dosing Est GFR ( Amer) Est GFR (Non-Af Amer) BUN/Creatinine Ratio Glucose Calcium Total Bilirubin AST ALT Alkaline Phosphatase Troponin I High Sens Total Protein Albumin Globulin Albumin/Globulin Ratio TSH 0.824 Urine Color Urine Appearance Urine pH Ur Specific [place] Urine Protein Urine Glucose (UA) Urine Ketones Urine Blood Urine Nitrite Urine Bilirubin Urine Urobilinogen Ur Leukocyte Esterase Urine WBC (Auto) Urine RBC (Auto) U Hyaline Cast (Auto) U Epithel Cells (Auto) Urine Bacteria (Auto) Salicylates < 3.0 L Urine Opiates Screen Ur Methadone, Qual Acetaminophen < 3 L Urine Barbiturates Ur Phencyclidine (PCP) U Amphetamin/Meth Scrn MDMA (Ecstasy) Screen U Benzodiazepines Scrn Ur Cocaine Metabolite U Marijuana (THC) Screen Ethyl Alcohol mg/dL < 10.0 SARS-CoV-2, RNA, NAAT 03/02/22 03/02/22 03/02/22 07:38 Unknown Unknown WBC RBC Hgb Hct MCV MCH MCHC RDW Std Deviation RDW Coeff of Lore Plt Count MPV Immature Gran % (Auto) Neut % (Auto) Lymph % (Auto) [place] % (Auto) Eos % (Auto) Baso % (Auto) Neut # (Auto) Lymph # (Auto) [place] # (Auto) Eos # (Auto) Baso # (Auto) Immature Gran # (Auto) D-Dimer 580 H* Sodium Potassium Chloride Carbon Dioxide Anion Gap BUN Creatinine Est Cr Clr Drug Dosing Est GFR ( Amer) Est GFR (Non-Af Amer) BUN/Creatinine Ratio Glucose Calcium Total Bilirubin AST ALT Alkaline Phosphatase Troponin I High Sens Total Protein Albumin Globulin Albumin/Globulin Ratio TSH Urine Color Yellow Urine Appearance Clear Urine pH 6.5 Ur Specific [place] 1.005 Urine Protein Negative Urine Glucose (UA) Negative Urine Ketones Negative Urine Blood Negative Urine Nitrite Negative Urine Bilirubin Negative Urine Urobilinogen Negative Ur Leukocyte Esterase Trace H Urine WBC (Auto) 1-5 Urine RBC (Auto) 0-4 U Hyaline Cast (Auto) 1-5 U Epithel Cells (Auto) 5-10 H Urine Bacteria (Auto) Negative Salicylates Urine Opiates Screen Neg Ur Methadone, Qual Neg Acetaminophen Urine Barbiturates Neg Ur Phencyclidine (PCP) Neg U Amphetamin/Meth Scrn Neg MDMA (Ecstasy) Screen Neg U Benzodiazepines Scrn Neg Ur Cocaine Metabolite Neg U Marijuana (THC) Screen Neg Ethyl Alcohol mg/dL SARS-CoV-2, RNA, NAAT Current Inpatient Medications Current Inpatient Medications: Current Inpatient Medications Acetaminophen (Acetaminophen 325 Mg Tab) 650 mg PO Q4H PRN PRN Reason: Headache or Minor Fever Stop: 04/01/22 11:09 Al Hydrox/Mg Hydrox/Simethicone (Aluminum/Magnesium Susp 30 Ml Udc) 30 ml PO Q4H PRN PRN Reason: GI Upset Stop: 04/01/22 11:09 Ascorbic Acid (Ascorbic Acid 500 Mg Tab) 1,000 mg PO DAILY WINSTON Stop: 04/02/22 08:59 Aspirin (Aspirin 81 Mg Ectab) 81 mg PO DAILY W[place]ON Stop: 04/02/22 08:59 Bismuth Subsalicylate (Bismuth Subsalicylate Liqd 236 Ml) 15 ml PO PRN PRN PRN Reason: Loose Stool Stop: 04/01/22 11:09 Calcium Carbonate (Calcium Carbonate 1250mg Tab) 1,250 mg PO DAILY WINSTON Stop: 04/02/22 08:59 Cyanocobalamin (Cyanocobalamin (B-12) 2,500 Mcg Tablet) 2,500 mcg SL DAILY WINSTON Stop: 04/02/22 08:59 Folic Acid (Folic Acid 400 Mcg Tab) 400 mcg PO DAILY WINSTON Stop: 04/02/22 08:59 Hydroxyzine HCl (Hydroxyzine Hcl 25 Mg Tab) 50 mg PO HSZ PRN PRN Reason: Insomnia Stop: 04/01/22 11:09 Hydroxyzine HCl (Hydroxyzine Hcl 25 Mg Tab) 25 mg PO Q4H PRN PRN Reason: Anxiety Stop: 04/01/22 11:09 Letrozole (Letrozole 2.5 Mg Tab) 2.5 mg PO DAILY W[place]ON Stop: 04/02/22 08:59 Lorazepam (Lorazepam 0.5 Mg Tab) 0.5 mg PO BID PRN PRN Reason: anxiety Stop: 04/01/22 12:06 Magnesium Hydroxide (Magnesium Hydroxide Susp 30 Ml Udc) 30 ml PO DAILY PRN PRN Reason: Constipation Stop: 04/01/22 11:09 Magnesium Oxide (Magnesium Oxide 400 Mg Tab) 400 mg PO DAILY WINSTON Stop: 04/02/22 08:59 Miscellaneous (Remove Nicoderm Patch) 1 ea N/A DAILY@0859 [place]ON Stop: 04/01/22 08:58 Multivitamins (Multivitamin Tab) 1 tab PO DAILY WINSTON Stop: 04/02/22 08:59 Rosuvastatin Calcium (Rosuvastatin Calcium 10 Mg Tab) 10 mg PO DAILY WINSTON Stop: 04/02/22 08:59 Sodium Chloride (Sodium Chloride 0.65% Na Soln 45 Ml ([place])) 1 - 2 sprays NA PRN PRN PRN Reason: Nasal Dryness/Congestion Stop: 04/01/22 11:09 Vitamin D (Cholecalciferol 1,000 Units 25 Mcg Tab) 1,000 units PO DAILY WINSTON Stop: 04/02/22 08:59
[2022-03-02] MEDS: LORazepam 1 MG TAB PO SCH (17:24)
[2022-03-02] MEDS: traZODone HCL 100 MG TAB PO SCH (21:21)
[2022-03-02] MEDS: TEMAZEPAM 15 MG CAPSULE PO SCH (21:21)
[2022-03-02] MEDS: OLANZapine 5 MG TABLET PO SCH (21:21)
[2022-03-03] MEDS: LETROZOLE 2.5 MG TAB PO SCH (08:11)
[2022-03-03] MEDS: ROSUVASTATIN CALCIUM 10 MG TAB PO SCH (08:12)
[2022-03-03] MEDS: MULTIVITAMIN TAB PO SCH (08:12)
[2022-03-03] MEDS: ASPIRIN 81 MG ECTAB PO SCH (08:12)
[2022-03-03] MEDS: OLANZapine 5 MG TABLET PO SCH (08:12)
[2022-03-03] MEDS: FOLIC ACID 400 MCG TAB PO SCH (08:12)
[2022-03-03] MEDS: LORazepam 1 MG TAB PO SCH ×2 (08:12→17:20)
[2022-03-03] MEDS: CYANOCOBALAMIN (B-12) 2,500 MCG TABLET SL SCH (08:12)
[2022-03-03] MEDS: ASCORBIC ACID 500 MG TAB PO SCH (08:13)
[2022-03-03] MEDS: CALCIUM CARBONATE 1250MG TAB PO SCH (08:14)
[2022-03-03] MEDS: CHOLECALCIFEROL 1,000 UNITS 25 MCG TAB PO SCH (08:14)
[2022-03-03] MEDS: MAGNESIUM OXIDE 400 MG TAB PO SCH (08:15)
--- NOTE | 2022-03-03 13:59 | Psychiatric Progress Note ---
Date of Service March 03, 2022 Impression / Recommendations Impression 61 yo female with a history of tremor and atypical depression with severe anxiety if not robby in 2019 following/during course of chemo for breast CA. Currently presents overwhelmed with inability to function at home despite multiple outpatient medication trials. She is expressing suicidal ideation with a plan to OD on her medications. MNPR due to severity of anxiety/inability to tolerate roommate. 03/03/22: minimal improvement (1) Major depression, recurrent: 03/03/22: The patient agreed to increase Zyprexa to 7.5 mg BID (previous dose but split), monitor tachy as I still feel she would benefit from a beta eileen, staff to gain collateral from . 03/02/22: The patient was admitted to the [facility] ([facility] unit) on q15 min checks (behavioral with suicide precautions) for safety. The patient will participate in group, recreational, and milieu therapies and will be offered additional individual and family sessions as clinically appropriate. The patient's anxiety is quite high, will get records but she doesn't really describe periods of robby, will treat for depression with severe anxiety. Discussed with patient that lupus may be some contributing factor to non- response/recurrent depression as an inflammatory condition. Risks/benefits/alternatives reviewed re: her current medications. Discussion included but was not limited to fall risk, combined sedation, correction dependence, need for metabolic and TD monitoring. She is agreeable to continue her current sleep meds, split dosing of Zyprexa (will try 5 mg BID initiallY) and Ativan 1 mg BID with meals (scheduled for now). Inventory Assets Strengths: help seeking, family support Needs: coping skills, decrease med focus Suicide Risk Level Suicide Risk Level: High (q15 min suicide checks) Suicide Risk Level Comments: active SI with plan, no intent on unit, no hx of attempts and able to express needs to staff. Risk Factors Assessment : Yes Do You Have Access To A Gun?: No Mental Health Diagnoses: Yes Substance Use Disorders: No Protective Factors Assessment Employed: No Interval History Identifying Information MARYELLEN CAPPS is a 61-year-old F who currently lives in [place], has a history of depression, possibly bipolar, and was admitted on 03/02/22 11:11 on a 201 voluntary commitment for SI with plan to OD on pills. Chief Complaint "so where do I go from here? What do I do?". Review of Systems Sleep Information Sleep Comments: pt given restoril per rn. pt on q-15 minute checks Meal Information Percent Meal Consumed - Breakfast: 100 Percent Meal Consumed - Lunch: 100 Percent Meal Consumed - Dinner: 100 Nutrition Comment: pt. had lunch in ED prior to admission Subjective Subjective Patient was seen & assessed and interval progress reviewed with nursing and social work. Patient states it took her some time to fall asleep but slept well, woke up feeling anxious/tremulous. Remains tachy related to anxiety, resistant to retrial of a beta eileen. Alot of all or nothing thinking re: her family, hasn't told she is here. Physical Exam Psychiatric Orientation: alert and oriented x 3 Apperance: appropriately groomed Eye Contact: good eye contact Motor Behavior: + tremor Speech: normal rate/rhythm/volume of speech (though hyperverbal at times) Affect: + depressed affect and + anxious affect Mood: + depressed mood and + anxious mood Thought Process: + circumstantial thought process and + perseveration Thought Content: reality based without delusions Suicidal Thoughts: denies suicidal plan and denies suicidal intent (on unit); + reports suicidal thoughts ("you know, if I wasn't here.") Homicidal Thoughts: denies homicidal thoughts Hallucinations: no auditory hallucinations and no visual hallucinations Cognition: attention grossly intact and language grossly intact Estimated Intelligence: consistent with education level Insight: + limited insight Judgement: + limited judgement Vital Signs (Past 24 Hours) Last Vital Signs Temp 36.9 C 03/03/22 06:50 Pulse 121 H 03/03/22 06:51 Resp 16 03/03/22 06:50 BP 129/92 03/03/22 06:51 Pulse Ox 98 03/02/22 12:06 Results & Data ([facility]) Current Inpatient Medications Current Inpatient Medications: Current Inpatient Medications Acetaminophen (Acetaminophen 325 Mg Tab) 650 mg PO Q4H PRN PRN Reason: Headache or Minor Fever Stop: 04/01/22 11:09 Al Hydrox/Mg Hydrox/Simethicone (Aluminum/Magnesium Susp 30 Ml Udc) 30 ml PO Q4H PRN PRN Reason: GI Upset Stop: 04/01/22 11:09 Ascorbic Acid (Ascorbic Acid 500 Mg Tab) 1,000 mg PO DAILY W[place]ON Stop: 04/02/22 08:59 Last Admin: 03/03/22 08:13 Dose: 1,000 mg Documented by: Aspirin (Aspirin 81 Mg Ectab) 81 mg PO DAILY WINSTON Stop: 04/02/22 08:59 Last Admin: 03/03/22 08:12 Dose: 81 mg Documented by: Bismuth Subsalicylate (Bismuth Subsalicylate Liqd 236 Ml) 15 ml PO PRN PRN PRN Reason: Loose Stool Stop: 04/01/22 11:09 Calcium Carbonate (Calcium Carbonate 1250mg Tab) 1,250 mg PO DAILY WINSTON Stop: 04/02/22 08:59 Last Admin: 03/03/22 08:14 Dose: 1,250 mg Documented by: Cyanocobalamin (Cyanocobalamin (B-12) 2,500 Mcg Tablet) 2,500 mcg SL DAILY W[place]ON Stop: 04/02/22 08:59 Last Admin: 03/03/22 08:12 Dose: 2,500 mcg Documented by: Folic Acid (Folic Acid 400 Mcg Tab) 400 mcg PO DAILY WINSTON Stop: 04/02/22 08:59 Last Admin: 03/03/22 08:12 Dose: 400 mcg Documented by: Hydroxyzine HCl (Hydroxyzine Hcl 25 Mg Tab) 50 mg PO HSZ PRN PRN Reason: Insomnia Stop: 04/01/22 11:09 Hydroxyzine HCl (Hydroxyzine Hcl 25 Mg Tab) 25 mg PO Q4H PRN PRN Reason: Anxiety Stop: 04/01/22 11:09 Letrozole (Letrozole 2.5 Mg Tab) 2.5 mg PO DAILY WINSTON Stop: 04/02/22 08:59 Last Admin: 03/03/22 08:11 Dose: 2.5 mg Documented by: Lorazepam (Lorazepam 1 Mg Tab) 1 mg PO BIDM W[place] Stop: 04/01/22 17:44 Last Admin: 03/03/22 08:12 Dose: 1 mg Documented by: Magnesium Hydroxide (Magnesium Hydroxide Susp 30 Ml Udc) 30 ml PO DAILY PRN PRN Reason: Constipation Stop: 04/01/22 11:09 Magnesium Oxide (Magnesium Oxide 400 Mg Tab) 400 mg PO DAILY WINSTON Stop: 04/02/22 08:59 Last Admin: 03/03/22 08:15 Dose: 400 mg Documented by: Miscellaneous (Remove Nicoderm Patch) 1 ea N/A DAILY@0859 W[place] Stop: 04/01/22 08:58 Last Admin: 03/03/22 09:32 Dose: Not Given Documented by: Multivitamins (Multivitamin Tab) 1 tab PO DAILY WINSTON Stop: 04/02/22 08:59 Last Admin: 03/03/22 08:12 Dose: 1 tab Documented by: Olanzapine (Olanzapine 2.5 Mg Tab) 7.5 mg PO BID WINSTON Stop: 04/02/22 20:59 Rosuvastatin Calcium (Rosuvastatin Calcium 10 Mg Tab) 10 mg PO DAILY W[place]ON Stop: 04/02/22 08:59 Last Admin: 03/03/22 08:12 Dose: 10 mg Documented by: Sodium Chloride (Sodium Chloride 0.65% Na Soln 45 Ml ([place])) 1 - 2 sprays NA PRN PRN PRN Reason: Nasal Dryness/Congestion Stop: 04/01/22 11:09 Temazepam (Temazepam 15 Mg Capsule) 30 mg PO HS WINSTON Stop: 04/01/22 21:59 Last Admin: 03/02/22 21:21 Dose: 30 mg Documented by: Trazodone HCl (Trazodone Hcl 100 Mg Tab) 200 mg PO HS WINSTON Stop: 04/01/22 21:59 Last Admin: 03/02/22 21:21 Dose: 200 mg Documented by: Vitamin D (Cholecalciferol 1,000 Units 25 Mcg Tab) 1,000 units PO DAILY WINSTON Stop: 04/02/22 08:59 Last Admin: 03/03/22 08:14 Dose: 1,000 units Documented by: Mental Health & Subst Abuse Tx Therapist Name of Therapist: No Munitions Worker Name of Munitions Worker: No Post Discharge Appointments Primary Care Physician Name Of Family Doctor: Pete
[2022-03-03] MEDS: traZODone HCL 100 MG TAB PO SCH (20:55)
[2022-03-03] MEDS: TEMAZEPAM 15 MG CAPSULE PO SCH (20:55)
[2022-03-03] MEDS: OLANZAPINE 2.5 MG TAB PO SCH (20:56)
[2022-03-04] MEDS: CHOLECALCIFEROL 1,000 UNITS 25 MCG TAB PO SCH (08:48)
[2022-03-04] MEDS: MAGNESIUM OXIDE 400 MG TAB PO SCH (08:48)
[2022-03-04] MEDS: ASCORBIC ACID 500 MG TAB PO SCH (08:48)
[2022-03-04] MEDS: MULTIVITAMIN TAB PO SCH (08:48)
[2022-03-04] MEDS: LETROZOLE 2.5 MG TAB PO SCH (08:48)
[2022-03-04] MEDS: OLANZAPINE 2.5 MG TAB PO SCH ×2 (08:48→21:10)
[2022-03-04] MEDS: CALCIUM CARBONATE 1250MG TAB PO SCH (08:48)
[2022-03-04] MEDS: FOLIC ACID 400 MCG TAB PO SCH (08:48)
[2022-03-04] MEDS: ROSUVASTATIN CALCIUM 10 MG TAB PO SCH (08:48)
[2022-03-04] MEDS: CYANOCOBALAMIN (B-12) 2,500 MCG TABLET SL SCH (08:48)
[2022-03-04] MEDS: ASPIRIN 81 MG ECTAB PO SCH (08:48)
[2022-03-04] MEDS: LORazepam 1 MG TAB PO SCH ×2 (08:49→13:33)
--- NOTE | 2022-03-04 10:38 | Psychiatric Progress Note ---
Date of Service March 04, 2022 Impression / Recommendations Impression 61 yo female with a history of tremor and atypical depression with severe anxiety if not robby in 2019 following/during course of chemo for breast CA. Currently presents overwhelmed with inability to function at home despite multiple outpatient medication trials. She is expressing suicidal ideation with a plan to OD on her medications. MNPR due to severity of anxiety/inability to tolerate roommate. 03/04/22: depression is improving, anxiety remains and is very med focussed. (1) Major depression, recurrent: 03/04/22: will shift am meds earlier as she awakens between 5-7 am at home. She is now agreeable to a full trial of a beta eileen (previously 10 mg propranolol). Risks/benefits/alternatives reviewed propranolol for anxiety and tremor (tremor is not EPS). She agreed to 20 mg BID propranolol. She is requesting Ativan prn prior to her meeting with . 03/03/22: The patient agreed to increase Zyprexa to 7.5 mg BID (previous dose but split), monitor tachy as I still feel she would benefit from a beta eileen, staff to gain collateral from . 03/02/22: The patient was admitted to the [facility] ([facility] mental health unit) on q15 min checks (behavioral with suicide precautions) for safety. The patient will participate in group, recreational, and milieu therapies and will be offered additional individual and family sessions as clinically appropriate. The patient's anxiety is quite high, will get records but she doesn't really describe periods of robby, will treat for depression with severe anxiety. Discussed with patient that lupus may be some contributing factor to non- response/recurrent depression as an inflammatory condition. Risks/benefits/alternatives reviewed re: her current medications. Discussion included but was not limited to fall risk, combined sedation, group home dependence, need for metabolic and TD monitoring. She is agreeable to continue her current sleep meds, split dosing of Zyprexa (will try 5 mg BID initiallY) and Ativan 1 mg BID with meals (scheduled for now). Inventory Assets Strengths: help seeking, family support Needs: coping skills, decrease med focus Suicide Risk Level Suicide Risk Level: High (q15 min suicide checks) Suicide Risk Level Comments: active SI with plan, no intent on unit, no hx of attempts and able to express needs to staff. Risk Factors Assessment : Yes Do You Have Access To A Gun?: No Mental Health Diagnoses: Yes Substance Use Disorders: No Protective Factors Assessment Employed: No Interval History Identifying Information MARYELLEN CAPPS is a 61-year-old F who currently lives in [place], has a history of depression, possibly bipolar, and was admitted on 03/02/22 11:11 on a 201 voluntary commitment for SI with plan to OD on pills. Chief Complaint "I just wake up feeling so shaky". Review of Systems Sleep Information Total Hours of Sleep: 8 Sleep Comments: pt given restoril per rn. pt on q-15 minute checks Meal Information Percent Meal Consumed - Breakfast: 100 Percent Meal Consumed - Lunch: 100 Percent Meal Consumed - Dinner: 100 Nutrition Comment: pt. had lunch in ED prior to admission Subjective Subjective Patient was seen & assessed and interval progress reviewed with treatment team. The patient is somewhat anxious re: her meeting with her this afternoon. She slept better overnight. Remains med focussed. Discussed her tremor (which appears improved from admission) and tachy which are at least partially anxiety driven and contribute to her cycle of anxiety. She denies SI here but is still unsure how she would manage at home. She reports excessive chewing of ice when she is stressed and that "I'm still doing that so I know something is wrong." She denies any hx of pica other than the ice chewing, she is not anemic but was amenable to a iron panel. Physical Exam Psychiatric Orientation: alert and oriented x 3 Apperance: appropriately groomed Eye Contact: good eye contact Motor Behavior: + tremor Speech: normal rate/rhythm/volume of speech Affect: + depressed affect and + anxious affect Mood: + depressed mood and + anxious mood Thought Process: + circumstantial thought process and + perseveration Thought Content: reality based without delusions Suicidal Thoughts: denies suicidal thoughts, denies suicidal plan and denies suicidal intent (on unit) Homicidal Thoughts: denies homicidal thoughts Hallucinations: no auditory hallucinations and no visual hallucinations Cognition: attention grossly intact and language grossly intact Estimated Intelligence: consistent with education level Insight: + limited insight Judgement: + limited judgement Vital Signs (Past 24 Hours) Last Vital Signs Temp 36.3 C L 03/04/22 06:00 Pulse 94 H 03/04/22 06:39 Resp 16 03/04/22 06:00 BP 130/84 03/04/22 06:39 Pulse Ox 94 03/04/22 06:00 Results & Data ([facility]) Current Inpatient Medications Current Inpatient Medications: Current Inpatient Medications Acetaminophen (Acetaminophen 325 Mg Tab) 650 mg PO Q4H PRN PRN Reason: Headache or Minor Fever Stop: 04/01/22 11:09 Al Hydrox/Mg Hydrox/Simethicone (Aluminum/Magnesium Susp 30 Ml Udc) 30 ml PO Q4H PRN PRN Reason: GI Upset Stop: 04/01/22 11:09 Ascorbic Acid (Ascorbic Acid 500 Mg Tab) 1,000 mg PO DAILY WINSTON Stop: 04/02/22 08:59 Last Admin: 03/04/22 08:48 Dose: 1,000 mg Documented by: Aspirin (Aspirin 81 Mg Ectab) 81 mg PO DAILY WINSTON Stop: 04/02/22 08:59 Last Admin: 03/04/22 08:48 Dose: 81 mg Documented by: Bismuth Subsalicylate (Bismuth Subsalicylate Liqd 236 Ml) 15 ml PO PRN PRN PRN Reason: Loose Stool Stop: 04/01/22 11:09 Calcium Carbonate (Calcium Carbonate 1250mg Tab) 1,250 mg PO DAILY WINSTON Stop: 04/02/22 08:59 Last Admin: 03/04/22 08:48 Dose: 1,250 mg Documented by: Cyanocobalamin (Cyanocobalamin (B-12) 2,500 Mcg Tablet) 2,500 mcg SL DAILY WINSTON Stop: 04/02/22 08:59 Last Admin: 03/04/22 08:48 Dose: 2,500 mcg Documented by: Folic Acid (Folic Acid 400 Mcg Tab) 400 mcg PO DAILY WINSTON Stop: 04/02/22 08:59 Last Admin: 03/04/22 08:48 Dose: 400 mcg Documented by: Hydroxyzine HCl (Hydroxyzine Hcl 25 Mg Tab) 50 mg PO HSZ PRN PRN Reason: Insomnia Stop: 04/01/22 11:09 Hydroxyzine HCl (Hydroxyzine Hcl 25 Mg Tab) 25 mg PO Q4H PRN PRN Reason: Anxiety Stop: 04/01/22 11:09 Letrozole (Letrozole 2.5 Mg Tab) 2.5 mg PO DAILY W[place]ON Stop: 04/02/22 08:59 Last Admin: 03/04/22 08:48 Dose: 2.5 mg Documented by: Lorazepam (Lorazepam 1 Mg Tab) 1 mg PO BIDM WINSTON Stop: 04/01/22 17:44 Last Admin: 03/04/22 08:49 Dose: 1 mg Documented by: Magnesium Hydroxide (Magnesium Hydroxide Susp 30 Ml Udc) 30 ml PO DAILY PRN PRN Reason: Constipation Stop: 04/01/22 11:09 Magnesium Oxide (Magnesium Oxide 400 Mg Tab) 400 mg PO DAILY WINSTON Stop: 04/02/22 08:59 Last Admin: 03/04/22 08:48 Dose: 400 mg Documented by: Miscellaneous (Remove Nicoderm Patch) 1 ea N/A DAILY@0859 W[place]ON Stop: 04/01/22 08:58 Last Admin: 03/04/22 08:48 Dose: 1 ea Documented by: Multivitamins (Multivitamin Tab) 1 tab PO DAILY WINSTON Stop: 04/02/22 08:59 Last Admin: 03/04/22 08:48 Dose: 1 tab Documented by: Olanzapine (Olanzapine 2.5 Mg Tab) 7.5 mg PO BID W[place]ON Stop: 04/02/22 20:59 Last Admin: 03/04/22 08:48 Dose: 7.5 mg Documented by: Rosuvastatin Calcium (Rosuvastatin Calcium 10 Mg Tab) 10 mg PO DAILY WINSTON Stop: 04/02/22 08:59 Last Admin: 03/04/22 08:48 Dose: 10 mg Documented by: Sodium Chloride (Sodium Chloride 0.65% Na Soln 45 Ml ([place])) 1 - 2 sprays NA PRN PRN PRN Reason: Nasal Dryness/Congestion Stop: 04/01/22 11:09 Temazepam (Temazepam 15 Mg Capsule) 30 mg PO HS WINSTON Stop: 04/01/22 21:59 Last Admin: 03/03/22 20:55 Dose: 30 mg Documented by: Trazodone HCl (Trazodone Hcl 100 Mg Tab) 200 mg PO HS WINSTON Stop: 04/01/22 21:59 Last Admin: 03/03/22 20:55 Dose: 200 mg Documented by: Vitamin D (Cholecalciferol 1,000 Units 25 Mcg Tab) 1,000 units PO DAILY WINSTON Stop: 04/02/22 08:59 Last Admin: 03/04/22 08:48 Dose: 1,000 units Documented by: Mental Health & Subst Abuse Tx Psychiatrist Name of Psychiatrist: Teri Mcconnell Psychiatrist's Psychiatric Appointment Comment: [address] [facility] [place], [place] Therapist Name of Therapist: [facility] - Claudia Rascon Psy.D. Therapist's Date of Therapist Appointment: 03/28/22 Time of Therapist Appointment: 3:00 p.m. Therapy Appointment Comment: [address] [facility] [place] [address] Manager Shop Name of Manager Shop: . Post Discharge Appointments Primary Care Physician Name Of Family Doctor: [facility] - Dr. Jimbo Freeman Primary Care Time of Appointment with PCP: Follow up as needed Provider Appointment Comment: [address] [facility], [place] [address] Neurologist Name of Neurologist: Ghazala Cervantes Neurologist's Date of Appointment with Neurologist: 03/22/22 Neurology Appointment Comment: [address] [facility] Contact Information Discharge Discharge Address: [address] [place] [address] [place] [id number]
[2022-03-04] MEDS: PROPRANOLOL HCL 20 MG TAB PO SCH (18:34)
[2022-03-04] MEDS: traZODone HCL 100 MG TAB PO SCH (21:10)
[2022-03-04] MEDS: TEMAZEPAM 15 MG CAPSULE PO SCH (21:10)
[2022-03-05] MEDS: LORazepam 1 MG TAB PO SCH ×2 (06:27→14:41)
[2022-03-05] MEDS: PROPRANOLOL HCL 20 MG TAB PO SCH ×2 (08:40→17:19)
[2022-03-05 08:41] LABS: Chol HDL Ratio 2.4 (0-5)
[2022-03-05] MEDS: CYANOCOBALAMIN (B-12) 2,500 MCG TABLET SL SCH (08:41)
[2022-03-05] MEDS: ASCORBIC ACID 500 MG TAB PO SCH (08:41)
[2022-03-05] MEDS: MULTIVITAMIN TAB PO SCH (08:41)
[2022-03-05] MEDS: ROSUVASTATIN CALCIUM 10 MG TAB PO SCH (08:41)
[2022-03-05] MEDS: OLANZAPINE 2.5 MG TAB PO SCH ×2 (08:41→20:24)
[2022-03-05] MEDS: ASPIRIN 81 MG ECTAB PO SCH (08:41)
[2022-03-05] MEDS: MAGNESIUM OXIDE 400 MG TAB PO SCH (08:41)
[2022-03-05] MEDS: CALCIUM CARBONATE 1250MG TAB PO SCH (08:41)
[2022-03-05] MEDS: LETROZOLE 2.5 MG TAB PO SCH (08:41)
[2022-03-05] MEDS: CHOLECALCIFEROL 1,000 UNITS 25 MCG TAB PO SCH (08:41)
[2022-03-05] MEDS: FOLIC ACID 400 MCG TAB PO SCH (08:41)
--- NOTE | 2022-03-05 08:50 | Psychiatric Progress Note ---
Date of Service March 05, 2022 Impression / Recommendations Impression 61 yo female with a history of tremor and atypical depression with severe anxiety if not robby in 2019 following/during course of chemo for breast CA. Currently presents overwhelmed with inability to function at home despite multiple outpatient medication trials. She is expressing suicidal ideation with a plan to OD on her medications. The patient is deemed unstable and requires psychiatric hospitalization for diagnostic clarification, safety and stabilization, medication management and development of further coping skills. MNPR due to severity of anxiety/inability to tolerate roommate. 03/05/22: Reviewed interim progress from Dr. Giraldo's notes. Depression and anxiety improving with medication shift to earlier in the morning. Reviewed fasting glucose and lipid panel which were both normal. Normal Iron studies. (1) Recurrent moderate major depressive disorder with anxiety: 03/05/22: Continue current medications and treatment plan. 03/04/22: will shift am meds earlier as she awakens between 5-7 am at home. She is now agreeable to a full trial of a beta eileen (previously 10 mg propranolol). Risks/benefits/alternatives reviewed propranolol for anxiety and tremor (tremor is not EPS). She agreed to 20 mg BID propranolol. She is requesting Ativan prn prior to her meeting with . 03/03/22: The patient agreed to increase Zyprexa to 7.5 mg BID (previous dose but split), monitor tachy as I still feel she would benefit from a beta eileen, staff to gain collateral from . 03/02/22: The patient was admitted to the [facility] ([facility] mental health unit) on q15 min checks (behavioral with suicide precautions) for safety. The patient will participate in group, recreational, and milieu therapies and will be offered additional individual and family sessions as clinically appropriate. The patient's anxiety is quite high, will get records but she doesn't really describe periods of robby, will treat for depression with severe anxiety. Discussed with patient that lupus may be some contributing factor to non- response/recurrent depression as an inflammatory condition. Risks/benefits/alternatives reviewed re: her current medications. Discussion included but was not limited to fall risk, combined sedation, jail dependence, need for metabolic and TD monitoring. She is agreeable to continue her current sleep meds, split dosing of Zyprexa (will try 5 mg BID initiallY) and Ativan 1 mg BID with meals (scheduled for now). Inventory Assets Strengths: help seeking, family support Needs: coping skills, decrease med focus Suicide Risk Level Suicide Risk Level: Moderate (q15 min suicide checks) Suicide Risk Level Comments: no longer with active SI but still with depression and anxiety, no hx of attempts and able to express needs to staff. Risk Factors Assessment : Yes Do You Have Access To A Gun?: No Mental Health Diagnoses: Yes Substance Use Disorders: No Protective Factors Assessment Employed: No Interval History Identifying Information MARYELLEN CAPPS is a 61-year-old F who currently lives in [place], has a history of depression, possibly bipolar, and was admitted on 03/02/22 11:11 on a 201 voluntary commitment for SI with plan to OD on pills. Chief Complaint "The medication timing change helped". Review of Systems Sleep Information Total Hours of Sleep: 7 Sleep Comments: Vistaril x 2 Meal Information Percent Meal Consumed - Breakfast: 100 Percent Meal Consumed - Lunch: 100 Percent Meal Consumed - Dinner: 100 Nutrition Comment: pt. had lunch in ED prior to admission Subjective Subjective Patient was seen & assessed and interval progress reviewed with treatment team nursing and social work. Had family meeting yesterday which she felt went well. Reviewed recent stressors including slow recovery from cancer treatments, completed final chemo/radiation last March 2021, and stressors at home. Didn't sleep well last night due to getting cold around 3am and then couldn't get back to sleep. She thinks having outpatient therapy again will be helpful. No SI. No medication side effects. Physical Exam Psychiatric Orientation: alert and oriented x 3 Apperance: appropriately groomed Eye Contact: good eye contact Motor Behavior: + tremor Speech: normal rate/rhythm/volume of speech Affect: + constricted affect Mood: + depressed mood and + anxious mood Thought Process: goal directed thought process Thought Content: reality based without delusions Suicidal Thoughts: denies suicidal thoughts Homicidal Thoughts: denies homicidal thoughts Hallucinations: no auditory hallucinations and no visual hallucinations Cognition: attention grossly intact and language grossly intact Estimated Intelligence: consistent with education level Insight: + fair insight Judgement: + fair judgement Vital Signs (Past 24 Hours) Last Vital Signs Temp 36.8 C 03/05/22 06:43 Pulse 115 H 03/05/22 06:43 Resp 18 03/05/22 06:43 BP 117/80 03/05/22 06:43 Pulse Ox 93 03/05/22 06:43 Results & Data ([facility]) Laboratory Results Laboratory Results - last 24 hr 03/05/22 07:18 Fasting Glucose 88 Iron 84 Unsaturated IBC 256 Ferritin Pending Triglycerides 102 Cholesterol 149 LDL Cholesterol, Calc 68 VLDL Cholesterol, Calc 20 HDL Cholesterol 61 Cholesterol/HDL Ratio 2.4 Current Inpatient Medications Current Inpatient Medications: Current Inpatient Medications Acetaminophen (Acetaminophen 325 Mg Tab) 650 mg PO Q4H PRN PRN Reason: Headache or Minor Fever Stop: 04/01/22 11:09 Al Hydrox/Mg Hydrox/Simethicone (Aluminum/Magnesium Susp 30 Ml Udc) 30 ml PO Q4H PRN PRN Reason: GI Upset Stop: 04/01/22 11:09 Ascorbic Acid (Ascorbic Acid 500 Mg Tab) 1,000 mg PO DAILY WINSTON Stop: 04/02/22 08:59 Last Admin: 03/04/22 08:48 Dose: 1,000 mg Documented by: Aspirin (Aspirin 81 Mg Ectab) 81 mg PO DAILY WINSTON Stop: 04/02/22 08:59 Last Admin: 03/04/22 08:48 Dose: 81 mg Documented by: Bismuth Subsalicylate (Bismuth Subsalicylate Liqd 236 Ml) 15 ml PO PRN PRN PRN Reason: Loose Stool Stop: 04/01/22 11:09 Calcium Carbonate (Calcium Carbonate 1250mg Tab) 1,250 mg PO DAILY WINSTON Stop: 04/02/22 08:59 Last Admin: 03/04/22 08:48 Dose: 1,250 mg Documented by: Cyanocobalamin (Cyanocobalamin (B-12) 2,500 Mcg Tablet) 2,500 mcg SL DAILY WINSTON Stop: 04/02/22 08:59 Last Admin: 03/04/22 08:48 Dose: 2,500 mcg Documented by: Folic Acid (Folic Acid 400 Mcg Tab) 400 mcg PO DAILY WINSTON Stop: 04/02/22 08:59 Last Admin: 03/04/22 08:48 Dose: 400 mcg Documented by: Hydroxyzine HCl (Hydroxyzine Hcl 25 Mg Tab) 50 mg PO HSZ PRN PRN Reason: Insomnia Stop: 04/01/22 11:09 Hydroxyzine HCl (Hydroxyzine Hcl 25 Mg Tab) 25 mg PO Q4H PRN PRN Reason: Anxiety Stop: 04/01/22 11:09 Letrozole (Letrozole 2.5 Mg Tab) 2.5 mg PO DAILY WINSTON Stop: 04/02/22 08:59 Last Admin: 03/04/22 08:48 Dose: 2.5 mg Documented by: Lorazepam (Lorazepam 1 Mg Tab) 1 mg PO [id number] WINSTON Stop: 04/03/22 13:59 Last Admin: 03/05/22 06:27 Dose: 1 mg Documented by: Magnesium Hydroxide (Magnesium Hydroxide Susp 30 Ml Udc) 30 ml PO DAILY PRN PRN Reason: Constipation Stop: 04/01/22 11:09 Magnesium Oxide (Magnesium Oxide 400 Mg Tab) 400 mg PO DAILY WINSTNO Stop: 04/02/22 08:59 Last Admin: 03/04/22 08:48 Dose: 400 mg Documented by: Miscellaneous (Remove Nicoderm Patch) 1 ea N/A DAILY@0859 WINSTON Stop: 04/01/22 08:58 Last Admin: 03/04/22 08:48 Dose: 1 ea Documented by: Multivitamins (Multivitamin Tab) 1 tab PO DAILY WINSTON Stop: 04/02/22 08:59 Last Admin: 03/04/22 08:48 Dose: 1 tab Documented by: Olanzapine (Olanzapine 2.5 Mg Tab) 7.5 mg PO BID WINSTON Stop: 04/02/22 20:59 Last Admin: 03/04/22 21:10 Dose: 7.5 mg Documented by: Propranolol HCl (Propranolol Hcl 20 Mg Tab) 20 mg PO BIDM WINSTON Stop: 04/03/22 17:44 Last Admin: 03/04/22 18:34 Dose: 20 mg Documented by: Rosuvastatin Calcium (Rosuvastatin Calcium 10 Mg Tab) 10 mg PO DAILY WINSTON Stop: 04/02/22 08:59 Last Admin: 03/04/22 08:48 Dose: 10 mg Documented by: Sodium Chloride (Sodium Chloride 0.65% Na Soln 45 Ml ([place])) 1 - 2 sprays NA PRN PRN PRN Reason: Nasal Dryness/Congestion Stop: 04/01/22 11:09 Temazepam (Temazepam 15 Mg Capsule) 30 mg PO HS WINSTON Stop: 04/01/22 21:59 Last Admin: 03/04/22 21:10 Dose: 30 mg Documented by: Trazodone HCl (Trazodone Hcl 100 Mg Tab) 200 mg PO HS WINSTON Stop: 04/01/22 21:59 Last Admin: 03/04/22 21:10 Dose: 200 mg Documented by: Vitamin D (Cholecalciferol 1,000 Units 25 Mcg Tab) 1,000 units PO DAILY WINSTON Stop: 04/02/22 08:59 Last Admin: 03/04/22 08:48 Dose: 1,000 units Documented by: Mental Health & Subst Abuse Tx Psychiatrist Name of Psychiatrist: Teri Mcconnell Psychiatrist's Date of Appointment with Psychiatrist: 03/10/22 Time of Appointment with Psychiatrist: 10:15 AM Psychiatric Appointment Comment: [address] [facility], [place] Therapist Name of Therapist: [facility] - Claudia Rascon Psy.D. Therapist's Date of Therapist Appointment: 03/28/22 Time of Therapist Appointment: 3:00 p.m. Therapy [facility]ment [facility] [id number] Scientific Illustrator Name of Scientific Illustrator: . Post Discharge Appointments Primary Care Physician Name Of Family Doctor: [facility] - Dr. Jimbo Freeman Primary Care Time of Appointment with PCP: Follow up as needed Provider Appointment Comment: [address] [place] [address] Neurologist Name of Neurologist: Ghazala Cervantes Neurologist's Date of Appointment with Neurologist: 03/22/22 Neurology Appointment Comment: [address] [facility] Contact Information Discharge Discharge Address: [address] [place] [address] [place] [id number]
[2022-03-05 09:20] LABS: Ferritin 30.8 ng/ml (8-388)
[2022-03-05] MEDS: TEMAZEPAM 15 MG CAPSULE PO SCH (20:24)
[2022-03-05] MEDS: traZODone HCL 100 MG TAB PO SCH (20:24)
[2022-03-06 06:27] VITALS: TEMP 97.9; O2SAT 97
[2022-03-06] MEDS: LORazepam 1 MG TAB PO SCH (06:29)
[2022-03-06] MEDS: ASCORBIC ACID 500 MG TAB PO SCH (08:34)
[2022-03-06] MEDS: ASPIRIN 81 MG ECTAB PO SCH (08:35)
[2022-03-06] MEDS: CALCIUM CARBONATE 1250MG TAB PO SCH (08:36)
[2022-03-06] MEDS: CHOLECALCIFEROL 1,000 UNITS 25 MCG TAB PO SCH (08:37)
[2022-03-06] MEDS: MAGNESIUM OXIDE 400 MG TAB PO SCH (08:38)
[2022-03-06] MEDS: FOLIC ACID 400 MCG TAB PO SCH (08:38)
[2022-03-06] MEDS: OLANZAPINE 2.5 MG TAB PO SCH (08:39)
[2022-03-06] MEDS: MULTIVITAMIN TAB PO SCH (08:39)
[2022-03-06] MEDS: PROPRANOLOL HCL 20 MG TAB PO SCH (08:40)
[2022-03-06] MEDS: LETROZOLE 2.5 MG TAB PO SCH (08:41)
[2022-03-06] MEDS: ROSUVASTATIN CALCIUM 10 MG TAB PO SCH (08:41)
[2022-03-06] MEDS: CYANOCOBALAMIN (B-12) 2,500 MCG TABLET SL SCH (08:41)
--- NOTE | 2022-03-06 09:40 | Discharge Summary ---
Date of Service March 06, 2022 History of Present Illness The patient is known to me from an inpatient consultation in Aug 2021 when she was being treated on the medical floor for AMS/stroke w/u. Her presentation is similar in that she is quite emotional and focussed on her medications not working and her tremor. [place] she reports refused to drive her back here. She has relied on her elderly mother in the past for transportation to chemo. She has 2 adult children, 1 of whom lives in the home who "doesn't do much". Her anxiety and tremor are unchanged despite multiple medication trials (recently Abilify, Latuda, then back to Zyprexa last week). She was seen in the ED and reports coming here as prefers the care. She reports not doing much in the way of activity due to her depression, doesn't go out much (unclear if truly agoraphobia), and low energy. Her hygiene (showering) has decreased. She decided to come for assessment as dealing with "all this for so long that no one care anymore" and had thoughts to end her life by overdosing on medication. She feels that perhaps her tremor is related to her past chemo and worries frequently that she has Parkinson's though reportedly work up has been negative. 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 Her sleep is also fragmented by having 5 dogs that go out sometimes multiple times a night. She is hyperalert around the slovak dill as he attacked 2 of her dogs and they had to be put down a few years ago. She states another things that creates anxiety for her is her appearance as she had to get dentures after chemo and has always been focussed on her appearance. She reports recently having a sleep study that rule out significant apnea and she slept well on trazodone 200 mg hs, Restoril 30 mg and Zyprexa but "there were no dogs." The best she has done was in Aug-Nov. At that time her psych med regimen was rather simple at 5 mg BID. She had an EKG in the ED for sinus tachy related to her anxiety. Physical Exam Vital Signs (Past 24 Hours) Last Vital Signs Temp 36.6 C 03/06/22 06:00 Pulse 92 H 03/06/22 06:00 Resp 18 03/06/22 06:00 BP 112/75 03/06/22 06:27 Pulse Ox 97 03/06/22 06:00 See admission H&P and DOD summary. Principal Diagnosis Major Depressive Disorder with anxious distress Psychiatric Data See daily stay summary. In short, patient was engaged with the social/therapeutic milieu of the unit, safety was maintained and the patient was cooperative with care. Medication changes included increase in dose of lorazepam and split dosing of olanzapine and initiation of propranolol (for anxiety, tremor and tachycardia) and they tolerated this well. As she gets restarted with therapy and develops more coping skills ideally with some focus on CBT for insomnia and sleep hygiene the goal would be for gradual taper of her sleep medications as she is currently on a fairly high dose of temazepam. Would recommend a gradual taper of this over time to discontinuation. Also recommend that as her sleep and coping skills improve with therapy that her lorazepam is slowly tapered, ideally to eventual discontinuation, with only a few pills available per month as needed for severe panic attacks. Ideally would be tapered by about 0.125mg or 0.25 mg every 2-4 weeks after a period of at least one month of ongoing mood stability. Baseline labs of fasting glucose,fasting lipid profile, and weight were preformed and WNL as she was continued on olanzapine. Recommend repeat fasting glucose and fasting lipid profile at least annually. If symptoms arise recommend checking BP, EKG, prolactin level as clinically indicated or relevant. Reviewed with patient at length the risks associated with benzodiazepine use especially in adults over age 65 included but not limited to increased risk of falls and cognitive effects. A family session was held and safety plan was completed prior to discharge. In the days leading up to discharge she consistently denied any SI. She actively and insightfully participated in safety planning and in discussions about ways to seek support and recognizing warning signs and utilizing coping skills. Reviewed mobile apps that could be used for additional ways to have their safety plan and contacts easily available should thoughts of SI re-emerge in the future. Reviewed importance of seeking emergency care should SI intensify, worsen or should they feel unsafe in the future which they agree to do. On the day of discharge she stated her mood was "pretty good and excited" and remained future-oriented including seeing her son, enjoying Memorial day, getting settled at home and engaging in aftercare appointments for psychiatry, therapy and neurology. Day of Discharge Assessment Today the patient voices readiness for discharge. They note improvement in mood and anxiety. They deny thoughts of harm to self or others. Thoughts are organized and they are clinically improved from admission. There is no evidence of psychosis. They improved in the hospital with support and medication adjustments. They agree to take medications as prescribed and keep follow-up appointments. At the time of the discharge they are deemed to be stable and appropriate for outpatient level of care. They are not deemed to be at imminent risk of harm to self or others. They are aware of emergency and crisis services. Knows to call 911 or go to nearest emergency care center if in a crisis which cannot be handled as an outpatient. Transition of Care Transition Of Care Record: was reviewed with the patient Advance Directives Advance Directives Information Provided: Yes Advance Directives: Yes Mental Health Advance Directive: No Advance Directives on File: No Living Will: Yes (at home) Power of Compliance Lead: Yes Power of Compliance Lead Name: Eduardo Barlow Advance Directives Reason:: Declines as Mental Health Visit. Suicide Risk Level Suicide Risk Level: Low (q15 min observation checks) Suicide Risk Level Comments: Acute risk is low given improvement in mood and denial of SI, lack of access to lethal means, improvement in sleep, hopefulness and improvement in anxiety. Chronic risk is low given no prior attempt and multiple protective factors. Counseled on ways to reduce acute and chronic risk including engaging with outpatient providers, using safety plan if needed, utilizing supports, taking medication, and using coping skills. Modifiable risk factors of SI and depression were addressed during hospitalization through development of new coping skills, family meeting, safety planning, and medication adjustments. Risk Factors Assessment Male: No : Yes Do You Have Access To A Gun?: No Health Problems: Yes Mental Health Diagnoses: Yes Substance Use Disorders: No Previous Attempt: No Family History of Suicide: No Previous Psychiatric Hospitalization: Yes Hopelessness: No Protective Factors Assessment : Yes Employed: No Stable Relationships: Yes Supportive Family: Yes Good Rapport with Provider: Yes Discharge Data Lab Results 03/02/22 03/02/22 03/02/22 07:35 07:38 07:38 WBC 8.01 RBC 4.06 L Hgb 13.3 Hct 39.6 MCV 97.5 MCH 32.8 MCHC 33.6 RDW Std Deviation 53.3 H RDW Coeff of Lore 14.9 H Plt Count 288 MPV 9.8 Immature Gran % (Auto) 0.1 Neut % (Auto) 72.6 Lymph % (Auto) 17.1 Stonewall % (Auto) 9.1 Eos % (Auto) 0.9 Baso % (Auto) 0.2 Neut # (Auto) 5.81 Lymph # (Auto) 1.37 Stonewall # (Auto) 0.73 H Eos # (Auto) 0.07 Baso # (Auto) 0.02 Immature Gran # (Auto) 0.01 D-Dimer Sodium 140 Potassium 4.7 Chloride 106 Carbon Dioxide 27 Anion Gap 7 BUN 12 Creatinine 1.12 Est Cr Clr Drug Dosing 42.7 Est GFR ( Amer) 60.5 Est GFR (Non-Af Amer) 52.2 BUN/Creatinine Ratio 10.7 Glucose 134 H Fasting Glucose Calcium 9.6 Iron Unsaturated IBC Ferritin Total Bilirubin 0.4 AST 20 ALT 15 Alkaline Phosphatase 74 Troponin I High Sens 5.7 Total Protein 7.3 Albumin 4.5 Globulin 2.8 Albumin/Globulin Ratio 1.6 Triglycerides Cholesterol LDL Cholesterol, Calc VLDL Cholesterol, Calc HDL Cholesterol Cholesterol/HDL Ratio TSH Urine Color Urine Appearance Urine pH Ur Specific [place] Urine Protein Urine Glucose (UA) Urine Ketones Urine Blood Urine Nitrite Urine Bilirubin Urine Urobilinogen Ur Leukocyte Esterase Urine WBC (Auto) Urine RBC (Auto) U Hyaline Cast (Auto) U Epithel Cells (Auto) Urine Bacteria (Auto) Salicylates Urine Opiates Screen Ur Methadone, Qual Acetaminophen Urine Barbiturates Ur Phencyclidine (PCP) U Amphetamin/Meth Scrn MDMA (Ecstasy) Screen U Benzodiazepines Scrn Ur Cocaine Metabolite U Marijuana (THC) Screen Ethyl Alcohol mg/dL SARS-CoV-2, RNA, NAAT NEGATIVE 03/02/22 03/02/22 03/02/22 07:38 07:38 07:38 WBC RBC Hgb Hct MCV MCH MCHC RDW Std Deviation RDW Coeff of Lore Plt Count MPV Immature Gran % (Auto) Neut % (Auto) Lymph % (Auto) Stone[place] % (Auto) Eos % (Auto) Baso % (Auto) Neut # (Auto) Lymph # (Auto) [place] # (Auto) Eos # (Auto) Baso # (Auto) Immature Gran # (Auto) D-Dimer Sodium Potassium Chloride Carbon Dioxide Anion Gap BUN Creatinine Est Cr Clr Drug Dosing Est GFR ( Amer) Est GFR (Non-Af Amer) BUN/Creatinine Ratio Glucose Fasting Glucose Calcium Iron Unsaturated IBC Ferritin Total Bilirubin AST ALT Alkaline Phosphatase Troponin I High Sens Total Protein Albumin Globulin Albumin/Globulin Ratio Triglycerides Cholesterol LDL Cholesterol, Calc VLDL Cholesterol, Calc HDL Cholesterol Cholesterol/HDL Ratio TSH 0.824 Urine Color Urine Appearance Urine pH Ur Specific [place] Urine Protein Urine Glucose (UA) Urine Ketones Urine Blood Urine Nitrite Urine Bilirubin Urine Urobilinogen Ur Leukocyte Esterase Urine WBC (Auto) Urine RBC (Auto) U Hyaline Cast (Auto) U Epithel Cells (Auto) Urine Bacteria (Auto) Salicylates < 3.0 L Urine Opiates Screen Ur Methadone, Qual Acetaminophen < 3 L Urine Barbiturates Ur Phencyclidine (PCP) U Amphetamin/Meth Scrn MDMA (Ecstasy) Screen U Benzodiazepines Scrn Ur Cocaine Metabolite U Marijuana (THC) Screen Ethyl Alcohol mg/dL < 10.0 SARS-CoV-2, RNA, NAAT 03/02/22 03/02/22 03/02/22 07:38 Unknown Unknown WBC RBC Hgb Hct MCV MCH MCHC RDW Std Deviation RDW Coeff of Lore Plt Count MPV Immature Gran % (Auto) Neut % (Auto) Lymph % (Auto) [place] % (Auto) Eos % (Auto) Baso % (Auto) Neut # (Auto) Lymph # (Auto) [place] # (Auto) Eos # (Auto) Baso # (Auto) Immature Gran # (Auto) D-Dimer 580 H* Sodium Potassium Chloride Carbon Dioxide Anion Gap BUN Creatinine Est Cr Clr Drug Dosing Est GFR ( Amer) Est GFR (Non-Af Amer) BUN/Creatinine Ratio Glucose Fasting Glucose Calcium Iron Unsaturated IBC Ferritin Total Bilirubin AST ALT Alkaline Phosphatase Troponin I High Sens Total Protein Albumin Globulin Albumin/Globulin Ratio Triglycerides Cholesterol LDL Cholesterol, Calc VLDL Cholesterol, Calc HDL Cholesterol Cholesterol/HDL Ratio TSH Urine Color Yellow Urine Appearance Clear Urine pH 6.5 Ur Specific [place] 1.005 Urine Protein Negative Urine Glucose (UA) Negative Urine Ketones Negative Urine Blood Negative Urine Nitrite Negative Urine Bilirubin Negative Urine Urobilinogen Negative Ur Leukocyte Esterase Trace H Urine WBC (Auto) 1-5 Urine RBC (Auto) 0-4 U Hyaline Cast (Auto) 1-5 U Epithel Cells (Auto) 5-10 H Urine Bacteria (Auto) Negative Salicylates Urine Opiates Screen Neg Ur Methadone, Qual Neg Acetaminophen Urine Barbiturates Neg Ur Phencyclidine (PCP) Neg U Amphetamin/Meth Scrn Neg MDMA (Ecstasy) Screen Neg U Benzodiazepines Scrn Neg Ur Cocaine Metabolite Neg U Marijuana (THC) Screen Neg Ethyl Alcohol mg/dL SARS-CoV-2, RNA, NAAT 03/05/22 07:18 WBC RBC Hgb Hct MCV MCH MCHC RDW Std Deviation RDW Coeff of Lore Plt Count MPV Immature Gran % (Auto) Neut % (Auto) Lymph % (Auto) [place] % (Auto) Eos % (Auto) Baso % (Auto) Neut # (Auto) Lymph # (Auto) [place] # (Auto) Eos # (Auto) Baso # (Auto) Immature Gran # (Auto) D-Dimer Sodium Potassium Chloride Carbon Dioxide Anion Gap BUN Creatinine Est Cr Clr Drug Dosing Est GFR ( Amer) Est GFR (Non-Af Amer) BUN/Creatinine Ratio Glucose Fasting Glucose 88 Calcium Iron 84 Unsaturated IBC 256 Ferritin 30.8 Total Bilirubin AST ALT Alkaline Phosphatase Troponin I High Sens Total Protein Albumin Globulin Albumin/Globulin Ratio Triglycerides 102 Cholesterol 149 LDL Cholesterol, Calc 68 VLDL Cholesterol, Calc 20 HDL Cholesterol 61 Cholesterol/HDL Ratio 2.4 TSH Urine Color Urine Appearance Urine pH Ur Specific [place] Urine Protein Urine Glucose (UA) Urine Ketones Urine Blood Urine Nitrite Urine Bilirubin Urine Urobilinogen Ur Leukocyte Esterase Urine WBC (Auto) Urine RBC (Auto) U Hyaline Cast (Auto) U Epithel Cells (Auto) Urine Bacteria (Auto) Salicylates Urine Opiates Screen Ur Methadone, Qual Acetaminophen Urine Barbiturates Ur Phencyclidine (PCP) U Amphetamin/Meth Scrn MDMA (Ecstasy) Screen U Benzodiazepines Scrn Ur Cocaine Metabolite U Marijuana (THC) Screen Ethyl Alcohol mg/dL SARS-CoV-2, RNA, NAAT Hospital Course (1) Recurrent moderate major depressive disorder with anxiety: 03/05/22: Continue current medications and treatment plan. 03/04/22: will shift am meds earlier as she awakens between 5-7 am at home. She is now agreeable to a full trial of a beta eileen (previously 10 mg propranolol). Risks/benefits/alternatives reviewed propranolol for anxiety and tremor (tremor is not EPS). She agreed to 20 mg BID propranolol. She is requesting Ativan prn prior to her meeting with . 03/03/22: The patient agreed to increase Zyprexa to 7.5 mg BID (previous dose but split), monitor tachy as I still feel she would benefit from a beta eileen, staff to gain collateral from . 03/02/22: The patient was admitted to the [facility] ([facility]) on q15 min checks (behavioral with suicide precautions) for safety. The patient will participate in group, recreational, and milieu therapies and will be offered additional individual and family sessions as clinically appropriate. The patient's anxiety is quite high, will get records but she doesn't really describe periods of robby, will treat for depression with severe anxiety. Discussed with patient that lupus may be some contributing factor to non- response/recurrent depression as an inflammatory condition. Risks/benefits/alternatives reviewed re: her current medications. 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 She is agreeable to continue her current sleep meds, split dosing of Zyprexa (will try 5 mg BID initiallY) and Ativan 1 mg BID with meals (scheduled for now). Mental Health & Subst Abuse Tx Psychiatrist Name of Psychiatrist: Teri Mcconnell Psychiatrist's Date of Appointment with Psychiatrist: 03/10/22 Time of Appointment with Psychiatrist: 10:15 AM Psychiatric Appointment Comment: [address] [place], [place] Therapist Name of Therapist: [facility] - Claudia Rascon Psy.D. Therapist's Date of Therapist Appointment: 03/28/22 Time of Therapist Appointment: 3:00 p.m. Therapy Appointment Comment: [address] [place] [address] Alumni Secretary Name of Alumni Secretary: . Post Discharge Appointments Primary Care Physician Name Of Family Doctor: [facility] - Dr[facility] Jimbo Freeman Primary Care Time of Appointment with PCP: Follow up as needed Provider Appointment Comment: [address] [facility], [place] [address] Neurologist Name of Neurologist: Ghazala Cervantes Neurologist's Date of Appointment with Neurologist: 03/22/22 Neurology Appointment Comment: [address] [facility] Contact Information Discharge Discharge Address: [address] [place], [place] [id number] Discharge Plan Discharge Items Patient Disposition: Home - Self-Care Reason For Visit: MDD Discharge Diagnosis: Major Depressive Disorder with anxious distress Activity: Resume your previous activity Non-emergency contact: Primary Care Provider, Psychiatrist and Therapist Call non-emergency contact if: you have any medication questions and your symptoms worsen Follow-up/Referrals: Jimbo Freeman [Primary Care Provider] - Diet: Regular Addtl Attending Provider Instructions: SPECIAL CARE INSTRUCTIONS: 1. Follow through with your scheduled aftercare appointments. If unable to keep an appointment, please call to reschedule. 2. Take your medication only as prescribed. Medication should not be changed or stopped without the approval of your doctor. In the event of worsening symptoms or concerns about side effects, contact your doctor immediately. 3. Utilize new healthy coping skills, anger management skills, and stress management skills learned during your hospitalization. Journal feelings and process them with a support person. Identify stressors or situations that may result in relapse, deterioration or inappropriate behaviors and develop a plan to deal with those issues. 4. If your coping skills are ineffective and you are in crisis, contact your outpatient providers for direction. If unable to reach your providers, please call the [facility] CRISIS LINE AT , go to the [facility] walk-in center at [address] [place], or go to the closest Emergency Room. 5. Avoid alcohol and un-prescribed drugs. 6. You have been provided with the Mental Health Advance Directives Pamphlet for your review. 7. Your condition is stable for discharge to outpatient level of care, but recovery is an ongoing process. Ifthoughts to harm yourself or others return, follow the safety plan developed during your stay. Planning for a safe return home includes securing weapons. Our treatment team recommends weaponsbe removed from the home until your outpatient provider reassesses your progress. In rare cases where the items themselvescannot be removed, guns and ammunitionshould be secured separatelyand keys stored by a reliable personoutside of the home. If you were admitted on an involuntary commitment, the police or other legal authorities may be involved in this process. AFTERCARE APPOINTMENTS: * Please call your insurance company prior to your scheduled appointment to confirm your aftercare providers are covered. Take your insurance information to your appointments. WHO TO CALL AND WHEN: Medical Emergencies: For questions or emergencies related to your hospital stay, please contact the Inpatient Behavioral Health Unit at [phone]. A psychiatric secretary is on-call 01/05 for the Behavioral Health Unit for emergencies At any time you feel your situation is an emergency, you may also call 911 immediately. Pending Studies at Discharge: No Stand-Alone Forms: My [facility] Medications and DC Order Prescriptions: New propranolol 20 mg Tablet 20 mg PO BIDM 30 Days Qty: 60 RF: 0 lorazepam 1 mg Tablet 1 mg PO [id number] 30 Days Qty: 60 RF: 0 hydroxyzine HCl 50 mg tablet 50 mg PO HS PRN (Reason: insomnia/anxiety) Qty: 30 RF: 0 olanzapine 7.5 mg tablet 7.5 mg PO BID 30 Days Qty: 60 RF: 0 Continued ascorbic acid (vitamin C) 500 mg capsule 1,000 mg PO DAILY RF: 0 cholecalciferol (vitamin D3) 25 mcg (1,000 unit) capsule 25 mcg PO DAILY RF: 0 mecobalamin (vitamin B12) 5,000 mcg tablet,disintegrating 2,500 mcg PO DAILY RF: 0 calcium carbonate 600 mg calcium (1,500 mg) tablet 600 mg PO DAILY RF: 0 folic acid 400 mcg tablet 0.4 mg PO DAILY RF: 0 magnesium oxide 250 mg magnesium tablet 250 mg PO DAILY RF: 0 rosuvastatin 10 mg tablet 10 mg PO DAILY RF: 0 aspirin 81 mg tablet,delayed release (DR/EC) 81 mg PO DAILY RF: 0 temazepam [Restoril] 30 mg capsule 30 mg PO .QHS RF: 0 letrozole 2.5 mg tablet 2.5 mg PO DAILY RF: 0 multivitamin Tablet 1 tab PO DAILY RF: 0 Changed Ativan 0.5 mg 2 tab PO BID Qty: 0 RF: 0 trazodone 100 mg tablet 200 mg PO DAILY Qty: 0 RF: 0 Discontinued benztropine 1 mg tablet 1 mg PO DAILY RF: 0 Viibryd 10 mg tablet 10 mg PO DAILY RF: 0 cariprazine 3 mg capsule 3 mg PO DAILY RF: 0 DOTERRA ESSENTIAL 2 dose PO QAM Qty: 0 RF: 0 Discharge Orders: Discharge Order (Routine); Ordered 03/06/22 Ordered By: Carolin Jerry/Other Patient Handouts: Depression: Tips to Help Yourself Admission Data Admit Date/Time: 03/02/22 11:11 Attending Provider: Berna Giraldo Admit Provider: Berna Giraldo Primary Care Provider: Jimbo Freeman Other Interventions: Discharge Summary Assessment (RN) Last Done: 03/06/22 10:01 PSY Interdisciplinary Discharge Planning Last Done: 03/06/22 10:11 Coding Level of Care Code 65782 D/C day mgmt > 30 min Diagnoses Recurrent moderate major depressive disorder with anxiety F33.1; F41.9 Time Spent (min) 40
[2022-03-06 10:04] VITALS: BP 126/85; PULSE 94
== END 2022-03-06 11:00 | disposition home or self-care (01) | DRG 885 ==
LOC: ED 07:01 → 3S 11:11